=== PATIENT | female | born 1940 | race Caucasian/White ===

== ENCOUNTER 2017-01-03 13:06 | Emergency (ER) | payer OTHER ==
[~2017-01-03] VITALS: Ht 160 cm; Wt 63.0 kg
[~2017-01-03 13:06] MED LIST: ALBU1AER9 INH; CALC500T68 PO; CHOL2000 PO; FLNIN/ NAE; GARL400T4 PO; IPRA1AER2 INH; MULT-506 PO; TRAM-10 PO; TRIATAB3 PO
[2017-01-03 13:12] VITALS: TEMP 37; Ht 160 cm; Wt 63.0 kg
[2017-01-03] MEDS ORDERED: SODIUM CHLORIDE 0.9% 1000ML 1,000 ML IV STA (13:52)
[2017-01-03] MEDS ORDERED: ONDANSETRON INJ 2 MG/ML 2 ML VIAL IV STA (13:52)
[2017-01-03] MEDS ORDERED: GARL400T12 PO (13:53)
[2017-01-03] MEDS ORDERED: ALBU18002 INH (13:53)
[2017-01-03] MEDS ORDERED: HYDROmorphone INJ 0.5 MG/0.5 ML SYR IV STA (13:55)
--- NOTE | 2017-01-03 14:00 | EMERGENCY ROOM VISIT NOTE ---
History Report prepared by Jaleesa: Violetta Sosa Under the Supervision of: Dr. Wilner Crook D.O. First contact with patient: 13:37 Chief Complaint: ABDOMINAL PAIN Stated Complaint: PAIN IN STOMACH-BETWEEN BREAST BONE INTO BACK History of Present Illness The patient is a 77 year old female who presents to the Emergency Room with complaints of persistent, radiating lower abdominal pain that began last Sunday. She currently rates her discomfort as a 6/10 in severity. The patient stats that she has noticed the pain starting in her lower abdomen, radiating up through her abdomen to her right chest and to her right lung. She states that her discomfort is worsened with lying flat and with eating. The patient notes that the pain is radiating to her right upper back, but denies any lower back pain. She states that she consulted her PCP and states that she was instructed to take omeprazole and denies any relief of her symptoms. The patient denies any current pain to her lower extremities. She states that she has arthritis in her hips and experiences intermittent cramps to her legs. The patient notes a history of COPD and breast cancer in 2002 and 2007. She states that she has back problems dating back to 1991, noting that she has gone to therapy for her symptoms. Source of History: patient Onset: last Sunday Position: abdomen Symptom Intensity: 6/10 Quality: other (radiating) Timing: other (persistent) Associated Symptoms: + back pain, + chest pain Review of Systems See HPI for pertinent positives & negatives. A total of 10 systems reviewed and were otherwise negative. Past Medical & Surgical Medical Problems: (1) Arthritis (2) Back pain (3) Breast cancer (4) COPD (chronic obstructive pulmonary disease) (5) HTN (hypertension) (6) Hypertension Surgical Problems: (1) History of back surgery Family History Cancer Hypertension Social History Smoking Status: Former Smoker Alcohol Use: none Drug Use: none Marital Status: single Occupation Status: retired Current/Historical Medications Scheduled Fluticasone Propionate (Fluticasone Propionate), 1 SPRAY YESI DAILY Omeprazole (Prilosec), 20 MG PO DAILY Scheduled PRN Albuterol Sulfate (Proair Respiclick), 2 PUFFS INH Q4H PRN for SOB/Wheezing Oxycodone Immediate Rel Tab (Roxicodone Ir), 1-2 TAB PO Q4H PRN for Severe Pain Tramadol (Ultram), 50 MG PO BID PRN for Pain Allergies Coded Allergies: Prednisone (Unverified Allergy, Intermediate, face flushed and itching on face, 01/03/17) Dexamethasone (Verified Allergy, Mild, 01/03/17) Indomethacin (Verified Allergy, Mild, 01/03/17) Morphine (Verified Allergy, Unknown, vomiting, 01/03/17) Propoxyphene (Verified Allergy, Unknown, FROM DARVOCET, 01/03/17) Replaces DARVOCET-N 10 Gabapentin (Unverified Adverse Reaction, Unknown, NAUSEA, 01/03/17) Physical Exam Vital Signs Date Time Temp Pulse Resp B/P Pulse Ox O2 Delivery O2 Flow Rate FiO2 01/03/17 17:09 82 18 180/88 96 01/03/17 15:00 78 18 147/68 97 Room Air 01/03/17 13:12 37.0 89 19 139/74 96 Room Air Physical Exam GENERAL: Patient is awake, alert, and in no acute distress. Patient is resting comfortably and showing no signs of anxiety EYES: The conjunctivae are clear. The pupils are round and reactive. EARS, NOSE, MOUTH AND THROAT: The nose is without any evidence of any deformity. Mucous membranes are moist tongue is midline NECK: The neck is nontender and supple. RESPIRATORY: Scattered rhonchi noted throughout. No tachypnea or conversational dyspnea. CARDIOVASCULAR: Regular rate and rhythm noted there no murmurs rubs or gallops normal S1 normal S2 GASTROINTESTINAL: The abdomen is mildly distended, but soft. Diffuse tenderness to palpation. No guarding or rigidity noted. MUSCULOSKELETAL/EXTREMITIES: There is no evidence of gross deformity full range of motion is noted in the hips and shoulders SKIN: There is no obvious evidence of any rash. There are no petechiae, pallor or cyanosis noted. NEUROLOGIC: Patient is awake alert and oriented x3. Medical Decision & Procedures ER Provider Diagnostic Interpretation: Radiology results as stated below per my review and radiologist interpretation: KUB CLINICAL HISTORY: Generalized abdominal pain. FINDINGS: 2 AP, portable, supine abdominal radiographs are correlated with abdominal CT dated 07/17/2016. There is a nonobstructed abdominal bowel gas pattern. Mild colonic fecal retention is observed. No evidence of intraperitoneal free air is seen on this supine examination. Numerous calcified granulomas are seen in the spleen. There is no radiographic evidence of nephrolithiasis. A large phlebolith is again seen in the left hemipelvis. The skeletal structures are osteopenic. Mild lumbosacral spondylosis is observed. IMPRESSION: Nonobstructed abdominal bowel gas pattern. Electronically signed by: Kyle Land M.D. 01/03/2017 2:49 PM Dictated Date/Time: 01/03/2017 2:48 PM SINGLE VIEW CHEST CLINICAL HISTORY: Generalized abdominal pain. FINDINGS: An AP, portable, upright chest radiograph is compared to study dated 09/23/2016. The examination is mildly degraded by portable technique, apical lordotic positioning, and patient rotation. The cardiomediastinal silhouette is unremarkable. There is mild atherosclerotic calcification of the thoracic aorta. Chronic interstitial thickening is unchanged. Chronic blunting of the left posterior sulcus is again noted and likely related to pleural thickening. The lungs and pleural spaces are otherwise clear. No pneumothorax is seen. The skeletal structures are osteopenic. Calcific tendinopathy is present in both shoulders. The bony thorax is grossly intact. IMPRESSION: No acute cardiopulmonary abnormality. Electronically signed by: Kyle Land M.D. 01/03/2017 2:43 PM Dictated Date/Time: 01/03/2017 2:[address] combination TECHNIQUE: Transaxial acquisition pre and postcontrast administration. Multi axial reformatted images. FINDINGS: Mild atherosclerotic change thoracic aorta. Pulmonary vasculature enhances appropriately. There is no evidence for aneurysm or dissection. Lungs are grossly clear. IMPRESSION: 1. No evidence for aneurysm or dissection. 2. No evidence of pulmonary emboli. 3. Lungs are clear. Electronically signed by: Samy Bhat M.D. 01/03/2017 4:07 PM Dictated Date/Time: 01/03/2017 4:02 PM Laboratory Results 01/03/17 14:10 Red Blood Count 4.40, Mean Corpuscular Volume 81.8, Mean Corpuscular Hemoglobin 28.9, Mean Corpuscular Hemoglobin Concent 35.3, Mean Platelet Volume 9.4, Neutrophils (%) (Auto) 58.6, Lymphocytes (%) (Auto) 35.2, Monocytes (%) (Auto) 4.2, Eosinophils (%) (Auto) 1.4, Basophils (%) (Auto) 0.3, Neutrophils # (Auto) 6.24, Lymphocytes # (Auto) 3.74, Monocytes # (Auto) 0.45, Eosinophils # (Auto) 0.15, Basophils # (Auto) 0.03 01/03/17 14:10 Test 01/03/17 14:10 01/03/17 14:15 White Blood Count 10.64 K/uL (4.8-10.8) Red Blood Count 4.40 M/uL (4.2-5.4) Hemoglobin 12.7 g/dL (12.0-16.0) Hematocrit 36.0 % (37-47) Mean Corpuscular Volume 81.8 fL (80-100) Mean Corpuscular Hemoglobin 28.9 pg (25-34) Mean Corpuscular Hemoglobin Concent 35.3 g/dl (32-36) Platelet Count 323 K/uL (130-400) Mean Platelet Volume 9.4 fL (7.4-10.4) Neutrophils (%) (Auto) 58.6 % Lymphocytes (%) (Auto) 35.2 % Monocytes (%) (Auto) 4.2 % Eosinophils (%) (Auto) 1.4 % Basophils (%) (Auto) 0.3 % Neutrophils # (Auto) 6.24 K/uL (1.4-6.5) Lymphocytes # (Auto) 3.74 K/uL (1.2-3.4) Monocytes # (Auto) 0.45 K/uL (0.11-0.59) Eosinophils # (Auto) 0.15 K/uL (0-0.5) Basophils # (Auto) 0.03 K/uL (0-0.2) RDW Standard Deviation 38.2 fL (36.4-46.3) RDW Coefficient of Variation 12.7 % (11.5-14.5) Immature Granulocyte % (Auto) 0.3 % Immature Granulocyte # (Auto) 0.03 K/uL (0.00-0.02) Prothrombin Time 9.8 SECONDS (9.0-12.0) Prothromb Time International Ratio 0.9 (0.9-1.1) Activated Partial Thromboplast Time 23.2 SECONDS (21.0-31.0) Partial Thromboplastin Ratio 0.9 Anion Gap 8.0 mmol/L (3-11) Est Creatinine Clear Calc Drug Dose 49.1 ml/min Estimated GFR () 77.7 Estimated GFR (Non- 67.1 BUN/Creatinine Ratio 14.7 (10-20) Calcium Level 8.9 mg/dl (8.5-10.1) Total Bilirubin 0.3 mg/dl (0.2-1) Direct Bilirubin < 0.1 mg/dl (0-0.2) Aspartate Amino Transf (AST/SGOT) 14 U/L (15-37) Alanine Aminotransferase (ALT/SGPT) 16 U/L (12-78) Alkaline Phosphatase 90 U/L (45-117) Total Creatine Kinase 65 U/L (26-192) Creatine Kinase MB 0.8 ng/ml (0.5-3.6) Creatine Kinase MB Ratio 1.2 (0-3.0) Troponin I < 0.015 ng/ml (0-0.045) Total Protein 7.0 gm/dl (6.4-8.2) Albumin 3.4 gm/dl (3.4-5.0) Lipase 111 U/L (73-393) Urine Color YELLOW Urine Appearance CLEAR (CLEAR) Urine pH 5.0 (4.5-7.5) Urine Specific [place] 1.012 (1.000-1.030) Urine Protein NEG (NEG) Urine Glucose (UA) NEG (NEG) Urine Ketones NEG (NEG) Urine Occult Blood NEG (NEG) Urine Nitrite NEG (NEG) Urine Bilirubin NEG (NEG) Urine Urobilinogen NEG (NEG) Urine Leukocyte Esterase NEG (NEG) Laboratory results per my review. Medications Administered Medications (Trade) Dose Ordered Sig/Chetan Route Start Time Stop Time Status Last Admin Dose Admin Sodium Chloride (Nss 1000ml) 1,000 ml @ 999 mls/hr Q1H1M STAT IV 01/03/17 13:52 01/03/17 14:52 DC 01/03/17 14:44 999 MLS/HR Ondansetron HCl (Zofran Inj) 4 mg NOW STAT IV 01/03/17 13:52 01/03/17 13:53 DC 01/03/17 14:44 4 MG Hydromorphone HCl (Dilaudid Inj) 0.5 mg NOW STAT IV 01/03/17 13:55 01/03/17 13:56 DC 01/03/17 14:45 0.5 MG ECG Indication: abdominal pain, chest pain Rate (beats per minute): 75 Rhythm: normal sinus Findings: no ectopy, other (No acute ST segment abnormalities) ED Course 1350: The patient was evaluated in room B7. A complete history and physical examination were performed. 1352: Ordered Zofran Inj 4 mg IV, Sodium Chloride 1000 ml @ 999 mls/hr IV. 1355: Ordered Dilaudid Inj 0.5 mg IV. 1528: I reevaluated the patient and she is resting comfortably. She is going to have a CT scan. 1618: I reevaluated the patient and she is resting comfortably. I discussed all the exam findings with her and I discussed the treatment plan. She verbalized complete understanding and agreement. She is ready to go home. Medical Decision Differential diagnosis: Etiologies such as appendicitis, diverticulitis, PUD, biliary pathology, UTI, pancreatitis, obstruction, mesenteric ischemia, aortic pathology, infections, inflammatory bowel disease, renal colic, as well as others were entertained. Nursing notes reviewed. The patient is a 77-year-old female who presented to the emergency department for evaluation of upper abdominal pain which went to her chest or lower abdomen and her back. The patient's physical exam was not consistent with an acute surgical abdomen. Her EKG did not reveal any acute ischemic changes. I discussed the patient's laboratory and radiographic studies with her. She was treated with IV fluids IV pain medicine and on subsequent reevaluation was feeling much better. The patient did not have any signs of dissection on CT dissection study. The patient may be suffering from upper abdominal pain secondary to gastritis or early peptic ulcer disease. I discussed this with the patient. She was encouraged to rest and avoid any strenuous activity. She was encouraged to call her primary care physician to schedule follow-up appointment versus possible. She was also encouraged to return to emergency department immediately if symptoms change worsen or if the need arises. Impression Primary Impression: Epigastric abdominal pain Additional Impression: Right-sided chest pain Scribe Attestation The scribe's documentation has been prepared under my direction and personally reviewed by me in its entirety. I confirm that the note above accurately reflects all work, treatment, procedures, and medical decision making performed by me. Departure Information Dispostion Home / Self-Care Prescriptions Oxycodone Immediate Rel Tab (ROXICODONE IR) 5 Mg Tab 1-2 TAB PO Q4H Y for Severe Pain, #24 TAB Prov: Wilner Crook, DO 01/03/17 Omeprazole (PRILOSEC) 20 Mg Cap 20 MG PO DAILY, #30 CAP Prov: Wilner Crook, DO 01/03/17 Referrals All Lance M.D. (PCP) Forms HOME CARE DOCUMENTATION FORM, IMPORTANT VISIT INFORMATION Patient Instructions ED Abd Pain Unkn Cause Fem, My [facility] Additional Instructions Call your family in the morning to schedule a follow-up appointment. Rest and avoid any strenuous activity. Continue all medications as prescribed. Return to the emergency Department immediately if symptoms change worsen or if the need arises. Problem Qualifiers
[2017-01-03 14:23] LABS: BASO % 0.3 %; BASO ABS # 0.03 K/uL (0-0.2); COMPLETE YES; EOS % 1.4 %; IG% 0.3 %; LYMPH % 35.2 %; LYMPH ABS # 3.74 K/uL (1.2-3.4); MEAN CELL VOLUME 81.8 fL (80-100); MEAN CORPUSCULAR HEMOGLOBIN 28.9 pg (25-34); MEAN CORPUSCULAR HGB CONC 35.3 g/dl (32-36); MEAN PLATELET VOLUME 9.4 fL (7.4-10.4); MONO % 4.2 %; NEUT % 58.6 %; PLATELET COUNT 323 K/uL (130-400); WHITE BLOOD COUNT 10.64 K/uL (4.8-10.8)
[2017-01-03 14:32] LABS: INR 0.9 (0.9-1.1); PARTIAL THROMBOPLASTIN RATIO 0.9; PROTHROMBIN TIME (PATIENT) 9.8 SECONDS (9.0-12.0)
[2017-01-03 14:44] LABS: ALT/SGPT 16 U/L (12-78); BLOOD UREA NITROGEN 12 mg/dl (7-18); BUN/CREATININE RATIO 14.7 (10-20); CALCIUM 8.9 mg/dl (8.5-10.1); CARBON DIOXIDE 29 mmol/L (21-32); CHLORIDE 103 mmol/L (98-107); CREATININE 0.83 mg/dl (0.60-1.20); GLUCOSE 82 mg/dl (70-99); POTASSIUM 4.1 mmol/L (3.5-5.1); SODIUM 140 mmol/L (136-145)
--- NOTE | 2017-01-03 14:44 | DIAGNOSTIC IMAGING REPORT ---
SINGLE VIEW CHEST CLINICAL HISTORY: Generalized abdominal pain. FINDINGS: An AP, portable, upright chest radiograph is compared to study dated 09/23/2016. The examination is mildly degraded by portable technique, apical lordotic positioning, and patient rotation. The cardiomediastinal silhouette is unremarkable. There is mild atherosclerotic calcification of the thoracic aorta. Chronic interstitial thickening is unchanged. Chronic blunting of the left posterior sulcus is again noted and likely related to pleural thickening. The lungs and pleural spaces are otherwise clear. No pneumothorax is seen. The skeletal structures are osteopenic. Calcific tendinopathy is present in both shoulders. The bony thorax is grossly intact. IMPRESSION: No acute cardiopulmonary abnormality. Electronically signed by: Kyle Land M.D. 01/03/2017 2:43 PM Dictated Date/Time: 01/03/2017 2:42 PM
[2017-01-03 14:48] LABS: ALKALINE PHOSPHATASE 90 U/L (45-117); AST/SGOT 14 U/L (15-37); CKMB/CK RATIO 1.2 (0-3.0)
[2017-01-03 14:50] LABS: URINE APPEARANCE CLEAR (CLEAR); URINE BILIRUBIN NEG (NEG); URINE COLOR YELLOW; URINE NITRITE NEG (NEG); URINE SPECIFIC GRAVITY 1.012 (1.000-1.030); UROBILINOGEN NEG (NEG)
--- NOTE | 2017-01-03 14:50 | DIAGNOSTIC IMAGING REPORT ---
KUB CLINICAL HISTORY: Generalized abdominal pain. FINDINGS: 2 AP, portable, supine abdominal radiographs are correlated with abdominal CT dated 07/17/2016. There is a nonobstructed abdominal bowel gas pattern. Mild colonic fecal retention is observed. No evidence of intraperitoneal free air is seen on this supine examination. Numerous calcified granulomas are seen in the spleen. There is no radiographic evidence of nephrolithiasis. A large phlebolith is again seen in the left hemipelvis. The skeletal structures are osteopenic. Mild lumbosacral spondylosis is observed. IMPRESSION: Nonobstructed abdominal bowel gas pattern. Electronically signed by: Kyle Land M.D. 01/03/2017 2:49 PM Dictated Date/Time: 01/03/2017 2:48 PM
[2017-01-03 14:59] LABS: MANUAL MICROSCOPIC REQUIRED? NO; REVIEW REQ? NO
[2017-01-03] MEDS ORDERED: OPTIRAY 320 IV PRN (15:45)
--- NOTE | 2017-01-03 16:08 | DIAGNOSTIC IMAGING REPORT ---
Study chest CT combination TECHNIQUE: Transaxial acquisition pre and postcontrast administration. Multi axial reformatted images. FINDINGS: Mild atherosclerotic change thoracic aorta. Pulmonary vasculature enhances appropriately. There is no evidence for aneurysm or dissection. Lungs are grossly clear. IMPRESSION: 1. No evidence for aneurysm or dissection. 2. No evidence of pulmonary emboli. 3. Lungs are clear. Electronically signed by: Samy Bhat M.D. 01/03/2017 4:07 PM Dictated Date/Time: 01/03/2017 4:02 PM
[2017-01-03] MEDS ORDERED: OMEP20CA9 PO (16:12)
[2017-01-03] MEDS ORDERED: OXYC1TAB3 PO (16:12)
[2017-01-03 17:09] VITALS: BP 180/88; PULSE 82; O2SAT 96
[2017-01-16] MEDS ORDERED: PREG1CAP28 PO (10:33)
== END 2017-01-03 17:09 | disposition home or self-care (01) ==
LOC: C.EDB 13:08
DX: R10.13 Epigastric pain (principal); R07.9 Chest pain, unspecified; M54.9 Dorsalgia, unspecified; I10 Essential (primary) hypertension; M19.90 Unspecified osteoarthritis, unspecified site; J44.9 Chronic obstructive pulmonary disease, unspecified; Z79.899 Other long term (current) drug therapy; Z88.5 Allergy status to narcotic agent; Z88.8 Allergy status to other drugs, medicaments and biological substances; Z85.3 Personal history of malignant neoplasm of breast; Z87.891 Personal history of nicotine dependence; Z82.49 Family history of ischemic heart disease and other diseases of the circulatory system

== ENCOUNTER 2017-01-09 08:18 | Emergency (ER) | payer OTHER ==
[~2017-01-09] VITALS: Ht 160 cm; Wt 63.6 kg
[~2017-01-09 08:18] MED LIST changes: +ALBU18002 INH; -ALBU1AER9 INH; -CALC500T68 PO; -CHOL2000 PO; -GARL400T4 PO; -IPRA1AER2 INH; -MULT-506 PO; +OMEP20CA9 PO; +OXYC1TAB3 PO; -TRIATAB3 PO
[2017-01-09 08:21] VITALS: BP 181/96; PULSE 86; TEMP 37.1; O2SAT 99; Ht 160 cm; Wt 63.6 kg
[2017-01-09] MEDS ORDERED: VALA1TAB31 PO (08:41)
[2017-01-09] MEDS ORDERED: OXYC-57 PO (08:41)
[2017-01-09] MEDS ORDERED: KETOROLAC TROMETHAMINE 60 MG/2 ML VIAL IM STA (08:42)
[2017-01-09] MEDS ORDERED: OMEP20TA PO (08:50)
--- NOTE | 2017-01-09 09:42 | EMERGENCY ROOM VISIT NOTE ---
History Report prepared by Jaleesa: Torres Nielsen Under the Supervision of: Dr. Obed Moore D.O. First contact with patient: 08:36 Chief Complaint: RASH Stated Complaint: PAIN IN BREAST BACK TO LUNGS History of Present Illness The patient is a 77 year old female who presents to the Emergency Room with complaints of a worsening rash starting about 3-4 days ago. The rash is located over her right breast and radiating to the back. She also notes severe pain and itchiness. She was evaluated at the Emergency Room a few days ago for similar symptom. Since discharge, her symptoms have worsened. She has been taking Oxycodone without relief. She denies any fevers, chills, or any other complaints. The patient reports her current symptoms are similar to her past shingles symptoms. Source of History: patient Onset: about 3-4 days ago Position: other (right breast and radiating to the back) Quality: other (rash) Timing: worsening Modifying Factors (Relieving): other (Oxycodone without relief) Associated Symptoms: No chills, No fevers Review of Systems See HPI for pertinent positives & negatives. A total of 10 systems reviewed and were otherwise negative. Past Medical & Surgical Medical Problems: (1) Arthritis (2) Back pain (3) Breast cancer (4) COPD (chronic obstructive pulmonary disease) (5) HTN (hypertension) (6) Hypertension Surgical Problems: (1) History of back surgery Family History Cancer Hypertension Social History Smoking Status: Former Smoker Alcohol Use: none Drug Use: none Marital Status: single Occupation Status: retired Current/Historical Medications Scheduled Fluticasone Propionate (Fluticasone Propionate), 1 SPRAY YESI DAILY Omeprazole (Omeprazole), 20 MG PO DAILY Valacyclovir Hcl (Valtrex), 1 TAB PO TID Scheduled PRN Albuterol Sulfate (Proair Respiclick), 2 PUFFS INH Q4H PRN for SOB/Wheezing Oxycodone/Acetaminophen 5MG/325MG (Percocet 5MG/325MG), 1 TAB PO Q6H PRN for Pain Allergies Coded Allergies: Prednisone (Unverified Allergy, Intermediate, face flushed and itching on face, 01/09/17) Dexamethasone (Verified Allergy, Mild, 01/09/17) Indomethacin (Verified Allergy, Mild, 01/09/17) Morphine (Verified Allergy, Unknown, vomiting, 01/09/17) Propoxyphene (Verified Allergy, Unknown, FROM DARVOCET, 01/09/17) Replaces DARVOCET-N 10 Gabapentin (Unverified Adverse Reaction, Unknown, NAUSEA, 01/09/17) Physical Exam Vital Signs Date Time Temp Pulse Resp B/P Pulse Ox O2 Delivery O2 Flow Rate FiO2 01/09/17 08:21 37.1 86 18 181/96 99 Room Air Physical Exam CONSTITUTIONAL/VITAL SIGNS: Reviewed / noted above. GENERAL: Non-toxic in appearance. INTEGUMENTARY: Warm, dry, and [place]. Small vesicular rash in the right lateral breast positioned in or around the t4 dermatome with pain radiating along the back with the same dermatome. HEAD: Normocephalic. EYES: without scleral icterus or trauma. ENT/OROPHARYNX: clear and moist. LYMPHADENOPATHY/NECK: Is supple without lymphadenopathy or meningismus. RESPIRATORY: Lungs clear and equal. CARDIOVASCULAR: Regular rate and rhythm. GI/ABDOMEN: Soft and nontender. No organomegaly or pulsatile mass. No rebound or guarding. Normal bowel sounds. EXTREMITIES: Warm and well perfused. BACK: No CVA tenderness. NEUROLOGICAL: Intact without focal deficits. PSYCHIATRIC: normal affect. MUSCULOSKELETAL: Normally developed with good muscle tone. Medical Decision & Procedures Medications Administered Medications (Trade) Dose Ordered Sig/Chetan Route Start Time Stop Time Status Last Admin Dose Admin Ketorolac Tromethamine (Toradol Inj) 60 mg NOW STAT IM 01/09/17 08:42 01/09/17 08:44 DC 01/09/17 08:57 60 MG Valacyclovir HCl (Valtrex Tab) 1,000 mg NOW ONCE PO 01/09/17 08:45 01/09/17 08:46 DC 01/09/17 08:57 1,000 MG ED Course 0836: Previous medical records were reviewed. The patient was evaluated in room B07. A complete history and physical examination was performed. 0842: Toradol Inj 60 mg IM 0845: Valtrex Tab 1000 mg PO 0909: On reevaluation, the patient is resting comfortably. I discussed the results and findings with the patient. She verbalized agreement of the treatment plan. She was discharged home. Medical Decision Differential diagnosis: Etiologies such as contact dermatitis, viral exanthem, urticaria, allergic reaction, Fajardo-Kee syndrome, toxic epidermal necrolysis, erythema multiforme, cellulitis, scabies, HSV, varicella, zoster, eczema, staph scalded skin syndrome, fungal infection, as well as others were entertained. This is a 77-year-old female who presents to the ED with a chief complaint of a rash on her right and her chest wall. She came in on the for discomfort and had a complete workup at that time. Nothing was discovered she was sent home on oxycodone. Several days after this, she developed a rash on her right breast. This is several days ago that it developed. She reports pain that radiates into her back along the same dermatome. Her rash is consistent with a shingles rash. She was started on valacyclovir as well as Percocet. She was told to follow-up with her doctor this week for recheck. She was felt to be stable for discharge. Impression Primary Impression: Shingles Scribe Attestation The scribe's documentation has been prepared under my direction and personally reviewed by me in its entirety. I confirm that the note above accurately reflects all work, treatment, procedures, and medical decision making performed by me. Departure Information Dispostion Home / Self-Care Prescriptions Oxycodone/Acetaminophen 5MG/325MG (PERCOCET 5MG/325MG) Tab 1 TAB PO Q6H Y for Pain, #20 TAB Prov: Obed Moore D.O. 01/09/17 Valacyclovir Hcl (VALTREX) 1 Gm Tab 1 TAB PO TID for 7 Days, #21 TAB Prov: Obed Moore D.O. 01/09/17 Referrals All Lance M.D. (PCP) Forms HOME CARE DOCUMENTATION FORM, IMPORTANT VISIT INFORMATION, WORK / SCHOOL INSTRUCTIONS Patient Instructions My [facility]. Additional Instructions Oxycodone and valacyclovir as prescribed. Follow-up with your doctor for recheck later this week.
[2017-01-16] MEDS ORDERED: PREG1CAP28 PO (10:33)
== END 2017-01-10 09:04 | disposition home or self-care (01) ==
LOC: C.EDB 08:20
DX: B02.9 Zoster without complications (principal); I10 Essential (primary) hypertension; J44.9 Chronic obstructive pulmonary disease, unspecified; M19.90 Unspecified osteoarthritis, unspecified site; Z85.3 Personal history of malignant neoplasm of breast; Z79.899 Other long term (current) drug therapy; Z87.891 Personal history of nicotine dependence; Z88.5 Allergy status to narcotic agent; Z88.8 Allergy status to other drugs, medicaments and biological substances; Z80.9 Family history of malignant neoplasm, unspecified; Z82.49 Family history of ischemic heart disease and other diseases of the circulatory system

== ENCOUNTER 2017-02-21 23:52 | Emergency (ER) | payer OTHER ==
[~2017-02-21] VITALS: Ht 160 cm; Wt 64.2 kg
[~2017-02-21 23:52] MED LIST changes: -OMEP20CA9 PO; +OMEP20TA PO; +OXYC-57 PO; -OXYC1TAB3 PO; +PREG1CAP28 PO; -TRAM-10 PO
[2017-02-21 23:59] VITALS: TEMP 36.7; Ht 160 cm; Wt 64.2 kg
--- NOTE | 2017-02-22 00:27 | EMERGENCY ROOM VISIT NOTE ---
History Report prepared by Jaleesa: Angel Villavicencio Under the Supervision of: Dr. Winston Paige M.D. First contact with patient: 00:19 Chief Complaint: BACK PAIN Stated Complaint: PAIN IN LEGS AND BACK,BLOOD PRESSURE UP History of Present Illness The patient is a 77 year old female who presents to the Emergency Room with complaints of increased lower back pain today. The patient describes cramping pain that radiates down her left leg. The pain is worse when she is laying down. She takes Tramadol for chronic pain, but did not have any today as she ran out last night. Her pain is usually kept under control with Tramadol. The patient denies incontinence of bowel or bladder and denies lower extremity weakness. She also denies any recent episodes of syncope or abdominal pain. The patient has an appointment with Orthopedics on February 27. She has a history of right-side shingles. The rash has mostly resolved from her last flare up. Source of History: patient Onset: today Position: back (lower) Quality: cramping Timing: other (increased) Modifying Factors (Worsening): other (laying down) Modifying Factors (Relieving): other (Tramadol) Associated Symptoms: No LOC, No abdominal pain, No weakness Review of Systems See HPI for pertinent positives & negatives. A total of 6 systems reviewed and were otherwise negative. Past Medical & Surgical Medical Problems: (1) Arthritis (2) Back pain (3) Breast cancer (4) COPD (chronic obstructive pulmonary disease) (5) HTN (hypertension) (6) Hypertension Surgical Problems: (1) History of back surgery Family History Cancer Hypertension Social History Smoking Status: Never Smoker Alcohol Use: none Drug Use: none Marital Status: single Occupation Status: retired Current/Historical Medications Scheduled Fluticasone Propionate (Fluticasone Propionate), 1 SPRAY YESI DAILY Omeprazole (Omeprazole), 20 MG PO DAILY Pregabalin (Lyrica), 75 MG PO BID Scheduled PRN Albuterol Sulfate (Proair Respiclick), 2 PUFFS INH Q4H PRN for SOB/Wheezing Oxycodone/Acetaminophen 5MG/325MG (Percocet 5MG/325MG), 1 TAB PO Q6H PRN for Pain Tramadol (Ultram), 50-100 MG PO Q6H PRN for Pain Allergies Coded Allergies: Prednisone (Unverified Allergy, Intermediate, face flushed and itching on face, 02/22/17) Dexamethasone (Verified Allergy, Mild, 02/22/17) Indomethacin (Verified Allergy, Mild, 02/22/17) Morphine (Verified Allergy, Unknown, vomiting, 02/22/17) Propoxyphene (Verified Allergy, Unknown, FROM DARVOCET, 02/22/17) Replaces DARVOCET-N 10 Gabapentin (Unverified Adverse Reaction, Unknown, NAUSEA, 02/22/17) Physical Exam Vital Signs Date Time Temp Pulse Resp B/P Pulse Ox O2 Delivery O2 Flow Rate FiO2 02/22/17 00:47 95 20 181/90 98 02/21/17 23:59 36.7 93 20 175/113 98 Room Air Physical Exam GENERAL: Patient is uncomfortable appearing and in mild distress. HEENT: No acute trauma, normocephalic atraumatic, mucous membranes moist, no nasal congestion, no scleral icterus. NECK: No stridor, no adenopathy, no meningismus, trachea is midline. LUNGS: No dyspnea. Clear to auscultation and equal bilaterally. No wheeze, no rhonchi. HEART: Regular rate and rhythm. No murmurs, rubs, gallops appreciated. ABDOMEN: Soft, nontender, bowel sounds positive, no masses appreciated, no peritonitis. BACK: No midline tenderness, no CVA tenderness EXTREMITIES: Normal motion all extremities, no cyanosis, no edema. NEUROLOGIC: Alert and oriented, no acute motor or sensory deficits, no focal weakness, cranial nerves grossly intact. SKIN: No jaundice, no diaphoresis. Several healing lesions over the right lateral breast. Medical Decision & Procedures Medications Administered Medications (Trade) Dose Ordered Sig/Chetan Route Start Time Stop Time Status Last Admin Dose Admin Oxycodone/ Acetaminophen (Percocet 5/ 325MG Home Pack) 1 homepack UD ONCE PO 02/22/17 00:30 02/22/17 00:31 DC 02/22/17 00:34 1 HOMEPACK Tramadol HCl (Ultram Home Pack) 1 homepack UD ONCE PO 02/22/17 00:30 02/22/17 00:31 DC 02/22/17 00:34 1 HOMEPACK ED Course 0021: The patient was evaluated in room A2. A complete history and physical exam was performed. 0028: The [place] Prescription Drug Monitoring Program was reviewed regarding this patient. She received a Tramadol prescription on 02/02. 0030: Discussed the discharge instructions with the patient. She verbalized understanding and agreement. The patient is ready for discharge. 0030: Tramadol 1 homepack PO, Percocet 5/325 mg PO homepack. Medical Decision Differential: Musculoskeletal, Disc Herniation, Fracture, Cord Compression, Discitis, Infectious, Aortic Pathology, Renal Colic, UTI/Pyelonephritis, Acute Exacerbation of Chronic Pain, Sciatica, Cauda Equina, amongst other pathologies entertained. 74 yr old female with chronic low back issues and periodic sciatica. Notes acting up over last day since she ran out of her tramadol. Regular Rx of tramadol which she tolerates well. Will give limited number rx along with to go of Percocet for acute symptoms tonight as she will have to take once she drives home. No neuro deficits, no abdominal pain and n/v intact thus I do not feel imaging necessary and neither dose patient. HTN on arrival likely secondary to pain as has been documented many times previously in chart. Discussed this with patient and she will follow up with PCP. Discussed symptoms requiring RTED. Patient notes she usually does not do Steroids for this type of pain which seems reasonable as likely flare up is due to running out of meds. [place] Drug Monitoring Program Search Results: patient reviewed within database Drug Monitoring Findings: She received a Tramadol prescription on 02/02. Impression Primary Impression: Acute exacerbation of chronic low back pain Additional Impressions: Sciatica of left side HTN (hypertension) Scribe Attestation The scribe's documentation has been prepared under my direction and personally reviewed by me in its entirety. I confirm that the note above accurately reflects all work, treatment, procedures, and medical decision making performed by me. Departure Information Dispostion Home / Self-Care Prescriptions Tramadol (Ultram) 50 Mg Tab 50-100 MG PO Q6H Y for Pain, #15 TAB Prov: Winston Paige M.D. 02/22/17 Referrals All Lance M.D. (PCP) Forms HOME CARE DOCUMENTATION FORM, IMPORTANT VISIT INFORMATION Patient Instructions ED Sciatica, My [facility] Additional Instructions It is important to follow up with your primary care provider for further evaluation and treatment. Your blood pressure was elevated today and thus you should get it rechecked by your primary care provider and discuss further treatment options as needed. You have received a narcotic pain medication. These medications may cause drowsiness and should not be used with other sedative medications. Do not drive , drink alcohol, perform dangerous activities, nor make important decisions after taking these medications. retirement use or inappropriate use may lead to addiction. Problem Qualifiers Additional Impressions: HTN (hypertension) Hypertension type: unspecified secondary hypertension Qualified Codes: I15.9 - Secondary hypertension, unspecified
[2017-02-22] MEDS ORDERED: TRAMADOL HCL 50 MG HOME PACK PO ONE (00:30)
[2017-02-22] MEDS ORDERED: PERCOCET HOME PACK PO ONE (00:30)
[2017-02-22] MEDS ORDERED: TRAM-10 PO (00:31)
[2017-02-22 00:47] VITALS: BP 181/90; PULSE 95; O2SAT 98
== END 2017-02-22 00:49 | disposition home or self-care (01) ==
LOC: C.EDB 23:55 → C.EDA 02-22 00:49
DX: M54.5 Low back pain (principal); M53.3 Sacrococcygeal disorders, not elsewhere classified; G89.29 Other chronic pain; I10 Essential (primary) hypertension; J44.9 Chronic obstructive pulmonary disease, unspecified; Z98.890 Other specified postprocedural states; Z79.899 Other long term (current) drug therapy; Z88.5 Allergy status to narcotic agent; Z88.8 Allergy status to other drugs, medicaments and biological substances; Z80.9 Family history of malignant neoplasm, unspecified; Z82.49 Family history of ischemic heart disease and other diseases of the circulatory system

== ENCOUNTER → 2017-02-22 | Outpatient (CLI) | payer OTHER ==
[~2017-02-22] MED LIST changes: +CALC-51 PO; +CHOL2000 PO; +HYDR25TA4 PO; +IPRASOL4 INH; +LISI-461 PO; +MULT-916 PO; +TRAM-10 PO
--- NOTE | 2017-02-22 15:07 | MAMMOGRAPHY REPORT ---
BILATERAL DIGITAL SCREENING MAMMOGRAM TOMOSYNTHESIS WITH CAD: 02/22/2017 CLINICAL HISTORY: Asymptomatic. Personal history of breast cancer. TECHNIQUE: Breast tomosynthesis in addition to standard 2D mammography was performed. Current study was also evaluated with a Computer Aided Detection (CAD) system. COMPARISON: Comparison is made to exams dated: 02/18/2016 mammogram, 02/10/2015 mammogram, 02/09/2014 m ammogram, 02/06/2013 mammogram, 02/05/2012 mammogram, and 02/01/2011 mammogram - [facility]. BREAST COMPOSITION: There are scattered areas of fibroglandular density in both breasts. FINDINGS: No suspicious masses, calcifications, or areas of architectural distortion are noted in e ither breast. There has been no significant interval change compared to prior exams. There are stab le post surgical changes in the left 12:00 breast from prior lumpectomy. A biopsy marker clip is ag ain noted at the lumpectomy bed. IMPRESSION: ACR BI-RADS CATEGORY 2: BENIGN There is no mammographic evidence of malignancy. A 1 year screening mammogram is recommended. The p atient will receive written notification of the results. Approximately 10% of breast cancers are not detected with mammography. A negative mammographic repor t should not delay biopsy if a clinically suggestive mass is present. Amanda Amador M.D. /:02/22/2017 13:35:34 Railroad Track Mechanic: Winifred ESTES(Dustin)(M), [facility] letter sent: Normal 1/2 BI-RADS Code: ACR BI-RADS Category 2: Benign
== END | disposition home or self-care (01) ==
LOC: C.MAMM 09:32
PROVIDERS: ATTEND Family Medicine
DX: Z12.31 Encounter for screening mammogram for malignant neoplasm of breast (principal); Z85.3 Personal history of malignant neoplasm of breast; Z08 Encounter for follow-up examination after completed treatment for malignant neoplasm

== ENCOUNTER 2017-03-18 07:29 | Emergency (ER) | payer OTHER ==
[~2017-03-18] VITALS: Ht 157.5 cm; Wt 65.8 kg
[~2017-03-18 07:29] MED LIST changes: -CALC-51 PO; -CHOL2000 PO; -HYDR25TA4 PO; -IPRASOL4 INH; -LISI-461 PO; -MULT-916 PO
[2017-03-18 07:34] VITALS: TEMP 36.5; Ht 157.5 cm; Wt 65.8 kg
[2017-03-18] MEDS ORDERED: CHOL2000 PO (07:59)
[2017-03-18] MEDS ORDERED: CALC-51 PO (07:59)
[2017-03-18] MEDS ORDERED: IPRASOL4 INH (07:59)
[2017-03-18] MEDS ORDERED: TRAM-10 PO (07:59)
[2017-03-18] MEDS ORDERED: HYDR25TA4 PO (07:59)
[2017-03-18] MEDS ORDERED: TRAMADOL HCL 50 MG TAB PO STA (08:02)
[2017-03-18 08:11] VITALS: BP 201/88; PULSE 88; O2SAT 96
--- NOTE | 2017-03-18 08:11 | EMERGENCY ROOM VISIT NOTE ---
History Report prepared by Jaleesa: Judah Kidd Under the Supervision of: Dr. Fabiola Olson D.O. First contact with patient: 07:44 Chief Complaint: MEDICATION REFILL REQUEST Stated Complaint: CIERA. LEG PAIN/HIP History of Present Illness The patient is a 77 year old female who presents to the Emergency Room with complaints of a medication refill request today. Per the nurse, she was prescribed Tramadol 50 mg BID, but has been taking it TID. She notes that she ran out of her Tramadol prescription as she forgot to order more. she last took Tramadol 2 days ago. The patient states she receives her Tramadol [address] [facility] for her ongoing back pain. She reports she had back surgery, and has had pain in her back that radiates down the back of both her legs, left worse than right. The patient states she cannot take only 2 Tramadol per day as prescribed because "that amount does not help," and instead admits to taking 3 per day. She indicates that she is going to [facility] tomorrow to follow up with her Tramadol prescription. The pain admits to currently having the radiating back pain, and also some abdominal pain from a recent GI bug. Source of History: patient Onset: today Position: back Quality: other (medication request for back pain) Timing: other (episode) Associated Symptoms: + abdominal pain Note: Patient reports bilateral leg pain. Review of Systems See HPI for pertinent positives & negatives. A total of 10 systems reviewed and were otherwise negative. Past Medical & Surgical Medical Problems: (1) Arthritis (2) Back pain (3) Breast cancer (4) COPD (chronic obstructive pulmonary disease) (5) HTN (hypertension) (6) Hypertension Surgical Problems: (1) History of back surgery Family History Cancer Hypertension Social History Smoking Status: Current Every Day Smoker Alcohol Use: none Drug Use: none Marital Status: single Occupation Status: retired Current/Historical Medications Scheduled Calcium Carbonate-Vitamin D (Calcium), 1 TAB PO DAILY Cholecalciferol (Vitamin D3), 2,000 UNITS PO DAILY Fluticasone Propionate (Fluticasone Propionate), 1 SPRAY YESI DAILY Hydrochlorothiazide (Hctz), 25 MG PO DAILY Omeprazole (Omeprazole), 20 MG PO DAILY Scheduled PRN Albuterol Sulfate (Proair Respiclick), 2 PUFFS INH Q4H PRN for SOB/Wheezing Ipratropium-Albuterol (Duoneb), 1 TREATMENT INH Q4H PRN for SOB/Wheezing Tramadol (Ultram), 50 MG PO BID PRN for Pain Allergies Coded Allergies: Prednisone (Unverified Allergy, Intermediate, face flushed and itching on face, 03/18/17) Dexamethasone (Verified Allergy, Mild, 03/18/17) Indomethacin (Verified Allergy, Mild, 03/18/17) Morphine (Verified Allergy, Unknown, vomiting, 03/18/17) Propoxyphene (Verified Allergy, Unknown, FROM DARVOCET, 03/18/17) Replaces DARVOCET-N 10 Gabapentin (Unverified Adverse Reaction, Unknown, NAUSEA, 03/18/17) Physical Exam Vital Signs Date Time Temp Pulse Resp B/P Pulse Ox O2 Delivery O2 Flow Rate FiO2 03/18/17 08:11 88 18 201/88 96 03/18/17 07:34 36.5 83 18 198/99 97 Room Air Physical Exam HEENT: Head - normocephalic and atraumatic Pupils are equal, round, and reactive to light. Extraocular eye muscles are intact, and sclera are anicteric. Nose - moist nasal mucosa without discharge. Mouth - moist buccal mucosa. Oropharynx is nonerythematous and there is no tonsillar exudate or edema noted. Neck: Supple; no JVD, nuchal rigidity, cervical lymphadenopathy. Heart: Regular rate and rhythm. There is a normal S1 and S2 with no murmurs, clicks, or gallops appreciated. Lungs: Clear to auscultation bilaterally with no wheezes, rales, or rhonchi. Abdomen: Soft, completely nontender, nondistended, with good bowel sounds. There are no palpable pulsatile masses or hepatosplenomegaly. There is no guarding, rigidity, or rebound noted. Extremities: No evidence of cyanosis, clubbing, or edema. There are easily palpable peripheral pulses. Skin: warm and dry with good turgor and no rashes. Back: The patient has some discomfort with palpation over the gluteal cleft. Medical Decision & Procedures Medications Administered Medications (Trade) Dose Ordered Sig/Chetan Route Start Time Stop Time Status Last Admin Dose Admin Tramadol HCl (Ultram Tab) 50 mg NOW STAT PO 03/18/17 08:02 03/18/17 08:04 DC 03/18/17 08:13 50 MG Tramadol HCl (Ultram Home Pack) 1 homepack UD ONCE PO 03/18/17 08:15 03/18/17 08:16 DC 03/18/17 08:13 1 HOMEPACK Procedure Medications Ordered: 0802: Ordered Tramadol HCl 50 mg PO. 0815: Ordered Tramadol HCl 1 homepack PO. ED Course 0800: Past medical records reviewed. The patient was evaluated in room B5. A complete history and physical exam was performed. The patient was looked up in the [place] DMP. She was originally's described 50 mg of tramadol 3 times a day but has been changed to twice a day dosing by her PCP. She has run out of her tramadol before she is able to get that refilled. 0802: Ordered Tramadol HCl 50 mg PO. 0815: Ordered Tramadol HCl 1 homepack PO. Medical Decision The patient is a 77 year old female who presents to the Emergency Room with complaints of a medication refill request today. Differential Diagnoses: Exacerbation of chronic low back pain, Tramadol overuse , drug seeking behavior, and inability to tolerate lower dose of Tramadol. The patient has used an increased amount of tramadol and has run out. His complaining of her low back pain which is typical for her. She plans to follow up with her PCP tomorrow and asked if we could prescribe some tramadol until that time. She was given tramadol here in the home pack to use until she can follow-up tomorrow morning. [place] Drug Monitoring Program Search Results: patient reviewed within database, see additional documentation Drug Monitoring Findings: Patient received a 30 day supply of Tramadol 50 mg BID on 02/23/17, which she did not fill until 02/26/17. She was here the day before, 02/22/17, after running out of Tramadol, and received some Tramadol while in the ER. Impression Primary Impression: Encounter for medication refill Additional Impression: Low back pain Scribe Attestation The scribe's documentation has been prepared under my direction and personally reviewed by me in its entirety. I confirm that the note above accurately reflects all work, treatment, procedures, and medical decision making performed by me. Departure Information Dispostion Home / Self-Care Referrals All Lance M.D. (PCP) Patient Instructions My [facility] Additional Instructions You must discuss the Tramadol dosing with Fara tomorrow Problem Qualifiers
[2017-03-18] MEDS ORDERED: TRAMADOL HCL 50 MG HOME PACK PO ONE (08:15)
== END 2017-03-18 08:24 | disposition home or self-care (01) ==
LOC: C.EDB 07:58
DX: Z76.0 Encounter for issue of repeat prescription (principal); M54.5 Low back pain; I10 Essential (primary) hypertension; J44.9 Chronic obstructive pulmonary disease, unspecified; M19.90 Unspecified osteoarthritis, unspecified site; F17.200 Nicotine dependence, unspecified, uncomplicated; Z85.3 Personal history of malignant neoplasm of breast; Z98.890 Other specified postprocedural states; Z79.899 Other long term (current) drug therapy; Z88.5 Allergy status to narcotic agent; Z88.8 Allergy status to other drugs, medicaments and biological substances

== ENCOUNTER → 2017-03-28 | Outpatient (CLI) | payer OTHER ==
[2017-03-26 13:40] LABS: BLOOD UREA NITROGEN 17 mg/dl (7-18); CREATININE 0.81 mg/dl (0.60-1.20)
[~2017-03-28] MED LIST changes: +CALC-51 PO; +CHOL2000 PO; +GADAVIST IV PRN; +HYDR25TA4 PO; +IPRASOL4 INH; +LISI-461 PO; +MULT-916 PO; -OXYC-57 PO; -PREG1CAP28 PO
--- NOTE | 2017-03-28 12:37 | DIAGNOSTIC IMAGING REPORT ---
MRI OF THE LUMBAR SPINE WITH AND WITHOUT CONTRAST CLINICAL HISTORY: Lumbar back pain radiating into both lower extremities. COMPARISON STUDY: Lumbar spine MRI July 11, 2012. TECHNIQUE: Utilizing a 1.5 Selene magnet and dedicated coil, multiplanar, multiecho imaging of the lumbar spine was performed before and after uneventful IV administration of 6 mL of Gadavist. FINDINGS: For purposes of numbering on this exam, the L5-S1 disc space is assigned to axial image 23 of 25. There is minimal anterolisthesis of L5 on S1. Vertebral body heights are maintained. No intracanalicular mass or fluid collection is present. Conus terminates at the upper L2 level. Paravertebral soft tissues are unremarkable. L1-2: The central canal and neural foramen are patent. L2-3: The central canal and neural foramen are patent. L3-4: The central canal is patent. There is mild facet arthrosis. There is mild narrowing of the left neural foramen. Post surgical findings suggestive of a left hemilaminectomy at this level are noted. L4-5: Central canal is patent. There is mild facet arthrosis. There is mild narrowing of both neural foramen. L5-S1: There is a tiny central annular tear. There is moderate facet arthrosis. There is mild narrowing of the neural foramen. Central canal is patent. IMPRESSION: Mild multilevel degenerative changes of the lumbar spine. Patent central canal. Mild multilevel neural foraminal stenosis. Postsurgical changes at the left L3-L4 level. Electronically signed by: Durga Davis M.D. 03/28/2017 12:36 PM Dictated Date/Time: 03/28/2017 12:29 PM
== END | disposition home or self-care (01) ==
LOC: C.MRI 10:18
PROVIDERS: ATTEND Physician Assistant
DX: M54.5 Low back pain (principal)

== ENCOUNTER 2017-04-13 02:15 | Emergency (ER) | payer OTHER ==
[~2017-04-13] VITALS: Ht 160 cm; Wt 67.2 kg
[~2017-04-13 02:15] MED LIST changes: -GADAVIST IV PRN; -LISI-461 PO; -MULT-916 PO
[2017-04-13 02:25] VITALS: TEMP 36.7; Ht 160 cm; Wt 67.2 kg
[2017-04-13 02:58] LABS: BASO % 0.3 %; BASO ABS # 0.03 K/uL (0-0.2); COMPLETE YES; EOS % 1.4 %; HEMATOCRIT 40.9 % (37-47); IG% 0.4 %; LYMPH % 36.1 %; LYMPH ABS # 3.68 K/uL (1.2-3.4); MEAN CELL VOLUME 84.2 fL (80-100); MEAN CORPUSCULAR HEMOGLOBIN 27.8 pg (25-34); MEAN PLATELET VOLUME 9.2 fL (7.4-10.4); MONO % 5.9 %; NEUT % 55.9 %; PLATELET COUNT 349 K/uL (130-400); RED BLOOD COUNT 4.86 M/uL (4.2-5.4); WHITE BLOOD COUNT 10.18 K/uL (4.8-10.8)
--- NOTE | 2017-04-13 02:59 | EMERGENCY ROOM VISIT NOTE ---
History Report prepared by Jaleesa: Torres Nielsen Under the Supervision of: Dr. Fabiola Olsno D.O. First contact with patient: 02:27 Chief Complaint: HYPERTENSION Stated Complaint: HIGH BP History of Present Illness The patient is a 77 year old female who presents to the Emergency Room with complaints of high blood pressure occurring tonight. She was having diaphoresis since yesterday. She woke up tonight and found her blood pressure to be high. She does not take her blood pressure regularly. She has a history of hypertension. She has a history of COPD but reports that she was more short of breath today than normal. 2 days ago, she was diagnosed with sinusitis by her PCP. Since starting Amoxicillin as prescribed by her PCP she has been having a dry mouth. She also complains of chronic back and leg pain. The patient denies any chest pain, abdominal pain, or any other complaints. Source of History: patient Onset: tonight Position: other (global) Quality: other (high blood pressure) Associated Symptoms: + SOB, + diaphoresis, No abdominal pain, No chest pain Review of Systems See HPI for pertinent positives & negatives. A total of 10 systems reviewed and were otherwise negative. Past Medical & Surgical Medical Problems: (1) Arthritis (2) Back pain (3) Breast cancer (4) COPD (chronic obstructive pulmonary disease) (5) HTN (hypertension) (6) Hypertension Surgical Problems: (1) History of back surgery Family History Cancer Hypertension Social History Smoking Status: Current Every Day Smoker Alcohol Use: none Drug Use: none Marital Status: single Occupation Status: retired Current/Historical Medications Scheduled Calcium Carbonate-Vitamin D (Calcium), 1 TAB PO DAILY Cholecalciferol (Vitamin D3), 2,000 UNITS PO DAILY Fluticasone Propionate (Fluticasone Propionate), 1 SPRAY YESI DAILY Hydrochlorothiazide (Hctz), 12.5 MG PO DAILY Lisinopril (Lisinopril), 10 MG PO DAILY Multiple Vitamins W/ Minerals (Multivitamin Adults 50+), 1 TAB PO DAILY Omeprazole (Omeprazole), 20 MG PO DAILY Scheduled PRN Albuterol Sulfate (Proair Respiclick), 2 PUFFS INH Q4H PRN for SOB/Wheezing Ipratropium-Albuterol (Duoneb), 1 TREATMENT INH Q4H PRN for SOB/Wheezing Allergies Coded Allergies: Prednisone (Verified Allergy, Intermediate, face flushed and itching on face, 04/13/17) Dexamethasone (Verified Allergy, Mild, 04/13/17) Indomethacin (Verified Allergy, Mild, 04/13/17) Morphine (Verified Allergy, Unknown, vomiting, 04/13/17) Propoxyphene (Verified Allergy, Unknown, FROM DARVOCET, 04/13/17) Replaces DARVOCET-N 10 Gabapentin (Verified Adverse Reaction, Unknown, NAUSEA, 04/13/17) Physical Exam Vital Signs Date Time Temp Pulse Resp B/P Pulse Ox O2 Delivery O2 Flow Rate FiO2 04/13/17 04:50 72 20 222/83 96 Room Air 04/13/17 03:35 76 20 206/95 96 Room Air 04/13/17 02:46 77 04/13/17 02:25 36.7 84 20 209/98 96 Room Air Physical Exam HEENT: Head - normocephalic and atraumatic Pupils are equal, round, and reactive to light. Extraocular eye muscles are intact, and sclera are anicteric. Nose - moist nasal mucosa without discharge. Mouth - moist buccal mucosa. Oropharynx is nonerythematous and there is no tonsillar exudate or edema noted. Neck: Supple; no JVD, nuchal rigidity, cervical lymphadenopathy. Heart: Regular rate and rhythm. There is a normal S1 and S2 with no murmurs, clicks, or gallops appreciated. Lungs: Clear to auscultation bilaterally with no wheezes, rales, or rhonchi. Abdomen: Soft, completely nontender, nondistended, with good bowel sounds. There are no palpable pulsatile masses or hepatosplenomegaly. There is no guarding, rigidity, or rebound noted. Extremities: No evidence of cyanosis, clubbing, or edema. There are easily palpable peripheral pulses. Skin: warm and dry with good turgor and no rashes. Medical Decision & Procedures ER Provider Diagnostic Interpretation: X-ray results as stated below per interpretation by me: PORTABLE CHEST X-RAY No cardiomegaly, emphysematous changes to the lungs. Laboratory Results 04/13/17 02:45 Red Blood Count 4.86, Mean Corpuscular Volume 84.2, Mean Corpuscular Hemoglobin 27.8, Mean Corpuscular Hemoglobin Concent 33.0, Mean Platelet Volume 9.2, Neutrophils (%) (Auto) 55.9, Lymphocytes (%) (Auto) 36.1, Monocytes (%) (Auto) 5.9, Eosinophils (%) (Auto) 1.4, Basophils (%) (Auto) 0.3, Neutrophils # (Auto) 5.69, Lymphocytes # (Auto) 3.68, Monocytes # (Auto) 0.60, Eosinophils # (Auto) 0.14, Basophils # (Auto) 0.03 04/13/17 02:45 Test 04/13/17 02:45 White Blood Count 10.18 K/uL (4.8-10.8) Red Blood Count 4.86 M/uL (4.2-5.4) Hemoglobin 13.5 g/dL (12.0-16.0) Hematocrit 40.9 % (37-47) Mean Corpuscular Volume 84.2 fL (80-100) Mean Corpuscular Hemoglobin 27.8 pg (25-34) Mean Corpuscular Hemoglobin Concent 33.0 g/dl (32-36) Platelet Count 349 K/uL (130-400) Mean Platelet Volume 9.2 fL (7.4-10.4) Neutrophils (%) (Auto) 55.9 % Lymphocytes (%) (Auto) 36.1 % Monocytes (%) (Auto) 5.9 % Eosinophils (%) (Auto) 1.4 % Basophils (%) (Auto) 0.3 % Neutrophils # (Auto) 5.69 K/uL (1.4-6.5) Lymphocytes # (Auto) 3.68 K/uL (1.2-3.4) Monocytes # (Auto) 0.60 K/uL (0.11-0.59) Eosinophils # (Auto) 0.14 K/uL (0-0.5) Basophils # (Auto) 0.03 K/uL (0-0.2) RDW Standard Deviation 38.1 fL (36.4-46.3) RDW Coefficient of Variation 12.6 % (11.5-14.5) Immature Granulocyte % (Auto) 0.4 % Immature Granulocyte # (Auto) 0.04 K/uL (0.00-0.02) Anion Gap 5.0 mmol/L (3-11) Est Creatinine Clear Calc Drug Dose 48.8 ml/min Estimated GFR () 74.5 Estimated GFR (Non- 64.3 BUN/Creatinine Ratio 18.5 (10-20) Calcium Level 8.9 mg/dl (8.5-10.1) Total Bilirubin 0.2 mg/dl (0.2-1) Direct Bilirubin < 0.1 mg/dl (0-0.2) Aspartate Amino Transf (AST/SGOT) 12 U/L (15-37) Alanine Aminotransferase (ALT/SGPT) 18 U/L (12-78) Alkaline Phosphatase 90 U/L (45-117) Total Creatine Kinase 84 U/L (26-192) Creatine Kinase MB 1.9 ng/ml (0.5-3.6) Creatine Kinase MB Ratio 2.3 (0-3.0) Troponin I < 0.015 ng/ml (0-0.045) Pro-B-Type Natriuretic Peptide 152 pg/ml (0-1800) Total Protein 7.7 gm/dl (6.4-8.2) Albumin 3.9 gm/dl (3.4-5.0) Thyroid Stimulating Hormone (TSH) 1.980 uIu/ml (0.300-4.500) Laboratory results per my review. Medications Administered Medications (Trade) Dose Ordered Sig/Chetan Route Start Time Stop Time Status Last Admin Dose Admin Tramadol HCl (Ultram Tab) 50 mg NOW STAT PO 04/13/17 03:44 04/13/17 03:45 DC 04/13/17 03:48 50 MG Procedure Tramadol HCl 5 mg PO ECG Indication: SOB/dyspnea, other (High blood pressure) Rate (beats per minute): 81 Rhythm: normal sinus Findings: no acute ischemic change, no ectopy Comparison ECG Date: January 03, 2017 Change: no significant change ED Course 0227: Past medical records reviewed. The patient was evaluated in room B10. A complete history and physical exam was performed. An IV lock was initiated and labs were drawn as above. A twelve-lead EKG was obtained as described above. The patient had chest x-ray as described above. 0344: Tramadol HCl 5 mg PO for her back pain 0424: Upon reevaluation, the patient is resting comfortably. I discussed findings and results with her. She verbalized agreement of the treatment plan. I had a long discussion with the patient about her increased use of tramadol. She is running out of her prescription before it is due to be refilled. The patient was discharged home. The patient is resting comfortably at this time. Her blood pressure does remain somewhat elevated. I've encouraged her to take her blood pressure meds when she arrives home. She is to contact her PCP this morning with regards to the tramadol usage. Medical Decision This is a 77 year old patient who presents to the Emergency Room with the chief complaints of high blood pressure. Differential diagnosis includes but is not limited to hypertensive emergency, medication side effects, allergic reaction, thyroid dysfunction, hypoglycemia. Her labs showed normal white count, stable H& H, normal renal function, glucose of 112, normal LFTs, negative cardiac enzymes , TSH of 1.9. I attest that I have personally reviewed the patient's current medication list. Patient was found to have normal blood pressure on screening and does not require follow-up. The patient has a history of chronic low back pain for which she is scheduled to have surgery in April. In the past couple months, her PCP has decreased her dose of tramadol to 2 tablets per day and set of 3 tablets per day. The patient continues to run out of her medications early and cannot get them refilled. I explained to her that we would not be refilling her meds here in the emergency department. [place] Drug Monitoring Program Search Results: patient reviewed within database Drug Monitoring Findings: Patient was prescribed 60 tramadol on March 19. Impression Primary Impression: HTN (hypertension) Additional Impressions: Mild tramadol abuse Low back pain Scribe Attestation The scribe's documentation has been prepared under my direction and personally reviewed by me in its entirety. I confirm that the note above accurately reflects all work, treatment, procedures, and medical decision making performed by me. Departure Information Dispostion Home / Self-Care Referrals All Lance M.D. (PCP) Forms HOME CARE DOCUMENTATION FORM, IMPORTANT VISIT INFORMATION, WORK / SCHOOL INSTRUCTIONS Patient Instructions My [facility] Q Interactive Additional Instructions You MUST only take your Tramadol as instructed. Call PCP this AM with regards to back pain and Tramadol Please have your BP rechecked today at PCP office Problem Qualifiers
[2017-04-13] MEDS ORDERED: MULT-916 PO (03:06)
[2017-04-13] MEDS ORDERED: LISI-461 PO (03:06)
[2017-04-13 03:21] LABS: ALT/SGPT 18 U/L (12-78); AST/SGOT 12 U/L (15-37); BLOOD UREA NITROGEN 16 mg/dl (7-18); BUN/CREATININE RATIO 18.5 (10-20); CALCIUM 8.9 mg/dl (8.5-10.1); CARBON DIOXIDE 31 mmol/L (21-32); CHLORIDE 107 mmol/L (98-107); CREATININE 0.86 mg/dl (0.60-1.20); GLUCOSE 112 mg/dl (70-99); POTASSIUM 3.7 mmol/L (3.5-5.1); SODIUM 143 mmol/L (136-145)
[2017-04-13 03:32] LABS: ALKALINE PHOSPHATASE 90 U/L (45-117); CKMB/CK RATIO 2.3 (0-3.0)
[2017-04-13] MEDS ORDERED: HydrALAZINE HCL 20 MG/ML VIAL IV. STA (03:36)
[2017-04-13] MEDS ORDERED: TRAMADOL HCL 50 MG TAB PO STA (03:44)
[2017-04-13 04:50] VITALS: BP 222/83; PULSE 72; O2SAT 96
--- NOTE | 2017-04-13 08:45 | DIAGNOSTIC IMAGING REPORT ---
CHEST ONE VIEW PORTABLE CLINICAL HISTORY: HTN dyspnea COMPARISON STUDY: 01/03/2017 FINDINGS: Lungs are clear. A slight chronic blunting left lateral calcific angle. No focal infiltrate. IMPRESSION: Chronic change. No acute process. Electronically signed by: Samy Bhat M.D. 04/13/2017 8:44 AM Dictated Date/Time: 04/13/2017 8:44 AM
== END 2017-04-13 05:00 | disposition home or self-care (01) ==
LOC: C.EDB 02:15
DX: I10 Essential (primary) hypertension (principal); T40.4X1A Poisoning by other synthetic narcotics, accidental (unintentional), initial encounter; M54.5 Low back pain; M19.90 Unspecified osteoarthritis, unspecified site; J44.9 Chronic obstructive pulmonary disease, unspecified; Z85.3 Personal history of malignant neoplasm of breast; F17.200 Nicotine dependence, unspecified, uncomplicated

== ENCOUNTER → 2017-11-02 | Outpatient (CLI) | payer OTHER ==
[~2017-11-02] MED LIST changes: +LISI-461 PO; +MULT-916 PO; -TRAM-10 PO
--- NOTE | 2017-11-02 12:57 | MAMMOGRAPHY REPORT ---
UNILATERAL LEFT DIGITAL DIAGNOSTIC MAMMOGRAM TOMOSYNTHESIS WITH CAD AND TARGETED LEFT ULTRASOUND: CLINICAL HISTORY: History of left breast cancer status post lumpectomy. The patient reports palpable nodularity and associated intermittent pain in the left breast for a few months. TECHNIQUE: Breast tomosynthesis in addition to standard 2D mammography was performed. Current study was also evaluated with a Computer Aided Detection (CAD) system. Left CC and MLO 2-D and tomosynthes is images were obtained. COMPARISON: Comparison is made to exams dated: 02/22/2017 mammogram, 02/18/2016 mammogram, 03/03/2015 albert mogram, 03/03/2015 stereotactic biopsy, 02/22/2015 ultrasound, and 02/22/2015 mammogram - [facility]. BREAST COMPOSITION: There are scattered areas of fibroglandular density in the left breast. FINDINGS: A square marker london the site of pain in the left upper outer quadrant, while an adjacent triangle marker london the site of the palpable lumps in the left upper outer quadrant. There are st able postsurgical changes in the left 12:00 breast, including stable density and architectural distor tion at the lumpectomy bed. A biopsy marker clip is again noted at the lumpectomy bed from prior debby reotactic biopsy. There are no suspicious masses, calcifications, or areas of architectural distorti on noted in the left breast. 2 adjacent benign lymph nodes are again seen overlying the left pectora lis muscle on the MLO view. Targeted ultrasound was performed of the area of the palpable nodularity and associated pain pointed out by the patient, in the left breast at approximately 12:00, 7 cm from the nipple. No suspicious m asses or other suspicious sonographic abnormalities are noted in this region. There is ill-defined h ypoechoic tissue and distortion in the left 12:00 breast, centered around 3 cm from the nipple, consi stent with postsurgical changes. IMPRESSION: ACR BI-RADS CATEGORY 2: BENIGN, TARGETED ULTRASOUND ACR BI-RADS CATEGORY 2: BENIGN No suspicious mammographic or sonographic abnormality at the site of palpable nodularity and intermit tent pain in the left breast pointed out by the patient. There is no mammographic or targeted sonogr aphic evidence of malignancy. Recommend clinical follow-up; any decision to biopsy should be based o n clinical grounds. Also recommend routine bilateral screening mammograms which are due February 2018. The patient has been verbally notified of the results. Approximately 10% of breast cancers are not detected with mammography. A negative mammographic report should not delay biopsy if a clinically suggestive mass is present. Amanda Amador M.D. ah/:11/02/2017 09:57:40 Client Evaluator: Trish GORDON)(Dimitry), [facility] letter sent: Normal 1/2 BI-RADS Code: ACR BI-RADS Category 2: Benign Ultrasound BI-RADS: ACR BI-RADS Category 2: Benign
== END | disposition home or self-care (01) ==
LOC: C.MAMM 09:26
PROVIDERS: ATTEND Family Medicine
DX: N64.4 Mastodynia (principal); M79.622 Pain in left upper arm

== ENCOUNTER → 2017-12-11 | Outpatient (CLI) | payer OTHER ==
--- NOTE | 2017-12-11 10:59 | DIAGNOSTIC IMAGING REPORT ---
CHEST 2 VIEWS ROUTINE HISTORY: 77 years-old Female ACUTE BRONCHITIS acute bronchitis. COMPARISON: Chest radiograph 04/13/2017, CTA chest 01/03/2017 TECHNIQUE: PA and lateral views of the chest. FINDINGS: Cardiac silhouette is upper limits of normal in size. Atherosclerosis of the aorta. No pneumothorax. Chronic blunting of the left costophrenic angle suggests scarring/atelectasis without definite pleural effusion identified. No lobar airspace consolidation to suggest pneumonia. Bones of the chest appear grossly intact. IMPRESSION: Chronic blunting of left costophrenic angle without acute process. The above report was generated using voice recognition software. It may contain grammatical, syntax or spelling errors. Electronically signed by: Rogelio Morejon M.D. 12/11/2017 10:58 AM Dictated Date/Time: 12/11/2017 10:56 AM
== END | disposition home or self-care (01) ==
LOC: C.RADPV 10:37
PROVIDERS: ATTEND Family Medicine
DX: J20.9 Acute bronchitis, unspecified (principal); R91.8 Other nonspecific abnormal finding of lung field

== ENCOUNTER → 2018-02-19 | Outpatient (CLI) | payer OTHER ==
[2018-02-19 13:20] LABS: BASO % 0.3 %; BASO ABS # 0.02 K/uL (0-0.2); EOS % 1.7 %; EOS ABS # 0.13 K/uL (0-0.5); HEMATOCRIT 39.5 % (37-47); HEMOGLOBIN 13.3 g/dL (12.0-16.0); IG# 0.03 K/uL (0.00-0.02); LYMPH % 31.7 %; LYMPH ABS # 2.38 K/uL (1.2-3.4); MEAN CELL VOLUME 83.7 fL (80-100); MEAN CORPUSCULAR HEMOGLOBIN 28.2 pg (25-34); MEAN CORPUSCULAR HGB CONC 33.7 g/dl (32-36); MEAN PLATELET VOLUME 9.7 fL (7.4-10.4); MONO % 5.9 %; MONO ABS # 0.44 K/uL (0.11-0.59); NEUT ABS # 4.51 K/uL (1.4-6.5); PLATELET COUNT 296 K/uL (130-400); RED CELL DISTRIBUTION WIDTH CV 13.7 % (11.5-14.5); RED CELL DISTRIBUTION WIDTH SD 41.7 fL (36.4-46.3); WHITE BLOOD COUNT 7.51 K/uL (4.8-10.8)
[2018-02-19 13:53] LABS: ALBUMIN 3.7 gm/dl (3.4-5.0); ALT/SGPT 19 U/L (12-78); BLOOD UREA NITROGEN 17 mg/dl (7-18); CALCIUM 8.7 mg/dl (8.5-10.1); CARBON DIOXIDE 28 mmol/L (21-32); CREATININE 0.84 mg/dl (0.60-1.20); GLUCOSE 91 mg/dl (70-99); POTASSIUM 4.3 mmol/L (3.5-5.1); SODIUM 140 mmol/L (136-145)
[2018-02-19 13:56] LABS: ALKALINE PHOSPHATASE 90 U/L (45-117); AST/SGOT 18 U/L (15-37)
== END | disposition home or self-care (01) ==
LOC: C.LABPVFM 11:34
PROVIDERS: ATTEND Nurse Practitioner
DX: I10 Essential (primary) hypertension (principal); R53.83 Other fatigue

== ENCOUNTER → 2018-02-25 | Outpatient (CLI) | payer OTHER ==
--- NOTE | 2018-02-26 07:40 | MAMMOGRAPHY REPORT ---
BILATERAL DIGITAL SCREENING MAMMOGRAM TOMOSYNTHESIS WITH CAD: 02/25/2018 CLINICAL HISTORY: Asymptomatic. Personal history of breast cancer. . TECHNIQUE: Breast tomosynthesis in addition to standard 2D mammography was performed. Current study was also evaluated with a Computer Aided Detection (CAD) system. COMPARISON: Comparison is made to exams dated: 11/02/2017 ultrasound, 11/02/2017 mammogram, 02/22/2017 mammogram, 02/18/2016 mammogram, 03/03/2015 mammogram, and 03/03/2015 stereotactic biopsy - [facility]. BREAST COMPOSITION: There are scattered areas of fibroglandular density in both breasts. FINDINGS: There is possible interval increase in size of a lymph node in the inferior right axilla v ersus axillary tail currently measuring 7.5 mm, previously measuring 4.5 mm, for which additional tar geted ultrasound and possible additional mammographic views are recommended. There is stable expected architectural distortion and skin irregularity in the 12:00 left breast, at the site of prior lumpectomy. A stable dumbbell-shaped biopsy marker clip is also seen in place. No other suspicious mass, architectural distortion or cluster of microcalcifications is seen. IMPRESSION: ACR BI-RADS CATEGORY 0: INCOMPLETE EVALUATION: NEED ADDITIONAL IMAGING EVALUATION The lymph node in the right axillary tail/inferior axillary region needs additional evaluation. The patient will be called to schedule an appointment. Approximately 10% of breast cancers are not detected with mammography. A negative mammographic report should not delay biopsy if a clinically suggestive mass is present. Leny Bridges M.D. ay/:02/25/2018 15:28:01 Final Cigar And Box Examiner: Kortney ESTES(Dustin)(Dimitry), [facility] letter sent: Addl Imaging 0 BI-RADS Code: ACR BI-RADS Category 0: Incomplete Evaluation: Need Additional Imaging Evaluation
== END | disposition home or self-care (01) ==
LOC: C.MAMM 09:24
PROVIDERS: ATTEND Family Medicine
DX: Z12.31 Encounter for screening mammogram for malignant neoplasm of breast (principal); R92.8 Other abnormal and inconclusive findings on diagnostic imaging of breast; Z85.3 Personal history of malignant neoplasm of breast; S32.10XA Unspecified fracture of sacrum, initial encounter for closed fracture; X58.XXXA Exposure to other specified factors, initial encounter; M89.9 Disorder of bone, unspecified; M85.851 Other specified disorders of bone density and structure, right thigh; M85.852 Other specified disorders of bone density and structure, left thigh

== ENCOUNTER → 2018-03-05 | Outpatient (CLI) | payer OTHER | END | disposition home or self-care (01) | LOC: C.LABPVFM 11:55 | PROVIDERS: ATTEND Nurse Practitioner | DX: R53.83 Other fatigue (principal) ==

== ENCOUNTER → 2018-03-06 | Outpatient (CLI) | payer OTHER ==
--- NOTE | 2018-03-06 15:14 | MAMMOGRAPHY REPORT ---
ULTRASOUND OF RIGHT BREAST: 03/06/2018 CLINICAL HISTORY: Callback from screening mammogram for increasing right lymph node. History of left breast cancer. COMPARISON: Comparison is made to exams dated: 02/25/2018 mammogram, 11/02/2017 ultrasound, 11/02/2017 mammogram, 02/22/2017 mammogram, 02/18/2016 mammogram, and 03/03/2015 mammogram - [facility] enter. TECHNIQUE: Real-time targeted ultrasound of the right breast was performed. FINDINGS: Real-time, high-resolution targeted ultrasound was performed of the area of the increasingl y prominent lymph node in the right upper outer quadrant posteriorly. In the right breast at 10:00, 7 cm from the nipple, there is a circumscribed hypoechoic 7 x 3 x 7 mm mass, with a faint echogenic f atty hilum and central internal vascularity. This corresponds with the increasingly prominent lymph nodes seen on the screening mammogram. Given the increased size mammographically, the lymph node is indeterminate and ultrasound-guided core needle biopsy is recommended for further evaluation, althoug h the increased prominence could be due to a reactive process. Another round circumscribed hypoechoic 4 x 4 mm mass with echogenic fatty hilum is seen within the ri ght axillary tail/lower axillary region, also consistent with a lymph node. Ultrasound was also perf ormed of the right axillary region, which shows a mildly prominent 1.7 cm right axillary lymph node w hich contains a normal fatty hilum although the cortex is mildly thickened at 4 mm. A few other smal ler right axillary lymph nodes are seen which are mildly prominent. IMPRESSION: ACR BI-RADS CATEGORY 4: SUSPICIOUS - FOLLOW-UP RECOMMENDED A circumscribed 7 mm mass is seen within the right 10:00 breast on ultrasound, which corresponds with the increasingly prominent lymph node seen mammographically. Although the increased size could be d ue to a reactive process, the lymph node is indeterminate and ultrasound-guided core needle biopsy is recommended for further evaluation, especially given the personal history of left breast cancer. A few other mildly prominent right axillary lymph nodes are also seen. A phone call was made to the physician's office to confirm faxed results were received. The patient was verbally notified of the results. She tentatively scheduled the biopsy before leaving the depart ment. Amanda Amador M.D. /:03/06/2018 14:26:06 Travel Clerk: Amanda Amador MD, [facility] letter sent: Abnormal 4/5 BI-RADS Code: ACR BI-RADS Category 4: Suspicious
== END | disposition home or self-care (01) ==
LOC: C.MAMM 12:49
PROVIDERS: ATTEND Family Medicine
DX: N63.11 Unspecified lump in the right breast, upper outer quadrant (principal)

== ENCOUNTER → 2018-03-13 | Outpatient (CLI) | payer OTHER ==
--- NOTE | 2018-03-13 10:43 | Discharge Instructions ---
Discharge Instructions Procedure Procedure Date: Mar 13, 2018. Reason for visit: Right Lymph Node. Discharge Discharge Date: Mar 13, 2018. Discharge Diagnosis: status post breast biopsy Instructions Activity Recommendations: Additional Limitations (see below) Return to School/Work: no limitations Recommended Home Diet: No Limitations Provider Instructions: ACTIVITY RECOMMENDATIONS: * No lifting, pushing, pulling or exercising the affected side for three days. RETURN TO SCHOOL/WORK: * You may return to work/school after the procedure, but do not perform any strenuous activities for 24 to 48 hours. MEDICATIONS: * Tylenol (two 325 mg) every four to six hours if needed for mild pain (if not allergic to Tylenol). DIET: * Resume previous diet. SPECIAL CARE INSTRUCTIONS: * Keep biopsy site dry for 24 hours. May shower after 24 hours, but do not soak (bathe) incision. * May remove Tegaderm (plastic patch) tomorrow AFTER showering. * Leave the steri-strips on for one week. Allow the steri-strips to fall off by themselves. If not off after one week, you may remove them. You may place a Bandaid crosswise over the strips, if desired. * Apply ice 10 minutes on and 10 minutes off as needed. * Wear a bra at bedtime to sleep more comfortably for 2-3 days. * Your referring physician should have the results after approximately 5 to 7 business days. * Call for unusual bleeding, fever, drainage, etc or if you have any questions call during normal business hours or after hours call Dr Amador, [phone]. FOLLOW UP VISIT: Follow-up with Referring Physician as scheduled. Allergies Coded Allergies: Prednisone (Verified Allergy, Intermediate, face flushed and itching on face, 04/13/17) Dexamethasone (Verified Allergy, Mild, 04/13/17) Indomethacin (Verified Allergy, Mild, 04/13/17) Morphine (Verified Allergy, Unknown, vomiting, 04/13/17) Propoxyphene (Verified Allergy, Unknown, FROM DARVOCET, 04/13/17) Replaces DARVOCET-N 10 Gabapentin (Verified Adverse Reaction, Unknown, NAUSEA, 04/13/17) Milvia Singh Recommendations: Call your doctor if: * Temperature above 101 degrees * Pain not relieved by pain medicine ordered * There is increased drainage or redness from any incision * You have any unanswered questions or concerns. Your Doctors Instructions noted above were prepared by provider Amanda Amador. Patient Signature Section: Patient Instructions Signature Page Daniela Minor Patient (or Guardian) Signature/Date: I have read and understand the instructions given to me by my caregivers. Caregiver/RN/Doctor Signature/Date: The above-named patient and/or guardian has received patient instructions on this date. + Original Patient Signature Page (only) stays with chart. Please make copy for patient.
--- NOTE | 2018-03-13 15:28 | MAMMOGRAPHY REPORT ---
ULTRASOUND GUIDED BIOPSY RIGHT BREAST: 03/13/2018 CLINICAL HISTORY: Prominent intramammary lymph node in the right 10:00 breast. PATIENT CONSENT: The procedure, risks and benefits were discussed with the patient and informed writt en consent was obtained. A timeout was performed immediately prior to the procedure. PROCEDURE DESCRIPTION: With ultrasound guidance, aseptic technique, and lidocaine as the local anesth etic (1% lidocaine to anesthetize the skin and 1% lidocaine with epinephrine to anesthetize the deepe r tissues), the lymph node of concern in the right 10:00 breast was sampled 6 times with a 14-gauge A chieve biopsy needle. Immediately thereafter, with ultrasound guidance, aseptic technique, and lidoc jorge as the local anesthetic, a metallic localizer clip was placed at the biopsy site. Direct pressur e was applied to the site immediately post procedure and hemostasis was achieved. Postprocedure unil ateral mammograms were performed to confirm placement of the clip in the expected location of the yaneth ast mass. The patient tolerated the procedure without complication. She was given wound care instru ctions. The specimens were sent to pathology fresh on a saline-soaked Telfa pad. COMPARISON: Comparison is made to exams dated: 03/06/2018 ultrasound, 02/25/2018 mammogram, 02/22/2017 ma mmogram, 02/18/2016 mammogram, 02/22/2015 mammogram, and 02/10/2015 mammogram - [facility]. IMPRESSION: ULTRASOUND GUIDED BIOPSY Ultrasound-guided core needle biopsy of the prominent intramammary lymph node in the right 10:[address], with clip placement. The patient will receive pathology results from her referring provider. Amanda Amador M.D. ah/:03/13/2018 11:47:28 Attending Technologist: Dana Doherty RT(R)(M), [facility] Resident In Diagnostic Radiology: Trish Jain RT(R)(M), [facility]
--- NOTE | 2018-03-13 15:32 | MAMMOGRAPHY REPORT ---
UNILATERAL RIGHT DIGITAL DIAGNOSTIC MAMMOGRAM TOMOSYNTHESIS: 03/13/2018 CLINICAL HISTORY: Status post right 10:00 breast biopsy. TECHNIQUE: Breast tomosynthesis in addition to standard 2D mammography was performed. Postprocedura l right CC and ML tomosynthesis images were obtained. COMPARISON: Comparison is made to exams dated: 03/06/2018 ultrasound, 02/25/2018 mammogram, 11/02/2017 ultrasound, 02/22/2017 mammogram, 02/18/2016 mammogram, and 02/10/2015 mammogram - [facility]. BREAST COMPOSITION: There are scattered areas of fibroglandular density in the right breast. FINDINGS: A new biopsy marker clip is seen at the site of the biopsied lymph node in the right 10:00 posterior breast. No significant postbiopsy hematoma is seen. IMPRESSION: POST PROCEDURE IMAGING FOR MARKER PLACEMENT New biopsy marker clip status post right breast biopsy. Pathology results are pending. Approximately 10% of breast cancers are not detected with mammography. A negative mammographic report should not delay biopsy if a clinically suggestive mass is present. Amanda Amador M.D. ah/:03/13/2018 11:49:04 Attending Technologist: Dana Doherty RT(R)(M), [facility] [employer] Material Mover: Trish Jain RT(R)(M), [facility] BI-RADS Code: Post Procedure Imaging For Marker Placement
== END | disposition home or self-care (01) ==
LOC: C.MAMM 09:42
PROVIDERS: ATTEND Family Medicine
DX: N63.10 Unspecified lump in the right breast, unspecified quadrant (principal); N62 Hypertrophy of breast

== ENCOUNTER → 2018-06-18 | Outpatient (CLI) | payer OTHER ==
[~2018-06-18] MED LIST changes: +IPRA-64 INH; -IPRASOL4 INH
--- NOTE | 2018-06-18 12:03 | DIAGNOSTIC IMAGING REPORT ---
ABDOMEN 2VIEW W/PA CHEST RTN CLINICAL HISTORY: Constipation. Possible bowel obstruction. COMPARISON STUDY: 12/11/2017 FINDINGS: The cardiac and mediastinal contours remain stable. There is no free intraperitoneal air. There is no focal pulmonary consolidation. There is stable blunting of the left lateral costophrenic angle. Right and supine views the abdomen reveal no abnormally dilated loops of large or small bowel. There are no transition zones indicate bowel obstruction. There is scattered stool within the colon. IMPRESSION: No evidence of bowel obstruction. No evidence of free air. Electronically signed by: Ole Orellana M.D. 06/18/2018 12:01 PM Dictated Date/Time: 06/18/2018 12:01 PM
== END | disposition home or self-care (01) ==
LOC: C.RADPV 11:45
PROVIDERS: ATTEND Family Medicine
DX: K59.00 Constipation, unspecified (principal)

== ENCOUNTER 2020-05-29 10:45 | Observation (INO) ==
--- OUTSIDE RECORDS SUMMARY | 2020-05-29 10:48 | External Medical Summary | Continuity of Care Document ---
:1940 Author Name Chuck Abrams, Provider Address Unavailable Unavailable , Care Team Providers Name Role Phone Unavailable Unavailable Unavailable Natalio Abrams, All Unavailable [email or web address] Sancho GARNETT, Fara Unavailable [email or web address] Michael Abrams, Lisandra Unavailable [email or web address] Tess Abrams, Jovana Unavailable [email or web address] PCP, UNKNOWN Unavailable Unavailable SAMUEL Abrams, JOE Cardona Unavailable Unavailable Josef GARNETT Unavailable [email or web address] Amanda JAIMES Unavailable Unavailable Rosa Elena SINGH Unavailable [email or web address] TESS Unavailable Unavailable Unavailable Unavailable Unavailable Problems Acute sinusitis (461.9) (J01.90) Muscular aches (729.1) (M79.10) Calcific tendonitis of left shoulder (726.11) (M75.32) Trochanteric bursitis of left hip (726.5) (M70.62) Calcific tendonitis of right shoulder (726.11) (M75.31) Calcium deposits in tendon and bursa (727.82) (M65.20) UTI (urinary tract infection) (599.0) (N39.0) Neck pain (723.1) (M54.2) Shoulder pain, right (719.41) (M25.511) Depression with anxiety (300.4) (F41.8) Osteopenia (733.90) (M85.80) Colon polyp (211.3) (K63.5) Chest wall pain (786.52) (R07.89) Shingles (053.9) (B02.9) Chronic reflux esophagitis (530.11) (K21.0) Urge and stress incontinence (788.33) (N39.46) Posterior pain of left hip (719.45) (M25.552) Urinary incontinence (788.30) (R32) COPD with exacerbation (491.21) (J44.1) Abdominal pain (789.00) (R10.9) Acute constipation (564.00) (K59.00) Sacral fracture, closed (805.6) (S32.10XA) Lytic lesion of bone on x-ray (733.90) (M89.9) Hip pain, right (719.45) (M25.551) Abnormal mammogram (793.80) (R92.8) Somatic dysfunction of rib (739.8) (M99.08) Cervical somatic dysfunction (739.1) (M99.01) Cranial somatic dysfunction (739.0) (M99.00) Rib pain on right side (786.50) (R07.81) Constipation (564.00) (K59.00) BI-RADS category 4A mammogram result Breast cancer (174.9) (C50.919) Breast calcification, left (793.89) (R92.1) Breast pain (611.71) (N64.4) Current smoker (305.1) (F17.200) 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 tract infection (519.8) (J22) Generalized osteoarthritis (715.00) (M15.9) Chronic obstructive pulmonary disease (496) (J44.9) Mass of right breast (611.72) (N63.10) Sleep disturbances (780.50) (G47.9) Diarrhea (787.91) (R19.7) Acid reflux (530.81) (K21.9) Chronic pain (338.29) (G89.29) Back pain, chronic (724.5) (M54.9) Acute bronchitis, unspecified organism (466.0) (J20.9) Hypertension (401.9) (I10) Allergies and Adverse Reactions Amoxicillin TABS (Allergy) Reaction: Dry mouth dexamethasone (Allergy) doxycycline (Allergy) Reaction: Vomiting Effexor (Adverse Event) Reaction: Dizzin ess Fentanyl-Droperidol SOLN (Allergy) Gabapentin TABS (Allergy) indomethacin (Allergy) Keppra TABS (Allergy) Reaction: Dizzines s morphine (Allergy) predniSONE TABS (Allergy) propoxyphene (Allergy) Medications Omeprazole 20 MG Oral Capsule Delayed Release; TAKE 1 CAPSULE BY MOUTH DAILY. Aliza Pulido Start: 06-Mar-2017 Quantity: 30 Refills: 5 Advair Diskus 100-50 MCG/DOSE Inhalation Aerosol Powder Breath Activated; INHALE 1 PUFF BY MOUTH TWICE DAILY. Aliza Rodriguez Start: 20-Nov-2018 Quantity: 1 60 Inhaler Pack Refills: 0 Meclizine HCl - 25 MG Oral Tablet; TAKE 1 TABLET 4 TIMES DAILY NEEDED FOR DIZZINESS. Aliza Rodriguez Start: 20-Nov-2018 Quantity: 30 Refills: 0 hydroCHLOROthiazide 25 MG Oral Tablet; TAKE 1 TABLET B Y MOUTH ONCE DAILY. Aliza Pulido Start: 30-Sep-2018 Quantity: 30 Refills: 5 Breo Ellipta 100-25 MCG/INH Inhalation A erosol Powder Breath Activated; 1 puff daily, rinse mouth afterward TAMIR Kingsley Start: 05-Mar-2018 Quantity: 1 28 Inhaler Pack Refills: 3 Vitamin D CAPS; TAKE 2000 UNITS DAILY , M.[address] art: 08-Feb-2015 Refills: 0 Ventolin HFA 108 (90 Base) MCG/ACT Inhal ation Aerosol Solution; INHALE 1 OR 2 PUFFS BY MOUTH EVERY 4 TO 6 HOURS NEEDED AND DIRECTED . Aliza Lance Start: 30-Jun-2016 Quantity: 3 18 GM Inhaler Refills: 1 Ipratropium-Albuterol 0.5-2.5 (3) MG/3ML Inhalation Solution; USE 1 UNIT DOSE IN NEBULIZER EVERY 4-6 HOURS NEEDED. Aliza Pulido Start: 5 Quantity: 1 60 x 3 ML Plas Cont Refills: 5 traMADol HCl - 50 MG Oral Tablet; TAKE O NE TABLET BY MOUTH DAILY NEEDED FOR PAIN Aliza Pulido Start: 08-Aug-2014 Quantity: 30 Refills: 0 Fluticasone Propionate 50 MCG/ACT Nasal Suspension; USE 2 SPRAYS IN EACH NOSTRIL ONCE DAILY. Aliza Pulido Start: 03-Dec-2012 Quantity: 3 16 GM Bottle Refills: 1 Azithromycin 250 MG Oral Tablet; TAKE 2 TABLETS ON DAY 1 THEN TAKE 1 TABLET A DAY FOR 4 DAYS. Aliza Pulido Start: 27-Jan-2019 Quantity: 6 Refills: 0 Magnesium Citrate 1.745 GM/30ML Oral Solution; USE DIRECTED. Aliza Pulido Start: 18-Jun-2018 Quantity: 30 Refills: 1 Calcium TABS; Take 1 tablet daily , Dimitry.DRuddy Refills: 0 Lisinopril 20 MG Oral Tablet; TAKE 1 TABLET BY MOUTH D AILY IN THE MORNING. Aliza Pulido Start: 19-Mar-2017 Quantity: 90 Refills: 1 Procedures History of Breast Surgery Lumpectomy Sta tus: Completed History of Radiation Therapy Status: Com pleted History of Bronchoscopy (Diagnostic) Sta tus: Completed History of Kidney Surgery Status: Comple norma Immunizations Pneumo On: 03-Oct-2001 Pneumo On: 18-Aug-2009 Influenza On: 29-Aug-2012 15:12 Lot #: [id number], [employer] Influenza On: 26-Aug-2013 14:36 Lot #: [id number], [employer] Influenza On: 14-Aug-2014 14:01 Lot #: [id number], [employer] Pneumo (Prevnar) On: 01-Dec-2014 15:40 Lot #: [id number], [employer] Fluzone High-Dose Intramuscular Suspension On: 16-Aug-2015 1 4:41 Lot #: [id number], [employer] Fluzone High-Dose Intramuscular Suspension On: 02-Oct-2016 1 2:10 Lot #: [id number], [employer] Fluzone High-Dose Intramuscular Suspension On: 17-Oct-2017 1 2:43 Lot #: [id number], [employer] Family History Mother Family history of malignant neoplasm of cervix (V16.49) (Z80 .49) Status: Active Social History - Smoking Status Smoker Plan of Treatment Planned Observations Planned Goals not documented Results No Known Results Results not documented Encounters Appointment; Jovana Pulido M.D. 04-Feb-2019 11:45 Encounter Diagnosis: Problem not documented Appointment; Jovana Pulido M.D. 27-Jan-2019 13:30 Encounter Diagnosis: Problem not documented Appointment; Meir Provider 25-Jan-2019 11:30 Encounter Diagnosis: Problem not documented Appointment; Lisandra Rodriguez M.D. 20-Nov-2018 10:45 Encounter Diagnosis: Problem not documented Appointment; Jovana Pulido M.D. 14-Oct-2018 10:00 Encounter Diagnosis: Problem not documented Appointment; Lisandra Rodriguez M.D. 24-Sep-2018 15:15 Encounter Diagnosis: Problem not documented Appointment; Jovana Pulido M.D. 18-Jun-2018 11:00 Encounter Diagnosis: Problem not documented
--- OUTSIDE RECORDS SUMMARY | 2020-05-29 10:49 | External Medical Summary | Continuity of Care Document ---
:1940 Author Name Chuck Abrams, Provider Address Unavailable Unavailable , Care Team Providers Name Role Phone Unavailable Unavailable Unavailable Natalio Abrams, All Unavailable [email or web address] Fara Thornton Unavailable [email or web address] Michael Abrams, Lisandra Unavailable [email or web address] Tess Abrams, Jovana Unavailable [email or web address] PCP, UNKNOWN Unavailable Unavailable SAMUEL Abrams, JOE Cardona Unavailable Unavailable Josef GARNETT Unavailable [email or web address] Amanda JAIMES Unavailable Unavailable Rosa Elena SINGH Unavailable [email or web address] TESS Unavailable Unavailable Unavailable Unavailable Unavailable Problems Depression with anxiety (300.4) (F41.8) Calcific tendonitis of left shoulder (726.11) (M75.32) Muscular aches (729.1) (M79.10) Neck pain (723.1) (M54.2) Acute constipation (564.00) (K59.00) UTI (urinary tract infection) (599.0) (N39.0) Calcium deposits in tendon and bursa (727.82) (M65.20) Calcific tendonitis of right shoulder (726.11) (M75.31) Urinary incontinence (788.30) (R32) Trochanteric bursitis of left hip (726.5) (M70.62) Posterior pain of left hip (719.45) (M25.552) Urge and stress incontinence (788.33) (N39.46) Abdominal pain (789.00) (R10.9) Chronic reflux esophagitis (530.11) (K21.0) Shingles (053.9) (B02.9) Chest wall pain (786.52) (R07.89) Shoulder pain, right (719.41) (M25.511) 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) ( B02.29) Colon polyp (211.3) (K63.5) Osteopenia (733.90) (M85.80) Rib pain on right side (786.50) (R07.81) Cranial somatic dysfunction (739.0) (M99.00) Cervical somatic dysfunction (739.1) (M99.01) Somatic dysfunction of rib (739.8) (M99.08) COPD with exacerbation (491.21) (J44.1) Current smoker (305.1) (F17.200) Breast pain (611.71) (N64.4) Breast calcification, left (793.89) (R92.1) Breast cancer (174.9) (C50.919) Abnormal mammogram (793.80) (R92.8) Flu-like symptoms (780.99) (R68.89) Acid reflux (530.81) (K21.9) Diarrhea (787.91) (R19.7) Sleep disturbances (780.50) (G47.9) Hip pain, right (719.45) (M25.551) Lytic lesion of bone on x-ray (733.90) (M89.9) Sacral fracture, closed (805.6) (S32.10XA) Acute bronchitis, unspecified organism (466.0) (J20.9) COPD with acute bronchitis (491.22) (J44.0) Fatigue (780.79) (R53.83) Mass of right breast (611.72) (N63.10) BI-RADS category 4A mammogram result Chronic obstructive pulmonary disease (496) (J44.9) Generalized osteoarthritis (715.00) (M15.9) Constipation (564.00) (K59.00) Lower resp. tract infection (519.8) (J22) Back pain, chronic (724.5) (M54.9) Chronic obstructive pulmonary disease (496) (J44.9) Vitamin D deficiency (268.9) (E55.9) Sciatica (724.3) (M54.30) Chest pain (786.50) (R07.9) Shortness of breath (786.05) (R06.02) Nausea and vomiting (787.01) (R11.2) Dizziness, nonspecific (780.4) (R42) Pneumonia (486) (J18.9) Polyarthralgia (719.49) (M25.50) Neuropathic pain, leg (355.8) (M79.2) Acute sinusitis (461.9) (J01.90) Hypertension (401.9) (I10) Chronic pain (338.29) (G89.29) Allergies and Adverse Reactions Amoxicillin TABS (Allergy) Reaction: Dry mouth dexamethasone (Allergy) doxycycline (Allergy) Reaction: Vomiting Effexor (Adverse Event) Reaction: Dizzin ess Fentanyl-Droperidol SOLN (Allergy) Gabapentin TABS (Allergy) indomethacin (Allergy) Keppra TABS (Allergy) Reaction: Dizzines s morphine (Allergy) predniSONE TABS (Allergy) propoxyphene (Allergy) Medications Fluticasone Propionate 50 MCG/ACT Nasal Suspension; USE 2 SPRAYS IN EACH NOSTRIL ONCE DAILY. Aliza Pulido Start: 03-Dec-2012 Quantity: 3 16 GM Bottle Refills: 1 traMADol HCl - 50 MG Oral Tablet; TAKE O NE TABLET BY MOUTH DAILY NEEDED FOR PAIN Aliza Pulido Start: 08-Aug-2014 Quantity: 30 Refills: 0 Vitamin D CAPS; TAKE 2000 UNITS DAILY , Dimitry.DRuddy St art: 08-Feb-2015 Refills: 0 Ipratropium-Albuterol 0.5-2.5 (3) MG/3ML Inhalation Solution; USE 1 UNIT DOSE IN NEBULIZER EVERY 4-6 HOURS NEEDED. Aliza Pulido Start: 5 Quantity: 1 60 x 3 ML Plas Cont Refills: 5 Ventolin HFA 108 (90 Base) MCG/ACT Inhal ation Aerosol Solution; INHALE 1 OR 2 PUFFS BY MOUTH EVERY 4 TO 6 HOURS NEEDED AND DIRECTED . Aliza Lance Start: 30-Jun-2016 Quantity: 3 18 GM Inhaler Refills: 1 Calcium TABS; Take 1 tablet daily , M.D. Refills: 0 Omeprazole 20 MG Oral Capsule Delayed Release; TAKE 1 CAPSULE BY MOUTH DAILY. Aliza Pulido Start: 06-Mar-2017 Quantity: 30 Refills: 5 Breo Ellipta 100-25 MCG/INH Inhalation A erosol Powder Breath Activated; 1 puff daily, rinse mouth afterward TAMIR Kingsley Start: 05-Mar-2018 Quantity: 1 28 Inhaler Pack Refills: 3 Magnesium Citrate 1.745 GM/30ML Oral Solution; USE DIRECTED. Aliza Pulido Start: 18-Jun-2018 Quantity: 30 Refills: 1 hydroCHLOROthiazide 25 MG Oral Tablet; TAKE 1 TABLET B Y MOUTH ONCE DAILY. Aliza Pulido Start: 30-Sep-2018 Quantity: 30 Refills: 5 Advair Diskus 100-50 MCG/DOSE Inhalation Aerosol Powder Breath Activated; INHALE 1 PUFF BY MOUTH TWICE DAILY. Aliza Rodriguez Start: 20-Nov-2018 Quantity: 1 60 Inhaler Pack Refills: 0 Meclizine HCl - 25 MG Oral Tablet; TAKE 1 TABLET 4 TIMES DAILY NEEDED FOR DIZZINESS. Aliza Rodrigeuz Start: 20-Nov-2018 Quantity: 30 Refills: 0 Azithromycin 250 MG Oral Tablet; TAKE 2 TABLETS ON DAY 1 THEN TAKE 1 TABLET A DAY FOR 4 DAYS. Aliza Pulido Start: 27-Jan-2019 Quantity: 6 Refills: 0 Lisinopril 20 MG Oral Tablet; [...] 18-Aug-2009 Influenza On: 29-Aug-2012 15:12 Lot #: [id number], [employer] Influenza On: 26-Aug-2013 14:36 Lot #: [id number], [employer] Influenza On: 14-Aug-2014 14:01 Lot #: [id number], [employer] Pneumo (Prevnar) On: 01-Dec-2014 15:40 Lot #: [id number] Fluzone High-Dose Intramuscular Suspension On: 16-Aug-2015 1 4:41 Lot #: [id number], [employer] Fluzone High-Dose Intramuscular Suspension On: 02-Oct-2016 1 2:10 Lot #: [id number], [employer] Fluzone High-Dose Intramuscular Suspension On: 17-Oct-2017 1 2:43 Lot #: [id number], [employer] Family History Mother Family history [...]
[2020-05-29] MEDS ORDERED: SODIUM CHLORIDE 0.9% 1000ML 1,000 ML IV SCH (12:00)
--- NOTE | 2020-05-29 12:42 | XRay Report ---
SINGLE VIEW CHEST CLINICAL HISTORY: Syncope. FINDINGS: An AP, portable, upright chest radiograph is compared to study dated 11/20/2018. The examinat ion is degraded by portable technique and patient rotation. The cardiomediastinal silhouette is unr emarkable noting atherosclerotic calcification of the thoracic aorta. Chronic interstitial thickening is similar to previous. Mild atelectasis is noted at the left lung base. The lungs and pleural space s are otherwise clear. No pneumothorax is seen. The skeletal structures are osteopenic. The bony thor ax is grossly intact. Calcific tendinopathy is noted in the left shoulder. IMPRESSION: No active disease in the chest. ACT 112: Negative or not required by law. Electronically signed by: Kyle Land M.D. 05/29/2020 12:41 PM
[2020-05-29 13:05] LABS: Basophils # (auto) 0.02 K/uL (0-0.2); Basophils % (auto) 0.2 %; Eosinophils # (auto) 0.05 K/uL (0-0.5); Eosinophils % (auto) 0.4 %; Hematocrit (blood only) 39.4 % (37-47); Hemoglobin 13.8 g/dL (12.0-16.0); Immature Granulocytes # (auto) 0.04 K/uL (0.00-0.02); Immature Granulocytes % (auto) 0.4 %; Lymphocytes # (auto) 2.51 K/uL (1.2-3.4); Lymphocytes % (auto) 22.3 %; Mean Corpuscular Hemoglobin 29.2 pg (25-34); Mean Corpuscular Volume 83.3 fL (80-100); Mean Platelet Volume 9.9 fL (7.4-10.4); Monocytes # (auto) 0.46 K/uL (0.11-0.59); Monocytes % (auto) 4.1 %; Neutrophils # (auto) 8.16 K/uL (1.4-6.5); Neutrophils % (auto) 72.6 %; Platelet Count 286 K/uL (130-400); RDW Coefficient of Variation 12.9 % (11.5-14.5); RDW Standard Deviation 38.9 fL (36.4-46.3); Red Blood Count 4.73 M/uL (4.2-5.4); White Blood Count 11.24 K/uL (4.8-10.8)
[2020-05-29 13:22] LABS: Alanine Aminotransferase 17 U/L (12-78); Albumin Level 3.9 gm/dl (3.4-5.0); Aspartate Aminotransferase 17 U/L (15-37); BUN Creatinine Ratio 19.1 (10-20); Blood Urea Nitrogen 17 mg/dl (7-18); Carbon Dioxide 26 mmol/L (21-32); Chloride 108 mmol/L (98-107); Creatinine Clr Calc Pharmacy 43.4 ml/min; Est GFR (African American) 70.9; Est GFR (Non-African American) 61.2; Glucose 102 mg/dl (70-99); Sodium 141 mmol/L (136-145)
--- NOTE | 2020-05-29 13:26 | Emergency Department Note ---
History of Present Illness General Chief complaint: Shortness of Breath/Dyspnea Stated complaint: BREATHING ISSUES - PASSED OUT Time Seen by Provider: 05/29/20 11:33 Source: patient Mode of arrival: ambulatory Limitations: no limitations History of Present Illness This patient comes in after having a syncopal episode. She is being treated for sinusitis. She saw in [place] yesterday restarted on antibiotic, apparently doxycycline. She has had a stuffy nose and postnasal drip and mild sore throat. She has had associated mild headache with it which feels like a band she does tend to get sinusitis. No fever chills. no known exposure to COVID. This morning she went to the bathroom she felt like she was dizzy she sat down on the commode and passed out. There was no injury. She did not fall off the toilet. No chest pain or palpitations. She is had some pain in her right posterior chest is been going on for months nothing different today. No rash. No nausea vomiting or diarrhea. No known COVID exposure. No cough or flulike symptoms. No sick contacts. Home Medications Home Medications Medication Instructions Recorded Confirmed Type albuterol sulfate 2 puff INHALATION Q6H PRN 08/16/18 05/29/20 History calcium carbonate-vitamin D3 1 tab PO QAM 08/16/18 05/29/20 History fluticasone propionate [Flonase 2 spray INTRANASAL BID 08/16/18 05/29/20 History Allergy Relief] multivitamin 1 tab PO QAM 08/16/18 05/29/20 History omeprazole 20 mg PO DAILY PRN 08/16/18 05/29/20 History cholecalciferol (vitamin D3) 1,000 mg PO DAILY 02/04/19 05/29/20 History [Vitamin D3] fluticasone propion-salmeterol 1 puff INHALATION BID 02/04/19 05/29/20 History [Advair Diskus] amlodipine 5 mg PO DAILY 05/29/20 05/29/20 History doxycycline hyclate 100 mg PO BID 05/29/20 05/29/20 History mirabegron [Myrbetriq] 30 mg PO DAILY 05/29/20 05/29/20 History tramadol 50 mg PO BID 05/29/20 05/29/20 History Allergies Allergy/AdvReac Type Severity Reaction Status Date / Time prednisone Allergy Intermediate face Verified 05/29/20 11:22 flushed and itching on face dexamethasone Allergy Mild FACE Verified 05/29/20 11:22 FLUSHING indomethacin Allergy Mild FACE Verified 05/29/20 11:22 FLUSHING propoxyphene Allergy Unknown FROM Verified 05/29/20 11:22 DARVOCET-ITCHING gabapentin AdvReac Unknown NAUSEA Verified 05/29/20 11:22 morphine AdvReac Unknown vomiting,AG Verified 05/29/20 11:22 GRESSIVE Past Med/Surg History Medical History Abdominal pain (Acute) Abdominal pain, left lower quadrant (Acute) Arthritis (Chronic) Back pain (Chronic) Back pain (Acute) Back pain (Acute) Breast cancer (Resolved) Cancer L SIDE X 2 Chronic back pain Chronic low back pain (Acute) Chronic obstructive pulmonary disease Coccyx contusion (Acute) COPD (chronic obstructive pulmonary disease) (Chronic) HTN (hypertension) (Chronic) Hypertension (Chronic) Hypertension (Acute) Hypertension Medical non-compliance (Acute) Osteoarthritis Sacral fracture (Acute) UTI (urinary tract infection) (Acute) Surgical History H/O chest tube placement DRAINAGE LUNG-MANY YRS AGO H/O oophorectomy History of back surgery (Resolved) History of cataract surgery R/L History of discectomy LUMBAR/CYST REMOVAL History of hysterectomy 1 OVARY History of lumpectomy of left breast 2002 AND 2007- L ARM RESTRICTION Hx of ureter repair RIGHT -1969' Family History Other Family history non-contributory Social History Preferred Language: Iraqi Communication Ability: Effective Scissors Sharpener Required: No Beliefs That Will Affect Care: None Current Living Situation: Significant Other Feels Safe at Home: Yes Smoking Status: Current every day smoker Tobacco Type: cigarettes ; Second Hand Exposure: No ; Hx Alcohol Use: No Hx Substance Use: No Review of Systems A total of 10 systems reviewed and were otherwise negative Physical Exam Vital Signs Vital Signs - 24 hr 05/29/20 10:50 05/29/20 12:29 05/29/20 12:32 Temperature 37.0 C Temperature Source Oral Pulse Rate 76 75 81 Respiratory Rate 20 21 20 Respiratory Effort / Characteristics Non-Labored Respiratory Depth Normal Respiratory Pattern Regular Blood Pressure 177/75 H 155/94 H Blood Pressure Mean 109 104 Blood Pressure Position Sitting Pulse Oximetry 97 Oxygen Delivery Method Room Air Sepsis Recent Fever Within 48 Hours No Sepsis Action Taken by Nursing No Action Required 05/29/20 12:47 05/29/20 13:00 05/29/20 13:30 Temperature Temperature Source Pulse Rate 80 84 Respiratory Rate 21 17 Respiratory Effort / Characteristics Respiratory Depth Respiratory Pattern Blood Pressure 153/81 H 178/100 H Blood Pressure Mean 96 126 Blood Pressure Position Pulse Oximetry Oxygen Delivery Method Room Air Sepsis Recent Fever Within 48 Hours Sepsis Action Taken by Nursing 05/29/20 13:31 Temperature Temperature Source Pulse Rate 85 Respiratory Rate 22 Respiratory Effort / Characteristics Respiratory Depth Respiratory Pattern Blood Pressure Blood Pressure Mean Blood Pressure Position Pulse Oximetry Oxygen Delivery Method Sepsis Recent Fever Within 48 Hours Sepsis Action Taken by Nursing General: Well developed well nourished older female. In no acute distress, breathing comfortably on room air. Normal speech HEENT: Normal cephalic atraumatic. Pupils are equal round and reactive to light. Extraocular movements are intact. Oropharynx is pink with moist mucous membranes. No swelling of the mouth lips or tongue. Sinuses are mildly tender to palpation. Neck: Supple with a midline trachea. No meningeal signs or stiffness, no JVD or bruits. No Stridor. Chest: Clear to auscultation bilaterally. No wheezes or rhonchi. No increased work of breathing. Heart: Regular rate and rhythm without murmurs or gallops. Abdomen: Soft nontender, nondistended without rebound guarding or rigidity. Extremities: No cyanosis clubbing or edema. No calf tenderness or assymetry Spine/Back. Non tender to palpation. No CVA tenderness Skin: Good turgor without rashes. Neurologic exam: Cranial nerves two through 12 are intact. Motor and sensation are intact and symmetrical throughout. Course Administered Medications Discontinued Medications Sodium Chloride (Nss 1000ml) 1,000 mls @ 999 mls/hr IV .Q1H1M MONSTER Stop: 05/29/20 13:00 Last Infusion: 05/29/20 14:23 Dose: 0 mls/hr Documented by: [id number] Admin: 05/29/20 12:49 Dose: 999 mls/hr Documented by: [id number] Tramadol HCl (Ultram) 50 mg PO NOW STA Stop: 05/29/20 13:34 Last Admin: 05/29/20 14:23 Dose: 50 mg Documented by: [id number] Medical Decision Making Differential Diagnosis Sinusitis, cardiac disease, syncope, electrolyte or metabolic abnormality, sepsis, intracranial process Medical Records Attestation: I reviewed the patient's medical records. Home Medications Current Medication List: was personally reviewed by me Laboratory Data Attestation: I reviewed the patient's lab results. Result diagrams: 05/29/20 12:31 05/29/20 12:31 Lab Results 05/29/20 05/29/20 05/29/20 Range/Units 12:31 12:31 13:06 WBC 11.24 H (4.8-10.8) K/uL RBC 4.73 (4.2-5.4) M/uL Hgb 13.8 (12.0-16.0) g/dL Hct 39.4 (37-47) % MCV 83.3 (80-100) fL MCH 29.2 (25-34) pg MCHC 35.0 (32-36) g/dL RDW Std Deviation 38.9 (36.4-46.3) fL RDW Coeff of Arthur 12.9 (11.5-14.5) % Plt Count 286 (130-400) K/uL MPV 9.9 (7.4-10.4) fL Immature Gran % (Auto) 0.4 % Neut % (Auto) 72.6 % Lymph % (Auto) 22.3 % Wayne % (Auto) 4.1 % Eos % (Auto) 0.4 % Baso % (Auto) 0.2 % Neut # (Auto) 8.16 H (1.4-6.5) K/uL Lymph # (Auto) 2.51 (1.2-3.4) K/uL Wayne # (Auto) 0.46 (0.11-0.59) K/uL Eos # (Auto) 0.05 (0-0.5) K/uL Baso # (Auto) 0.02 (0-0.2) K/uL Immature Gran # (Auto) 0.04 H (0.00-0.02) K/uL Sodium 141 (136-145) mmol/L Potassium 4.0 (3.5-5.1) mmol/L Chloride 108 H (98-107) mmol/L Carbon Dioxide 26 (21-32) mmol/L Anion Gap 7.0 (3-11) BUN 17 (7-18) mg/dl Creatinine 0.88 (0.6-1.2) mg/dl Est Cr Clr Drug Dosing 43.4 ml/min Est GFR ( Amer) 70.9 Est GFR (Non-Af Amer) 61.2 BUN/Creatinine Ratio 19.1 (10-20) Glucose 102 H (70-99) mg/dl Calcium 9.0 (8.5-10.1) mg/dl Magnesium 2.0 (1.8-2.4) mg/dl Total Bilirubin 0.5 (0.2-1) mg/dl AST 17 (15-37) U/L ALT 17 (12-78) U/L Alkaline Phosphatase 109 (45-117) U/L Troponin I < 0.015 (0-0.045) ng/ml Total Protein 8.0 (6.4-8.2) gm/dl Albumin 3.9 (3.4-5.0) gm/dl Globulin 4.1 H (2.5-4.0) gm/dl Albumin/Globulin Ratio 1.0 (0.9-2) TSH 1.160 (0.300-4.500) uIu/ml Urine Color Yellow Urine Appearance Clear (Clear) Urine pH 6.5 (4.5-7.5) Ur Specific Noble 1.005 (1.000-1.030) Urine Protein Negative (Negative) Urine Glucose (UA) Negative (Negative) Urine Ketones Negative (Negative) Urine Blood Negative (Negative) Urine Nitrite Negative (Negative) Urine Bilirubin Negative (Negative) Urine Urobilinogen Negative (Negative) Ur Leukocyte Esterase Negative (Negative) Imaging Data Attestation: I personally reviewed and interpreted this imaging study as fol lows: Radiologist's Impression: CT SCAN OF THE BRAIN WITHOUT IV CONTRAST CLINICAL HISTORY: Headache. Syncope. COMPARISON STUDY: No priors. TECHNIQUE: Unenhanced axial CT scan of the brain is performed from the vertex to the skull base. A dose lowering technique was utilized adhering to the principles of ALARA. CT DOSE: 638.56 mGycm FINDINGS: Brain parenchyma: There are age-related involutional changes noting minimal subcortical and periventricular microangiopathic change. There is no hemorrhage, mass effect, or evidence of acute territorial ischemia by CT criteria. Zamudio- white matter differentiation is preserved. No extra-axial fluid collection is s een. Ventricles, sulci, cisterns: Prominent secondary to involutional change. Intracranial vasculature: There is atherosclerotic calcification of the cavernous carotid arteries. Calvarium: Unremarkable. Sinuses and mastoids: The visualized paranasal sinuses are clear. The mastoid air cells are well pneumatized. Orbits: The bony orbits are grossly intact. There are bilateral ocular lens implants. IMPRESSION: There is no hemorrhage, mass effect, or evidence of acute territorial ischemia by CT criteria. SINGLE VIEW CHEST CLINICAL HISTORY: Syncope. FINDINGS: An AP, portable, upright chest radiograph is compared to study dated 11/20/2018. The examination is degraded by portable technique and patient rotation. The cardiomediastinal silhouette is unremarkable noting atherosclerotic calcification of the thoracic aorta. Chronic interstitial thickening is similar to previous. Mild atelectasis is noted at the left lung base. The lungs and pleural spaces are otherwise clear. No pneumothorax is seen. The skeletal structures are osteopenic. The bony thorax is grossly intact. Calcific tendinopathy is noted in the left shoulder. IMPRESSION: No active disease in the chest. ECG Data Attestation: I personally reviewed and interpreted this ECG as follows: Indication: + syncope Rate (beats per minute): 71 Rhythm: + normal sinus ECG Intervals/blocks: + Normal QRS, + Normal QT and + Normal FL ECG [place]: + Normal ECG Findings: no PACs and no PVCs Comparison ECG Date: from (04/13/17) Change: no significant change Blood Pressure Blood Pressure Findings: Elevated blood pressure Blood Pressure Disposition: elevated BP felt to be situational MDM Narrative This patient comes in after having a syncopal episode she was treated for s inusitis yesterday. she looks well on my exam has a normal neurologic exam. She has had no chest pain or shortness of breath. IV access established and she was hydrated with IV normal saline she had extensive work-up done which included blood test EKG chest x-ray and head CT. She was reassessed frequently. She has no fever to suggest infection her white count is mildly elevated. She has no acute electrolyte or metabolic abnormalities. EKG does not suggest acute coronary syndrome or any significant arrhythmia. Troponin is not elevated. CAT scan of her head is unremarkable. She has no white count or fever to suggest infection. X-ray is unremarkable and does not suggest congestive heart failure pneumonia or pneumothorax. She received IV fluids and she also received tramadol which she normally she has for back and leg pain. She was COVID tested and it is pending. Given the fact that she had a syncopal episode I do think she would benefit from observation I have consulted Dr. Pino to see her Continuous cardiac monitoring: Order was placed for continuous cardiac monito ring. The patient was noted to be in normal sinus rhythm with a rate of 80. Impression & Plan Syncope, URI (upper respiratory infection), Nasal congestion, Encounter for laboratory testing for COVID-19 virus Discharge Plan Visit Data Chief Complaint: Shortness of Breath/Dyspnea Stated Complaint: BREATHING ISSUES - PASSED OUT ED Provider: Judah Reynolds Discharge Problem: Syncope, URI (upper respiratory infection), Nasal congestion, Encounter for laboratory testing for COVID-19 virus Forms Stand Alone Forms: My [facility] Prescriptions Prescriptions: No Action albuterol sulfate 90 mcg/actuation Hfa Aerosol Inhaler 2 puff INHALATION Q6H PRN (Reason: Wheezing) RF: 0 fluticasone propionate [Flonase Allergy Relief] 50 mcg/actuation [place],Suspension 2 spray INTRANASAL BID RF: 0 calcium carbonate-vitamin D3 500 mg(1,250mg) -200 unit Tablet 1 tab PO QAM RF: 0 multivitamin Tablet 1 tab PO QAM RF: 0 omeprazole 20 mg Tablet,Delayed Release (Dr/Ec) 20 mg PO DAILY PRN (Reason: Acid Reflux) RF: 0 fluticasone propion-salmeterol [Advair Diskus] 100-50 mcg/dose blister with device 1 puff Inhalation BID RF: 0 cholecalciferol (vitamin D3) [Vitamin D3] 1,000 unit Tablet,Chewable 1,000 mg PO DAILY RF: 0 doxycycline hyclate 100 mg capsule 100 mg PO BID RF: 0 amlodipine 5 mg tablet 5 mg PO DAILY RF: 0 Myrbetriq 25 mg tablet extended release 24 hr 30 mg PO DAILY RF: 0 tramadol 50 mg tablet 50 mg PO BID RF: 0 Discharge Problem: Syncope Qualifiers: Syncope type: unspecified Qualified Code(s): R55 - Syncope and collapse URI (upper respiratory infection) Qualifiers: URI type: unspecified URI Qualified Code(s): J06.9 - Acute upper respiratory infection, unspecified
--- NOTE | 2020-05-29 13:27 | CT Scan Report ---
CT SCAN OF THE BRAIN WITHOUT IV CONTRAST CLINICAL HISTORY: Headache. Syncope. COMPARISON STUDY: No priors. TECHNIQUE: Unenhanced axial CT scan of the brain is performed from the vertex to the skull base. A do se lowering technique was utilized adhering to the principles of ALARA. CT DOSE: 638.56 mGycm FINDINGS: Brain parenchyma: There are age-related involutional changes noting minimal subcortical and perivent ricular microangiopathic change. There is no hemorrhage, mass effect, or evidence of acute territoria l ischemia by CT criteria. Zamudio-white matter differentiation is preserved. No extra-axial fluid colle ction is seen. Ventricles, sulci, cisterns: Prominent secondary to involutional change. Intracranial vasculature: There is atherosclerotic calcification of the cavernous carotid arteries. Calvarium: Unremarkable. Sinuses and mastoids: The visualized paranasal sinuses are clear. The mastoid air cells are well pneu matized. Orbits: The bony orbits are grossly intact. There are bilateral ocular lens implants. IMPRESSION: There is no hemorrhage, mass effect, or evidence of acute territorial ischemia by CT kyra brenner. ACT 112: Negative or not required by law. Electronically signed by: Kyle Land M.D. 05/29/2020 1:26 PM
[2020-05-29 13:33] LABS: Alkaline Phosphatase 109 U/L (45-117); Bilirubin,Total 0.5 mg/dl (0.2-1); Globulin 4.1 gm/dl (2.5-4.0); Troponin I < 0.015 ng/ml (0-0.045)
[2020-05-29] MEDS ORDERED: TRAMADOL HCL 50 MG TABLET PO STA (13:33)
[2020-05-29 14:50] LABS: Appearance Urine Clear (Clear); Bilirubin Urine Negative (Negative); Blood Urine Negative (Negative); Color Urine Yellow; Glucose Urine UA Negative (Negative); Ketones Urine Negative (Negative); Leukocyte Esterase Urine Negative (Negative); Nitrite Urine Negative (Negative); Protein Urine Negative (Negative); Specific Gravity Urine 1.005 (1.000-1.030); Urobilinogen Urine Negative (Negative); pH Urine 6.5 (4.5-7.5)
--- NOTE | 2020-05-29 15:41 | Emergency Department Note ---
ED Visit Note Patient was seen by Dr. Reynolds, please refer to his note. The charge nurse contacted me as the patient had not changed her mind and wanted to go home after being seen by the hospitalist. I did call and discuss with the patient Dr. Reynolds's additional concerns for her. Patient states she is concerned about her syncopal event earlier as well as this is never happened and would like to be admitted. She states that she had become frustrated with waiting to be notified of this and placed in a room because her and their dog were waiting in the parking lot. I did discuss with the patient that she could call and continue to update the . That he was not allowed to come in due to a visitor restrictions especially in light of her pending COVID test. She verbalized understanding of this. The hospitalist was again notified of her willingness for additional inpatient evaluation. . : Syncope Qualifiers: Syncope type: unspecified Qualified Code(s): R55 - Syncope and collapse URI (upper respiratory infection) Qualifiers: URI type: unspecified URI Qualified Code(s): J06.9 - Acute upper respiratory infection, unspecified
--- NOTE | 2020-05-29 18:42 | History & Physical Report ---
Date of Service May 29, 2020 Assessment & Plan (1) Syncope: Patient presents to the emergency department after a syncopal episode on the commode. Upon questioning, she does not remember if she moved her bowels or passed urine. She did not fall forward or hit the floor. She reports that she was just leaning forward. Because she has had no previous occurrence of this, she decided come to emergency department for assessment. CT head was negative. Metabolic work-up was negative for any acute illness. Suspect her issue is related to transient episode of hypoglycemia, as she had not eaten breakfast, and took a doxycycline pill for the first time for a question of sinusitis. She was admitted to telemetry unit for cardiac rule out. Present on Admission?: Yes (2) COPD (chronic obstructive pulmonary disease): Continue usual inhalers, Advair Diskus, albuterol sulfate as needed. Present on Admission?: Yes (3) Hypertension: Continue amlodipine 5 mg daily with hold parameters. Present on Admission?: Yes (4) Chronic low back pain: She reports that her tramadol had recently been discontinued by her PCP. She did receive tramadol in emergency department, reports her low back pain is improved. Present on Admission?: Yes History of Present Illness Chief Complaint: The patient presents to the emergency department after a brief syncopal episode while she was on the toilet. Primary Care Provider: NO PCP Patient is a 80-year-old female with a past medical history including breast cancer, COPD, hypertension, sacral fracture, chronic low back pain and UTI. She reports that she had not eaten breakfast this morning, and started to take a doxycycline pill for the first time on empty stomach. She then went to the restroom, sat on the commode, and passed out for a brief interval time. She did not injure herself in any way as far as head trauma, but but because this was a first event she decided come to the ED for assessment. While in the ED, the ED physician sent off a COVID specimen, and she would therefore be admitted to a negative pressure room. Allergies Allergy/AdvReac Type Severity Reaction Status Date / Time prednisone Allergy Intermediate face Verified 05/29/20 11:22 flushed and itching on face dexamethasone Allergy Mild FACE Verified 05/29/20 11:22 FLUSHING indomethacin Allergy Mild FACE Verified 05/29/20 11:22 FLUSHING propoxyphene Allergy Unknown FROM Verified 05/29/20 11:22 DARVOCET-ITCHING gabapentin AdvReac Unknown NAUSEA Verified 05/29/20 11:22 morphine AdvReac Unknown vomiting,AG Verified 05/29/20 11:22 GRESSIVE Home Medications Home Medications Medication Instructions Recorded Confirmed Type albuterol sulfate 2 puff INHALATION Q6H PRN 08/16/18 05/29/20 History calcium carbonate-vitamin D3 1 tab PO QAM 08/16/18 05/29/20 History fluticasone propionate [Flonase 2 spray INTRANASAL BID 08/16/18 05/29/20 History Allergy Relief] multivitamin 1 tab PO QAM 08/16/18 05/29/20 History omeprazole 20 mg PO DAILY PRN 08/16/18 05/29/20 History cholecalciferol (vitamin D3) 1,000 mg PO DAILY 02/04/19 05/29/20 History [Vitamin D3] fluticasone propion-salmeterol 1 puff INHALATION BID 02/04/19 05/29/20 History [Advair Diskus] amlodipine 5 mg PO DAILY 05/29/20 05/29/20 History doxycycline hyclate 100 mg PO BID 05/29/20 05/29/20 History mirabegron [Myrbetriq] 30 mg PO DAILY 05/29/20 05/29/20 History tramadol 50 mg PO BID 05/29/20 05/29/20 History Past Med/Surg History Medical History Abdominal pain (Acute) Abdominal pain, left lower quadrant (Acute) Arthritis (Chronic) Back pain (Chronic) Back pain (Acute) Back pain (Acute) Breast cancer (Resolved) Cancer L SIDE X 2 Chronic back pain Chronic low back pain (Acute) Chronic obstructive pulmonary disease Coccyx contusion (Acute) COPD (chronic obstructive pulmonary disease) (Chronic) HTN (hypertension) (Chronic) Hypertension (Chronic) Hypertension (Acute) Hypertension Medical non-compliance (Acute) Osteoarthritis Sacral fracture (Acute) UTI (urinary tract infection) (Acute) Surgical History H/O chest tube placement DRAINAGE LUNG-MANY YRS AGO H/O oophorectomy History of back surgery (Resolved) History of cataract surgery R/L History of discectomy LUMBAR/CYST REMOVAL History of hysterectomy 1 OVARY History of lumpectomy of left breast 2002 AND 2007- L ARM RESTRICTION Hx of ureter repair RIGHT -1969'S Family History Other Family history non-contributory Social History Preferred Language: Amharic Communication Ability: Effective 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: No Beliefs That Will Affect Care: None Current Living Situation: Significant Other Feels Safe at Home: Yes Smoking Status: Current every day smoker Tobacco Type: cigarettes ; Second Hand Exposure: No ; Hx Alcohol Use: No Hx Substance Use: No Review of Systems Review of Systems: The patient denies chest pain, palpitations, shortness of breath, dyspnea on exertion, cough, lower extremity swelling, sore throat, fevers, chills, sweats, weight change, fatigue, nausea, vomiting, diarrhea , constipation, abdominal pain, pelvic pain, blood in urine or stool, dysuria, urinary frequency or urgency, lightheadedness, dizziness, headache, rash, abnormal bruising or bleeding, imbalance, focal or generalized weakness, numbness or tingling in arms or legs, generalized arthralgias or myalgias, back or neck pain, or night sweats. The review of systems is otherwise negative other than for that already noted above, and at least 10 systems have been reviewed. Physical Exam Physical Exam: The patient is awake, alert and oriented 3, well developed and well nourished, normocephalic and atraumatic, lying in bed and in no acute distress. HEENT--PERRL, EOMI, mucous membranes and oropharynx normal. Neck--supple. No JVD. No bruits. Thyroid normal, trachea midline, no adenopathy. Heart--normal S1 and S2. No murmurs, rubs or gallops. Lungs--clear bilaterally, no respiratory distress, no accessory muscle use. Abdomen--normal bowel sounds and soft. Nontender. Nondistended. Extremities--no cyanosis or clubbing. No edema. Dermatologic--normal skin turgor, normal color, no abnormal lymph nodes, no rash. Neurologic--cranial nerves II through XII grossly intact. Rheumatologic--normal range of motion. Psychiatric--normal affect. Results & Data Results & Data ([facility]) Vital Signs (Past 12 Hours) Vital Signs Temp Pulse Resp BP Pulse Ox 05/29/20 13:31 85 22 05/29/20 13:30 84 17 178/100 H 05/29/20 13:00 80 21 153/81 H 05/29/20 12:32 81 20 05/29/20 12:29 75 21 155/94 H 05/29/20 10:50 98.6 F 76 20 177/75 H 97 Laboratory Results Laboratory Results WBC 11.24 K/uL (4.8-10.8) H 05/29/20 12:31 RBC 4.73 M/uL (4.2-5.4) 05/29/20 12:31 Hgb 13.8 g/dL (12.0-16.0) 05/29/20 12:31 Hct 39.4 % (37-47) 05/29/20 12:31 MCV 83.3 fL (80-100) 05/29/20 12:31 MCH 29.2 pg (25-34) 05/29/20 12:31 MCHC 35.0 g/dL (32-36) 05/29/20 12:31 RDW Std Deviation 38.9 fL (36.4-46.3) 05/29/20 12:31 RDW Coeff of Arthur 12.9 % (11.5-14.5) 05/29/20 12:31 Plt Count 286 K/uL (130-400) 05/29/20 12:31 MPV 9.9 fL (7.4-10.4) 05/29/20 12:31 Immature Gran % (Auto) 0.4 % 05/29/20 12:31 Neut % (Auto) 72.6 % 05/29/20 12:31 Lymph % (Auto) 22.3 % 05/29/20 12:31 [place] % (Auto) 4.1 % 05/29/20 12:31 Eos % (Auto) 0.4 % 05/29/20 12:31 Baso % (Auto) 0.2 % 05/29/20 12:31 Neut # (Auto) 8.16 K/uL (1.4-6.5) H 07/11/20 12:31 Lymph # (Auto) 2.51 K/uL (1.2-3.4) 05/29/20 12:31 [place] # (Auto) 0.46 K/uL (0.11-0.59) 05/29/20 12:31 Eos # (Auto) 0.05 K/uL (0-0.5) 05/29/20 12:31 Baso # (Auto) 0.02 K/uL (0-0.2) 05/29/20 12:31 Immature Gran # (Auto) 0.04 K/uL (0.00-0.02) H 05/29/20 12:31 Sodium 141 mmol/L (136-145) 05/29/20 12:31 Potassium 4.0 mmol/L (3.5-5.1) 05/29/20 12:31 Chloride 108 mmol/L (98-107) H 05/29/20 12:31 Carbon Dioxide 26 mmol/L (21-32) 05/29/20 12:31 Anion Gap 7.0 (3-11) 05/29/20 12:31 BUN 17 mg/dl (7-18) 05/29/20 12:31 Creatinine 0.88 mg/dl (0.6-1.2) 05/29/20 12:31 Est Cr Clr Drug Dosing 43.4 ml/min 05/29/20 12:31 Est GFR ( Amer) 70.9 05/29/20 12:31 Est GFR (Non-Af Amer) 61.2 05/29/20 12:31 BUN/Creatinine Ratio 19.1 (10-20) 05/29/20 12:31 Glucose 102 mg/dl (70-99) H 05/29/20 12:31 Calcium 9.0 mg/dl (8.5-10.1) 05/29/20 12:31 Magnesium 2.0 mg/dl (1.8-2.4) 05/29/20 12:31 Total Bilirubin 0.5 mg/dl (0.2-1) 05/29/20 12:31 AST 17 U/L (15-37) 05/29/20 12:31 ALT 17 U/L (12-78) 05/29/20 12:31 Alkaline Phosphatase 109 U/L (45-117) 05/29/20 12:31 Troponin I < 0.015 ng/ml (0-0.045) 05/29/20 12:31 Total Protein 8.0 gm/dl (6.4-8.2) 05/29/20 12:31 Albumin 3.9 gm/dl (3.4-5.0) 05/29/20 12:31 Globulin 4.1 gm/dl (2.5-4.0) H 05/29/20 12:31 Albumin/Globulin Ratio 1.0 (0.9-2) 05/29/20 12:31 TSH 1.160 uIu/ml (0.300-4.500) 05/29/20 12:31 Urine Color Yellow 05/29/20 13:06 Urine Appearance Clear (Clear) 05/29/20 13:06 Urine pH 6.5 (4.5-7.5) 05/29/20 13:06 Ur Specific [place] 1.005 (1.000-1.030) 05/29/20 13:06 Urine Protein Negative (Negative) 05/29/20 13:06 Urine Glucose (UA) Negative (Negative) 05/29/20 13:06 Urine Ketones Negative (Negative) 05/29/20 13:06 Urine Blood Negative (Negative) 05/29/20 13:06 Urine Nitrite Negative (Negative) 05/29/20 13:06 Urine Bilirubin Negative (Negative) 05/29/20 13:06 Urine Urobilinogen Negative (Negative) 05/29/20 13:06 Ur Leukocyte Esterase Negative (Negative) 05/29/20 13:06 Diagnostic Findings [place], [place] [phone] XRay Report Patient: AYE WILSON EAdmit Date: 05/29/20 MR#: [id number]: [address] Acct ID:[id number]: Date: 1940[facility] Zip: [place] [address] Age: 80Location: ED Sex: F Room/Bed: Att Phy:Diagnosis: BREATHING ISSUES - PASSED OUT Leona Phy: PCP,NOService Date: 05/29/20 Fam Phy:Interpreting Phy: Kyle Land MD Admit Phy: Ordering Phy: Judah Reynolds M.D. cc: ~ SINGLE VIEW CHEST CLINICAL HISTORY: Syncope. FINDINGS: An AP, portable, upright chest radiograph is compared to study dated 11/20/2018. The examination is degraded by portable technique and patient rotation. The cardiomediastinal silhouette is unremarkable noting atherosclerotic calcification of the thoracic aorta. Chronic interstitial thickening is similar to previous. Mild atelectasis is noted at the left lung base. The lungs and pleural spaces are otherwise clear. No pneumothorax is seen. The skeletal structures are osteopenic. The bony thorax is grossly intact. Calcific tendinopathy is noted in the left shoulder. IMPRESSION: No active disease in the chest. ACT 112: Negative or not required by law. Electronically signed by: Kyle Land M.D. 05/29/2020 12:41 PM Dictated: 05/29/20 1240 Transcribed: 05/29/20 1240 [place], [place] [phone] CT Scan Report Patient: AYE WILSON EAdmit Date: 05/29/20 MR#: [id number]: [address] Acct ID:[id number]: Date: 1940[facility] Zip: [place] [address] Age: 80Location: ED Sex: F Room/Bed: Att Phy:Diagnosis: BREATHING ISSUES - PASSED OUT Leona Phy: PCP,NOService Date: 05/29/20 Fam Phy:Interpreting Phy: Kyle Land MD Admit Phy: Ordering Phy: Judah Reynolds M.D. cc: ~ CT SCAN OF THE BRAIN WITHOUT IV CONTRAST CLINICAL HISTORY: Headache. Syncope. COMPARISON STUDY: No priors. TECHNIQUE: Unenhanced axial CT scan of the brain is performed from the vertex to the skull base. A dose lowering technique was utilized adhering to the principles of ALARA. CT DOSE: 638.56 mGycm FINDINGS: Brain parenchyma: There are age-related involutional changes noting minimal subcortical and periventricular microangiopathic change. There is no hemorrhage, mass effect, or evidence of acute territorial ischemia by CT criteria. Zamudio- white matter differentiation is preserved. No extra-axial fluid collection is seen. Ventricles, sulci, cisterns: Prominent secondary to involutional change. Intracranial vasculature: There is atherosclerotic calcification of the cavernous carotid arteries. Calvarium: Unremarkable. Sinuses and mastoids: The visualized paranasal sinuses are clear. The mastoid air cells are well pneumatized. Orbits: The bony orbits are grossly intact. There are bilateral ocular lens implants. IMPRESSION: There is no hemorrhage, mass effect, or evidence of acute territorial ischemia by CT criteria. ACT 112: Negative or not required by law. Electronically signed by: Kyle Land M.D. 05/29/2020 1:26 PM Dictated: 05/29/20 1323 Transcribed: 05/29/20 1323 Code Status & VTE Plan Code Status Full code VTE Prophylaxis Plan VTE Prophylaxis will be ordered: Yes PG Care Time/CCT Total # of Minutes Spent Total Time Spent with Patient: Total time spent is greater than 50% in coordination of care (as documented) at patient's floor/unit and/or counseling patient: Coding Level of Care Code 47254 OBS Care - Level 3 Diagnoses Syncope R55 Syncope type: unspecified COPD (chronic obstructive pulmonary disease) J44.9 Hypertension I10 Chronic low back pain M54.5; G89.29 (1) Syncope Syncope type: unspecified Qualified Code(s): R55 - Syncope and collapse
[2020-05-29] MEDS ORDERED: ONDANSETRON INJ 2 MG/ML 2 ML VIAL IV PRN (20:21)
[2020-05-29] MEDS ORDERED: MAGNESIUM HYDROXIDE SUSP 30 ML UDC PO PRN (20:21)
[2020-05-29] MEDS ORDERED: ALUMINUM/MAGNESIUM SUSP 30 ML UDC PO PRN (20:21)
[2020-05-29] MEDS ORDERED: ACETAMINOPHEN 325 MG TAB PO PRN (20:21)
[2020-05-29] MEDS ORDERED: ALBUTEROL HFA 8 GM INHALER INH PRN (20:21)
[2020-05-29] MEDS ORDERED: PANTOprazole 40 MG TAB PO PRN (20:34)
[2020-05-29] MEDS: TRAMADOL HCL 50 MG TABLET PO SCH (21:51)
[2020-05-29] MEDS: NSS + 20MEQ KCL 20 MEQ/1,000 ML BAG IV SCH (21:52)
[2020-05-30 04:57] LABS: Basophils # (auto) 0.01 K/uL (0-0.2); Basophils % (auto) 0.1 %; Eosinophils # (auto) 0.13 K/uL (0-0.5); Eosinophils % (auto) 1.4 %; Hemoglobin 12.2 g/dL (12.0-16.0); Immature Granulocytes # (auto) 0.03 K/uL (0.00-0.02); Immature Granulocytes % (auto) 0.3 %; Lymphocytes # (auto) 3.36 K/uL (1.2-3.4); Lymphocytes % (auto) 35.7 %; Mean Corpuscular Volume 85.1 fL (80-100); Mean Platelet Volume 9.7 fL (7.4-10.4); Monocytes % (auto) 6.4 %; Neutrophils # (auto) 5.29 K/uL (1.4-6.5); Neutrophils % (auto) 56.1 %; Platelet Count 258 K/uL (130-400); RDW Coefficient of Variation 12.9 % (11.5-14.5); RDW Standard Deviation 40.1 fL (36.4-46.3); Red Blood Count 4.35 M/uL (4.2-5.4); White Blood Count 9.42 K/uL (4.8-10.8)
[2020-05-30 05:12] LABS: BUN Creatinine Ratio 24.7 (10-20); Blood Urea Nitrogen 21 mg/dl (7-18); Calcium 8.2 mg/dl (8.5-10.1); Carbon Dioxide 28 mmol/L (21-32); Chloride 111 mmol/L (98-107); Est GFR (African American) 76.1; Est GFR (Non-African American) 65.7; Glucose 112 mg/dl (70-99); Magnesium 1.9 mg/dl (1.8-2.4); Potassium 4.3 mmol/L (3.5-5.1); Sodium 144 mmol/L (136-145)
[2020-05-30 05:16] LABS: Phosphorus 3.8 mg/dl (2.5-4.9); Troponin I < 0.015 ng/ml (0-0.045)
[2020-05-30] MEDS: TRAMADOL HCL 50 MG TABLET PO SCH (07:56)
[2020-05-30] MEDS ORDERED: AMLODIPINE BESYLATE 5 MG TAB PO SCH (08:00)
[2020-05-30] MEDS ORDERED: FLUTICASONE/VILANTEROL 100/25MCG 14 PUFFS/INHALER INH SCH (08:00)
[2020-05-30] MEDS ORDERED: MULTIVITAMIN TAB PO SCH (08:00)
[2020-05-30] MEDS ORDERED: MIRABEGRON ER 25 MG TAB PO SCH (08:00)
[2020-05-30] MEDS ORDERED: CALCIUM 600MG + VIT D 400 IU TAB PO SCH (08:00)
[2020-05-30] MEDS ORDERED: CHOLECALCIFEROL 1,000 UNITS 25 MCG TAB PO SCH (08:00)
[2020-05-30] MEDS ORDERED: PNEUMOCOCCAL ADMINISTRATION CHARGE ONE (09:00)
[2020-05-30] MEDS ORDERED: PNEUMOCOCCAL POLYSACCHARIDES 25 MCG/0.5 ML VIAL/SYR IM ONE (09:00)
[2020-05-30] MEDS: NSS + 20MEQ KCL 20 MEQ/1,000 ML BAG IV SCH (09:09)
--- NOTE | 2020-05-30 12:28 | Electrocardiogram Report ---
Test Reason : Blood Pressure : / mmHG Vent. Rate : 071 BPM Atrial Rate : 071 BPM P-R Int : 150 ms QRS Dur : 066 ms QT Int : 404 ms P-R-T Axes : 070 054 078 degrees QTc Int : 439 ms Poor data quality, interpretation may be adversely affected Normal sinus rhythm Nonspecific T wave abnormality Abnormal ECG When compared with ECG of 13-APR-2017 02:36, No significant change was found Confirmed by Jake Bernardo ([id number]) on 05/30/2020 12:28:13 PM Referred By: REFERRED SELF Confirmed By:Jake Bernardo
--- NOTE | 2020-05-30 13:40 | Discharge Summary ---
Date of Service May 30, 2020 Admission HPI Per Admitting Provider Patient is a 80-year-old female with a past medical history including breast cancer, COPD, hypertension, sacral fracture, chronic low back pain and UTI. She reports that she had not eaten breakfast this morning, and started to take a doxycycline pill for the first time on empty stomach. She then went to the restroom, sat on the commode, and passed out for a brief interval time. She did not injure herself in any way as far as head trauma, but but because this was a first event she decided come to the ED for assessment. While in the ED, the ED physician sent off a COVID specimen, and she would therefore be admitted to a negative pressure room. Principal Diagnosis Pt has had no further syncope or near syncope, lightheadedness, dizziness. She states that she has had some stomach upset after taking the doxy dosing each time. She was able to eat without issue. Pt denies fever, SOB, chest pain, abd pain, v/c/d, LE pain or swelling. Pt states she was seen by PCP on Sunday for scratchy throat and congestion. She states "he put a light up my nose and into my throat and told me I had a sinus infection". She states that she is susceptible to these. Discharge Exam Constitutional WD/WN, vitals as above Eyes normal visual nassar by confrontation and + anicteric sclerae Neck normal visual inspection and trachea midline Respiratory normal respiratory effort, lungs clear to auscultation Cardiovascular Rate/Rhythm: regular rate and regular rhythm Gastrointestinal (Abdomen) Inspection/Auscultation: abdomen not distended Percussion/Palpation: abdomen soft; abdomen nontender Musculoskeletal Head/Neck/Chest: normocephalic and head atraumatic Skin no rashes, warm and dry Neurologic awake; not confused Speech / Cognition: normal speech Psychiatric A+Ox3, euthymic affect Discharge Data Allergies Allergy/AdvReac Type Severity Reaction Status Date / Time prednisone Allergy Intermediate face Verified 05/29/20 11:22 flushed and itching on face dexamethasone Allergy Mild FACE Verified 05/29/20 11:22 FLUSHING indomethacin Allergy Mild FACE Verified 05/29/20 11:22 FLUSHING propoxyphene Allergy Unknown FROM Verified 05/29/20 11:22 DARVOCET-ITCHING gabapentin AdvReac Unknown NAUSEA Verified 05/29/20 11:22 morphine AdvReac Unknown vomiting,AG Verified 05/29/20 11:22 GRESSIVE Consultations 05/29/20 14:26 ED Decision to Admit Stat 05/29/20 20:21 Consult Case Management - Discharge Planning Routine Ordered Studies 05/29/20 11:47 CT head/brain wo con Stat Hospital Course (1) Syncope: Patient presents to the emergency department after a syncopal episode on the commode. Upon questioning, she does not remember if she moved her bowels or passed urine. She did not fall forward or hit the floor. She reports that she was just leaning forward. Because she has had no previous occurrence of this, she decided come to emergency department for assessment. CT head was negative, including neg for sinusitis Metabolic work-up was negative for any acute illness. Suspect her issue is related to transient episode of hypoglycemia, as she had not eaten breakfast, and took a doxycycline pill for the first time for a question of sinusitis. Tele monitors neg Trop neg x3 CXR neg for acute UA neg CBC, PRP WNL TSH WNL Unable to perform ECHO due to equipment not having appropriate filter for COVID and pt with outstanding testing Discussed with pt, option of ongoing admission until returned testing vs home with outpt ECHO given low likelihood of cardiac issues Pt preference for d/c home with f/u Called to discuss as well, call not returned CM aware of scheduling needs (2) COPD (chronic obstructive pulmonary disease): Continue usual inhalers, Advair Diskus, albuterol sulfate as needed. (3) Hypertension: Continue amlodipine 5 mg daily with hold parameters. (4) Chronic low back pain: She reports that her tramadol had recently been discontinued by her PCP. She did receive tramadol in emergency department, reports her low back pain is improved. (5) Sinusitis: dx as outpt Pt just started abx with first dose yesterday, just prior to feeling unwell and syncope CT head neg for sinusitis Advised d/c abx Total Time Total Time Spent Total Time Spent (In Minutes): >30 Total Time Includes: Examination of the Patient, Discharge Planning, Medication Reconciliation and Other Discharge Plan Discharge Items Patient Disposition: Home - Self-Care Reason For Visit: SYNCOPE Discharge Diagnosis: Syncope Condition on Discharge: Fair Activity: Resume your previous activity Non-emergency contact: Primary Care Provider Call non-emergency contact if: you have any medication questions and your symptoms worsen Follow-up/Referrals: PCP,NO [Primary Care Provider] - Diet: Regular Addtl Attending Provider Instructions: You were tested for COVID-19 in the ED. These results are not back yet and can take 48 hours or more to result. You should self-isolate at home until your results are known. Due to the pending COVID-19 testing, we were unable to perform an ECHO (ultrasound of your heart) because our ECHO equipment does not have the required air filtration system. As we discussed, you should still have an ECHO done due to your syncopal episode. Our case management team will help you to arrange this as outpatient. If you do not hear from someone from this team in the next few days, please call the hospital to arrange. The CT of your head done on admission was negative for a sinus infection. You can stop taking the doxycycline (antibiotic). If you have new symptoms, you should return to your PCP for follow up. Regardless, you should be seen by your PCP in the next 3-5 days. Pending Studies at Discharge: Yes Studies:: COVID-19 testing Stand-Alone Forms: My [facility] TBS, Smoking Cessation Medications and DC Order Prescriptions: Continued albuterol sulfate 90 mcg/actuation Hfa Aerosol Inhaler 2 puff INHALATION Q6H PRN (Reason: Wheezing) RF: 0 fluticasone propionate [Flonase Allergy Relief] 50 mcg/actuation [place],Geri pension 2 spray INTRANASAL BID RF: 0 calcium carbonate-vitamin D3 500 mg(1,250mg) -200 unit Tablet 1 tab PO QAM RF: 0 multivitamin Tablet 1 tab PO QAM RF: 0 omeprazole 20 mg Tablet,Delayed Release (Dr/Ec) 20 mg PO DAILY PRN (Reason: Acid Reflux) RF: 0 fluticasone propion-salmeterol [Advair Diskus] 100-50 mcg/dose blister with device 1 puff Inhalation BID RF: 0 cholecalciferol (vitamin D3) [Vitamin D3] 1,000 unit Tablet,Chewable 1,000 mg PO DAILY RF: 0 amlodipine 5 mg tablet 5 mg PO DAILY RF: 0 Myrbetriq 25 mg tablet extended release 24 hr 30 mg PO DAILY RF: 0 tramadol 50 mg tablet 50 mg PO BID RF: 0 Discontinued doxycycline hyclate 100 mg capsule 100 mg PO BID RF: 0 Discharge Orders: Discharge Order (Routine); Ordered 05/30/20 Ordered By: Tracie Fajardo Admission Data Admit Date/Time: 05/29/20 16:21 Attending Provider: Tracie Fajardo Admit Provider: Chris Pascal Primary Care Provider: PCP,NO Other Providers: Chris Pascal Other Interventions: Discharge Summary Assessment (RN) Last Done: 05/30/20 14:31 DC Date/Time DO NOT enter until pt leaves facility: 05/30/20 15:41 Coding Level of Care Code D/C Day Management >30 mins Diagnoses Syncope R55 Syncope type: unspecified COPD (chronic obstructive pulmonary disease) J44.9 Hypertension I10 Chronic low back pain M54.5; G89.29 Sinusitis J32.9
[2020-05-30] MEDS ORDERED: FLUTICASONE PROPIONATE NA SPR 16 GM BTL SCH (21:00)
== END 2020-05-30 15:41 | disposition home or self-care (01) ==
LOC: 2W 10:45 → ED 10:45 → SUATTDRO 16:21 → 2W 18:50

== ENCOUNTER 2023-12-12 11:58 | Observation (INO) ==
[2023-12-12 13:49] LABS: Basophils # (auto) 0.04 K/uL (0.00-0.20); Basophils % (auto) 0.5 %; Eosinophils # (auto) 0.12 K/uL (0.00-0.50); Eosinophils % (auto) 1.4 %; Hematocrit (blood only) 39.1 % (37.0-47.0); Hemoglobin 13.1 g/dl (12.0-16.0); Immature Granulocytes # (auto) 0.02 K/uL (0.01-0.20); Immature Granulocytes % (auto) 0.2 %; Lymphocytes # (auto) 2.71 K/uL (1.20-3.40); Lymphocytes % (auto) 31.6 %; Mean Corpuscular Hemoglobin 27.5 pg (25.0-34.0); Mean Corpuscular Hgb Conc 33.5 g/dL (32.0-36.0); Mean Platelet Volume 10.6 fL (9.4-12.4); Monocytes # (auto) 0.55 K/uL (0.11-0.59); Monocytes % (auto) 6.4 %; Neutrophils # (auto) 5.13 K/uL (1.40-6.50); Neutrophils % (auto) 59.9 %; Platelet Count 299 K/uL (130-400); RDW Coefficient of Variation 13.5 % (11.5-14.5); RDW Standard Deviation 39.8 fL (36.4-46.3); Red Blood Count 4.77 M/uL (4.20-5.40); White Blood Count 8.57 K/ul (4.8-10.8)
[2023-12-12 14:06] LABS: Alanine Aminotransferase 14 U/L (7-52); Albumin Globulin Ratio 1.4 (0.9-2); Albumin Level 4.4 gm/dl (3.4-5.0); Alkaline Phosphatase 99 U/L (34-104); Anion Gap 7 (3-11); Aspartate Aminotransferase 21 U/L (13-39); Bilirubin,Total 0.7 mg/dl (0.2-1.0); Blood Urea Nitrogen 16 mg/dl (6-23); Calcium 9.4 mg/dl (8.6-10.3); Carbon Dioxide 27 mmol/L (21-32); Chloride 105 mmol/L (98-107); Est GFR (African American) 64.8 ml/min; Est GFR (Non-African American) 55.9 ml/min; Globulin 3.1 gm/dl (2.5-4.0); Glucose 125 mg/dl (70-99(Fasting)); Potassium 3.9 mmol/L (3.5-5.1); Sodium 139 mmol/L (136-145); Total Protein 7.5 gm/dl (6.0-8.3)
[2023-12-12 15:41] LABS: Appearance Urine Clear (Clear); Bilirubin Urine Negative (Negative); Blood Urine Negative (Negative); Color Urine Yellow; Glucose Urine UA Negative (Negative); Ketones Urine Negative (Negative); Leukocyte Esterase Urine Negative (Negative); Nitrite Urine Negative (Negative); Protein Urine Negative (Negative); Specific Gravity Urine 1.005 (1.000-1.030); Urobilinogen Urine Negative (Negative); pH Urine 6.5 (4.5-7.5)
--- NOTE | 2023-12-12 15:42 | History & Physical Report ---
Date of Service December 12, 2023 Assessment & Plan (1) Dementia: Plan: Suspected chronic rather than acute confusions since she had her license taken away two years ago. Reported difficulties of her partner managing her confusion even prior to his heart attack. CXR and CT head pending to workup reversible causes of acute confusion TSH and B12 level with AM labs to assess for dementia Patient clearly lacks current capacity (she is unable to address safety concerns raised by neighbors, indirect family at bedside, PCP, trying to leave saying her partner's sister will take her home despite them leaving saying she is staying the night) to leave the hospital therefore will be admitted against her wishes - no power of trademark attorney known, since she is unmarried possibly her sister will be her medical decision maker. She cannot leave the hospital at this time unless further examined by a physician and deemed to have capacity. Olanzapine as needed for delirium if at risk to self or others 2.5mg q4h PRN preferably p.o., IM if unable/unwilling to take p.o. meds Continue donepezil (2) Failure to thrive in adult: Plan: Concerns from her sister, partner's family, neighbor, PCP regarding safety at home without her partner. PT/OT/case management consult for placement Likely to need to get office of aging involved as unclear who should be making her medical decisions at this time (3) COPD (chronic obstructive pulmonary disease): Plan: No acute exacerbation suspected Continued routine inhalers or hospital formulary equivalent (4) Hypertension: Plan: Suspect poor compliance with medications (history noted of this on the EHR). Previously prescribed amlodipine 5 mg p.o. daily but last picked this up in May Awaiting PCP notes to determine if we need to restart this (5) Chronic low back pain: Plan: Continue naproxen, reduced to 250 mg p.o. BID Plan VTE prophylaxis - low risk Diet - regular Disposition - admit to [facility] Admission and Anticipated Discharge Date Admission Date: December 12, 2023 History of Present Illness Chief Complaint: Concerns regarding safety of living at home Primary Care Provider: NO PCP Daniela Minor is an 83-year-old female who presents to the ER with her partner's sister and partner's sister's due to need for placement. The patient is unsure why she is here. She reports having left-sided back pain but cannot expand on this in any way. She usually lives with her partner (Ethan) who is listed as her primary contact but currently not available via phone and reportedly was recently life flighted to [facility] due to a heart attack recently. She is not but has a sister in [place] ([place]elsea [phone]) and estranged children whom reportedly she has not seen in 50 to 60 years. After her partner was life flighted there was concern from her sister who couldn't get a hold of her and contacted her neighbors that she was confused and wandering in her back garden. She has been living with her partner's sister and partner's sister's (Adelfo listed as secondary contact) for the last few nights but they are unable to care for her and they are looking at long-term placement options as unclear even when her partner gets out of hospital whether he will be able to continue to care for her. At the very least they are looking for respite care. There is less of a concern for acute confusion and they feel her confusion is longer standing. They report her driving license was taken away 2 years ago due to dementia. Discussed care with her primary care office Alexandra Hercules PA-C who is aware of the patient and is not surprised that she would end up in hospital due to her dementia if upon it was thought that to care for her. She has a diagnosis of mild cognitive impairment on her chart so she thinks this is an understatement. Requested fax for previous neurology notes, PCP note and prior imaging. Discussed with her sister in [place] Nancy ([phone]) who is presumably along with her sisters and brothers the next of kin since the patient is not and children are estranged and raised by other families. She has 3 brothers and 2 other sisters. Wendie Aguilera [phone], Kelli Coates [phone], Gary Coates, Dano Coates. Her sister reports around Sheila she was taking care of her house and keeping it clean with taking care of the dogs although she does note the patient has chronic short-term memory loss it appears to be much worse than around this time. Allergies Allergy/AdvReac Type Severity Reaction Status Date / Time prednisone Allergy Intermediate face Verified 12/12/23 15:07 flushed and itching on face dexamethasone Allergy Mild FACE Verified 12/12/23 15:07 FLUSHING indomethacin Allergy Mild FACE Verified 12/12/23 15:07 FLUSHING propoxyphene Allergy Unknown FROM Verified 12/12/23 15:07 DARVOCET-ITCHING gabapentin AdvReac Unknown NAUSEA Verified 12/12/23 15:07 morphine AdvReac Unknown vomiting,AG Verified 12/12/23 15:07 GRESSIVE Home Medications Medication Instructions Recorded Confirmed Type albuterol sulfate 90 mcg/actuation 2 puff inhalation Q6H PRN Wheezing 08/16/18 05/29/20 History aerosol inhaler calcium carbonate 500 mg-vitamin 1 tab PO QAM 08/16/18 05/29/20 History D3 5 mcg (200 unit) tablet fluticasone propionate 50 2 spray intranasal BID 08/16/18 05/29/20 History mcg/actuation nasal spray,suspension (Flonase Allergy Relief) multivitamin 1 tab PO QAM 08/16/18 05/29/20 History cholecalciferol (vitamin D3) 25 1,000 mg PO DAILY 02/04/19 05/29/20 History mcg (1,000 unit) chewable tablet (Vitamin D3) fluticasone 100 mcg-salmeterol 50 1 puff inhalation BID 02/04/19 05/29/20 History mcg/dose blistr powdr for inhalation (Advair Diskus) amlodipine 5 mg tablet 5 mg PO DAILY 05/29/20 05/29/20 History mirabegron 25 mg tablet,extended 30 mg PO DAILY 05/29/20 05/29/20 History release 24 hr (Myrbetriq) tramadol 50 mg tablet 50 mg PO BID 05/29/20 05/29/20 History donepezil 10 mg tablet 10 mg PO DAILY 12/12/23 12/12/23 History naproxen 500 mg tablet 500 mg PO BIDM 12/12/23 12/12/23 History omeprazole 20 mg capsule,delayed 20 mg PO DAILY .for 6 weeks 12/12/23 12/12/23 History release umeclidinium 62.5 mcg-vilanterol 1 inh inhalation DAILY 12/12/23 12/12/23 History 25 mcg/actuation powdr for inhalation (Anoro Ellipta) Past Med/Surg History Medical History (Updated 12/12/23 @ 17:11 by Bladimir Russell MD) Chronic back pain Cancer L SIDE X 2 Osteoarthritis Hypertension Chronic obstructive pulmonary disease UTI (urinary tract infection) Chronic low back pain Abdominal pain, left lower quadrant Back pain HTN (hypertension) Back pain Sacral fracture Hypertension Coccyx contusion Medical non-compliance Abdominal pain Back pain Hypertension Arthritis COPD (chronic obstructive pulmonary disease) Breast cancer Surgical History (System 12/12/23 @ 15:07 by Elly Woods) History of cataract surgery R/L History of discectomy LUMBAR/CYST REMOVAL H/O chest tube placement DRAINAGE LUNG-MANY YRS AGO History of hysterectomy 1 OVARY H/O oophorectomy Hx of ureter repair RIGHT -1970'S History of lumpectomy of left breast 2002 AND 2007- L ARM RESTRICTION History of back surgery Family History (System 12/12/23 @ 15:07 by Elly Woods) Other Family history non-contributory Social History (System 12/12/23 @ 15:07 by Elly Woods) Smoking Status: Never smoker Second Hand Exposure: No; Do You Dip or Chew Tobacco: No; Hx Alcohol Use: No Hx Substance Use: No Preferred Language: Guamanian Communication Ability: Effective Repatcher Required: No Beliefs That Will Affect Care: None marital status: Life Partner Current Living Situation: Significant Other Feels Safe at Home: Yes Assistive Devices: Denture - Upper and Denture - Lower Review of Systems Review of Systems: All systems reviewed & are unremarkable except as noted in HPI & below Physical Exam Constitutional: WD/WN, vitals as above Eyes: PERRL, conjunctivae normal, anicteric sclerae ENMT: external ear and nose normal, oropharynx normal Respiratory: normal respiratory effort, lungs clear to auscultation Cardiovascular: Rate/Rhythm: regular rate and regular rhythm Heart Sounds: no murmur Extremities: normal capillary refill; no calf tenderness and no pedal edema Gastrointestinal (Abdomen): normal bowel sounds, soft, nontender, no hepatosplenomegaly Musculoskeletal: no cyanosis or clubbing, extremities motor strength 5/5 Skin: no rashes, warm and dry Neurologic: moves all extremities and awake; not confused Psychiatric: Orientation: alert and oriented to person (Self); + not oriented to place and + not oriented to time Apperance: appropriately dressed Eye Contact: + fair eye contact Motor Behavior: + psychomotor agitation Thought Process: + confabulations and + word salad Genitourinary: no CVA tenderness Results & Data Results & Data Vital Signs (Past 12 Hours) Vital Signs Temp Pulse Pulse Resp BP BP Pulse Ox 12/12/23 14:15 58 L 15 175/70 H 96 12/12/23 12:44 36.6 C 60 20 210/86 H 95 O2 Del Method 12/12/23 14:15 Room Air 12/12/23 12:44 Room Air Laboratory Results Abnormal lab results 12/12/23 Range/Units 13:26 Glucose 125 H (70-99(Fasting)) mg/dl Diagnostic Findings None Medications Administered ER medications given: None ECG Rate (beats per minute): 68 Rhythm: normal sinus Findings: no acute ischemic change Comparison ECG Date: no prior available Code Status & VTE Plan Code Status Full - presumed, patient currently does not have capacity to make her medical decisions VTE Prophylaxis Plan VTE Prophylaxis will be ordered: No PG Care Time/CCT Total # of Minutes Spent Total Time Spent: 80 Total Time Spent with Patient: Total time spent is greater than 50% in coordination of care (as documented) at patient's floor/unit and/or counseling patient: Coding Level of Care Code 11554 INT INP/OBS CARE 375MIN Diagnoses Dementia F03.90 Failure to thrive in adult R62.7 COPD (chronic obstructive pulmonary disease) J44.9 Hypertension I10 Chronic low back pain M54.5; G89.29
--- NOTE | 2023-12-12 16:48 | CT Scan Report ---
CT head/brain wo con CLINICAL HISTORY: 83 years-old Female with Acute confusion. Acutely altered mental status TECHNIQUE: Multiple axial CT images of the head were obtained without contrast. A dose lowering tech nique was utilized adhering to the principles of ALARA. CT DOSE: 547.75 mGy.cm COMPARISON: 05/29/2020 FINDINGS: No acute intracranial hemorrhage, midline shift, intracranial mass, acute territorial infarct or abno rmal extra-axial collection. Involutional changes with chronic microvascular ischemic disease. Mild v entriculomegaly again noted. Cerebral vascular calcifications. The calvarium is intact. The paranasal sinuses, mastoid air cells, and middle ear cavities are clear . IMPRESSION: No acute intracranial abnormality. ACT 112: Negative or not required by law. The above report was generated using voice recognition software. It may contain grammatical, syntax o r spelling errors. Electronically signed by: Ben Morejon M.D. 12/12/2023 4:47 PM
--- NOTE | 2023-12-12 17:19 | XRay Report ---
XR chest 1V portable CLINICAL HISTORY: Acute confusion TECHNIQUE: Single frontal radiograph of the chest was obtained. Comparison: Comparison is made to chest radiograph 05/29/2020 FINDINGS: No lines and tubes are seen. Calcified aortic knob is seen. The lungs are clear. No evidence of pleur al effusion or pneumothorax. IMPRESSION: No acute chest disease. ACT 112: Negative or not required by law. Electronically signed by: Tevin Adams M.D. 12/12/2023 5:17 PM
[2023-12-12] MEDS: OLANZapine ZYDIS 5 MG ORALLY DIS. TAB PO ONE (17:28)
[2023-12-12] MEDS ORDERED: OLANZapine 10 MG/2.1 ML SDV IM PRN (18:56)
[2023-12-12] MEDS: NAPROXEN 250 MG TAB PO SCH (20:29)
--- NOTE | 2023-12-12 21:55 | Emergency Department Note ---
History of Present Illness General Chief complaint: Back Injury/Pain Stated complaint: alf placement Time Seen by Provider: 12/12/23 14:59 Source: family History of Present Illness Provider complaint: alf placement 83-year-old female with history of dementia presents emergency department with her boyfriend's sister and . The woman at bedside states she is the boyfriend of the patient's sister who the patient usually lives with. She states that her brother, the patient's boyfriend recently had to be med[facility]ac to [facility] is currently in the ICU there. She states that they were called to help take care of the patient but they are unable to and would like the patient to be placed in a fci. They state they do not know her and are not related to her and are not able to take care of her. They state they present to the emergency department week with a mental health social worker and be admitted for placement. Home Medications Medication Instructions Recorded Confirmed Type albuterol sulfate 90 mcg/actuation 2 puff inhalation Q6H PRN Wheezing 08/16/18 05/29/20 History aerosol inhaler calcium carbonate 500 mg-vitamin 1 tab PO QAM 08/16/18 05/29/20 History D3 5 mcg (200 unit) tablet fluticasone propionate 50 2 spray intranasal BID 08/16/18 05/29/20 History mcg/actuation nasal spray,suspension (Flonase Allergy Relief) multivitamin 1 tab PO QAM 08/16/18 05/29/20 History cholecalciferol (vitamin D3) 25 1,000 mg PO DAILY 02/04/19 05/29/20 History mcg (1,000 unit) chewable tablet (Vitamin D3) fluticasone 100 mcg-salmeterol 50 1 puff inhalation BID 02/04/19 05/29/20 History mcg/dose blistr powdr for inhalation (Advair Diskus) amlodipine 5 mg tablet 5 mg PO DAILY 05/29/20 05/29/20 History mirabegron 25 mg tablet,extended 30 mg PO DAILY 05/29/20 05/29/20 History release 24 hr (Myrbetriq) tramadol 50 mg tablet 50 mg PO BID 05/29/20 05/29/20 History donepezil 10 mg tablet 10 mg PO DAILY 12/12/23 12/12/23 History naproxen 500 mg tablet 500 mg PO BIDM 12/12/23 12/12/23 History omeprazole 20 mg capsule,delayed 20 mg PO DAILY .for 6 weeks 12/12/23 12/12/23 History release umeclidinium 62.5 mcg-vilanterol 1 inh inhalation DAILY 12/12/23 12/12/23 History 25 mcg/actuation powdr for inhalation (Anoro Ellipta) Allergies Allergy/AdvReac Type Severity Reaction Status Date / Time prednisone Allergy Intermediate face Verified 12/12/23 15:07 flushed and itching on face dexamethasone Allergy Mild FACE Verified 12/12/23 15:07 FLUSHING indomethacin Allergy Mild FACE Verified 12/12/23 15:07 FLUSHING propoxyphene Allergy Unknown FROM Verified 12/12/23 15:07 DARVOCET-ITCHING gabapentin AdvReac Unknown NAUSEA Verified 12/12/23 15:07 morphine AdvReac Unknown vomiting,AG Verified 12/12/23 15:07 GRESSIVE Past Med/Surg History Medical History (Updated 12/12/23 @ 21:55 by Jose Angel Shelton MD) Chronic back pain Cancer L SIDE X 2 Osteoarthritis Hypertension Chronic obstructive pulmonary disease UTI (urinary tract infection) Chronic low back pain Abdominal pain, left lower quadrant Back pain HTN (hypertension) Back pain Sacral fracture Hypertension Coccyx contusion Medical non-compliance Abdominal pain Back pain Hypertension Arthritis COPD (chronic obstructive pulmonary disease) Breast cancer Surgical History History of cataract surgery R/L History of discectomy LUMBAR/CYST REMOVAL H/O chest tube placement DRAINAGE LUNG-MANY YRS AGO History of hysterectomy 1 OVARY H/O oophorectomy Hx of ureter repair RIGHT -1969'S History of lumpectomy of left breast 2002 AND 2007- L ARM RESTRICTION History of back surgery Family History Other Family history non-contributory Social History Smoking Status: Never smoker Second Hand Exposure: No; Preferred Language: Irish Communication Ability: Effective Mental Telepathist Required: No Beliefs That Will Affect Care: None marital status: Life Partner Current Living Situation: Significant Other Feels Safe at Home: Yes Assistive Devices: Denture - Upper and Denture - Lower Physical Exam Vital Signs Vital Signs - 24 hr 12/12/23 12:44 12/12/23 14:15 Temperature 36.6 C Temperature Source Temporal Artery Scan Pulse Rate 60 Pulse Rate [Finger] 58 L Respiratory Rate 20 15 Respiratory Effort / Characteristics Non-Labored Spontaneous Respiratory Depth Normal Respiratory Pattern Regular Blood Pressure 210/86 H Blood Pressure [Right Arm] 175/70 H Blood Pressure Mean 127 Blood Pressure Mean [Right Arm] 105 Blood Pressure Position Sitting Pulse Oximetry 95 96 Oxygen Delivery Method Room Air Room Air Sepsis Recent Fever Within 48 Hours No Sepsis New/Unexplained Change in Mental Status No Sepsis Action Taken by Nursing No Action Required Physical Exam HENT: Exam performed. - Head: Normocephalic and atraumatic. EYES: Conjunctivae and EOM are normal. Right eye exhibits no discharge. Left eye exhibits no discharge. No scleral icterus. NECK: Normal range of motion. Neck supple. No JVD present. CV: Normal rate, regular rhythm, normal heart sounds and intact distal pulses. There is no peripheral edema. Palpable radial pulses bue. PULM/CHEST: Effort normal and breath sounds normal. No respiratory distress. No stridor. no wheezes. no rales. ABD: The abdomen is soft. There is no tenderness. NEURO: Motor and sensation grossly intact. SKIN: Skin is warm and dry. He is not diaphoretic. Course Course 1459: The patient was evaluated in room B3. A complete history and physical exam was performed Administered Medications Naproxen (Naproxen 250 Mg Tab) 250 mg PO BIDM [facility] Stop: 01/11/24 18:55 Last Admin: 12/12/23 20:29 Dose: 250 mg Documented By: VIRGIL Discontinued Medications Olanzapine (Olanzapine Zydis 5 Mg Orally Dis. Tab) 2.5 mg PO ONE ONE Stop: 12/12/23 16:07 Last Admin: 12/12/23 17:28 Dose: 2.5 mg Documented By: ELBA Medical Decision Making Laboratory Data Attestation: I reviewed the patient's lab results. 12/12/23 13:26 12/12/23 13:26 Lab Results 12/12/23 12/12/23 Range/Units 13:26 15:30 WBC 8.57 (4.8-10.8) K/ul RBC 4.77 (4.20-5.40) M/uL Hgb 13.1 (12.0-16.0) g/dl Hct 39.1 (37.0-47.0) % MCV 82.0 (80.0-100.0) fL MCH 27.5 (25.0-34.0) pg MCHC 33.5 (32.0-36.0) g/dL RDW Std Deviation 39.8 (36.4-46.3) fL RDW Coeff of Arthur 13.5 (11.5-14.5) % Plt Count 299 (130-400) K/uL MPV 10.6 (9.4-12.4) fL Immature Gran % (Auto) 0.2 % Neut % (Auto) 59.9 % Lymph % (Auto) 31.6 % Schleicher % (Auto) 6.4 % Eos % (Auto) 1.4 % Baso % (Auto) 0.5 % Neut # (Auto) 5.13 (1.40-6.50) K/uL Lymph # (Auto) 2.71 (1.20-3.40) K/uL Schleicher # (Auto) 0.55 (0.11-0.59) K/uL Eos # (Auto) 0.12 (0.00-0.50) K/uL Baso # (Auto) 0.04 (0.00-0.20) K/uL Immature Gran # (Auto) 0.02 (0.01-0.20) K/uL Sodium 139 (136-145) mmol/L Potassium 3.9 (3.5-5.1) mmol/L Chloride 105 (98-107) mmol/L Carbon Dioxide 27 (21-32) mmol/L Anion Gap 7 (3-11) BUN 16 (6-23) mg/dl Creatinine 0.89 (0.6-1.2) mg/dl Est Cr Clr Drug Dosing Not Reportable Est GFR ( Amer) 64.8 ml/min Est GFR (Non-Af Amer) 55.9 ml/min BUN/Creatinine Ratio 18.0 (10-20) Glucose 125 H (70-99(Fasting)) mg/dl Calcium 9.4 (8.6-10.3) mg/dl Magnesium 2.0 (1.7-2.4) mg/dl Total Bilirubin 0.7 (0.2-1.0) mg/dl AST 21 (13-39) U/L ALT 14 (7-52) U/L Alkaline Phosphatase 99 (34-104) U/L Total Protein 7.5 (6.0-8.3) gm/dl Albumin 4.4 (3.4-5.0) gm/dl Globulin 3.1 (2.5-4.0) gm/dl Albumin/Globulin Ratio 1.4 (0.9-2) Urine Color Yellow Urine Appearance Clear (Clear) Urine pH 6.5 (4.5-7.5) Ur Specific [place] 1.005 (1.000-1.030) Urine Protein Negative (Negative) Urine Glucose (UA) Negative (Negative) Urine Ketones Negative (Negative) Urine Blood Negative (Negative) Urine Nitrite Negative (Negative) Urine Bilirubin Negative (Negative) Urine Urobilinogen Negative (Negative) Ur Leukocyte Esterase Negative (Negative) ECG Data Attestation: I personally reviewed and interpreted this ECG as follows: Rate (beats per minute): 68 Rhythm: + normal sinus ECG Intervals/blocks: + Normal NM and + Normal QT-c ECG ST segments: + Normal ST segments Additional Comments: QRS 76 MDM Narrative Cardiac monitoring: An order was placed for continuous cardiac monitoring. The monitor shows a rate of 70 with sinus rhythm interpreted by me Labs within normal limits. Discussed with behavioral health case manager Demi who states that the patient will be need to be admitted to be placed in fci[facility] Impression & Plan Dementia Discharge Plan Visit Data Chief Complaint: Back Injury/Pain Stated Complaint: alf placement ED Provider: Jose Angel Shelton Discharge Problem: Dementia Patient Disposition: Admitted As Inpatient Discharge Instructions Interventions: ED Discharge Assessment Last Done: 12/12/23 18:10
[2023-12-12] MEDS: MELATONIN 3 MG TAB PO PRN (21:57)
--- OUTSIDE RECORDS SUMMARY | 2023-12-13 03:23 | External Medical Summary | Summary of Care ---
Author Name Unknown Organization [facility] Address [address] [facility] [place] [address] Care Team Providers Care Tamale Machine Feeder Name Role Phone Rosamaria Day PA-C Primary Care Provid er Reason for Visit * Reason Onset Date Comments Order Request 12/10/2023 Encounter Details Date Type Department Care Team (Late st Contact Info) Description 12/10/2023 Telephone NeurologyJohn [address] [place] [address] Dr Bashir [address] [place] [phone] Tracie Lorenzo MD [address] [place] [address] Dr Bashir [address] [place] [phone] Order Request Allergies Active Allergy Reactions Criticality Noted Date Comments Dexamethasone 02/15/2004 Venlafaxine Itching,Nausea/vomit ing 01/25/2017 Fentanyl And Related Nausea/vomiting 01/25/2017 Indomethacin 02/15/2004 Levetiracetam Nausea/vomiting 01/25/2017 Pregabalin Other (Please comment) 03/11/2019 Stroke like symptoms Morphine Nausea/vomiting 01/25/2017 Gabapentin 03/14/2006 depression Prednisone Nausea/vomiting 01/25/2017 Propoxyphene Napsylate 02/17/2003 depression documented as of this encounter (statuses as of 12/10/2023) Medications Medication Sig Dispensed Refills Start Date End Date Status traMADol (ULTRAM) 50 MG Tablet Take 1 Tablet by mouth 2 times a day as needed for Pain. 0 Active albuterol-ipratropiu m (DUONEB) 2.5-0.5 MG/3ML nebulizer solution Inhale 3 mL via nebulizer every 4 hours as needed for Shortness of Breath or Wheezing. 0 Active ProAir HFA 108 (90 Base) MCG/ACT Inhalation Aerosol Solution Inhale by mouth . 0 Active rOPINIRole HCl 0.5 MG Oral Tablet (Requip) Take 2 Tablets by mouth daily. 0 Active Naproxen 500 MG Oral Tablet (Naprosyn) Take 1 Tablet by mouth 2 times a day. 0 Active amLODIPine Besylate 5 MG Oral Tablet (Norvasc) Take 1 Tablet by mouth daily. 0 Active Umeclidinium-Vilante rol 62.5-25 MCG/ACT Inhalation Aerosol Powder Breath Activated (ANORO ellipta) Inhale 1 Puff by mouth daily. 0 Active Calcium 600+D3 Plus Minerals 600-800 MG-UNIT Oral Tablet Take 1 Tablet by mouth 2 times a day. 0 Active Vitamin B-12 1000 MCG Oral Tablet (Cyanocobalamin) Take 1 Tablet by mouth daily. 0 Active Donepezil HCl 10 MG Oral Tablet (Aricept) Take 1 Tablet by mouth in the morning. Take with largest meal of the day.. 90 Tablet 3 11/23/2023 Active documented as of this encounter (statuses as of 12/10/2023) Active Problems Problem Noted Date Diagnosed Date History of breast cancer 04/24/2023 ADVANCE DIRECTIVE INFORMATION 03/31/2008 Overview: No, Advance Directive brochure offered , patient declined. 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 04/30/2008 04/24/2023 Pain in limb 03/14/2006 04/24/2023 CA IN SITU BREAST 06/09/2003 04/24/2023 documented as of this encounter (statuses as of 12/10/2023) Immunizations Name Administration Dates Next Due COVID-19 mRNA, LNP-s, No Pre serve, 2-Dose Series (Nanoference) 01/31/2021,01/02/2021 Pneumococcal Polysaccharide PPV23 (Pneumovax) Seasonal Influenza, Split, IIV3, With Preserve, Inj 08/19/2006 documented as of this encounter Social History Tobacco Use Types Packs/Day Years Used Date Smoking Tobacco: Former Cigarettes 0.5 25 Smokeless Tobacco: Never Alcohol Use Standard Drinks/Week Comments Never 0 (1 standard drink = 0.6 oz pur e alcohol) Sex and Gender Information Value Date Recorded Sex Assigned at Not on file Gender Identity Not on file Sexual Orientation Not on file Job Start Date Occupation Industry Not on file Not on file Not on file documented as of this encounter Miscellaneous Notes * Telephone Encounter - Shirley Roberts MED ASSIST - 12/10/2023 8:45 AM EST Bhargavi from [facility] called regarding the CT that was ordered for the pt, they have reached out to the pt 3 times and have not gotten any return calls to schedule. They were calling to make the office aware they will not be reaching out to the pt anymore. documented in this encounter Plan of Treatment Upcoming Encounters Date Type Department Care Team (Late st Contact Info) Description 04/24/2024 9:30 AM EDT Imaging Breast Imaging [facility] [address] [place] [address] 05/05/2024 8:00 AM EDT Office Visit [place] [facility] [phone] Zan Walker MD [address] [place] [phone] 05/30/2024 10:00 AM EDT Office Visit Neurology, [address] Bashir [address] [place] [phone] Tracie Lorenzo MD [address] [place] [address] Dr Bashir [address] [place] [phone] Health Maintenance Due Date Last Done Comments DXA Scan 1938 Depression Screening 1950 DTaP,Tdap,and Td Vaccines (1 - Tdap) 1959 COVID-19 Vaccine ( season) 2023 11/21/2021, 01/31/2021, 01/02/2021 Influenza Vaccine (FLU shot) (#1) 2023 08/16/2021, 07/28/2020, 08/14/2019, Additional history exists Pneumococcal Vaccine: 65+ Years Completed 12/01/2014, 08/18/2009, 09/19/2003 Zoster Vaccines Completed 11/01/2020, 07/28/2020 GARDASIL-HPV IMMUNIZATION SERIES Aged Out No longer eligible based on patient's age to complete this topic Hepatitis B Aged Out No longer eligi ble based on patient's age to complete this topic MENINGOCOCCAL (MENACTRA/MENVEO) Aged Out No longer eligible based on patient's age to complete this topic documented as of this encounter Medical Devices Not on filedocumented as of this encounter Care Teams Tamale Machine Feeder Relationship Specialty Start Date End Date Rosamaria Day PA-C [address] [place] [address] [place] [id number] PCP - General Physician Rat Trapper 04/24/23 documented as of this encounter
--- OUTSIDE RECORDS SUMMARY | 2023-12-13 03:24 | External Medical Summary | Summary of Care ---
Author Name Unknown Organization [facility] Address [address] [facility] [place] [address] Care Team Providers Care Asbestos Cloth Inspector Name Role Phone Rosamaria Day PA-C Primary Care Provid er Reason for Referral * Precert (Within 10 days (routine)) - Pending Review Specialty Diagnoses / Procedures Referred By Kilo chavez Referred To Contact Radiology Diagnoses Aphasia Procedures CT HEAD/BRAIN WO CONTRAST Tracie Lorenzo MD [address] [place] [address] Dr Bashir [address] [place] [phone] Referral ID Status Reason Start Date Expiration Date V isits Requested Visits Authorized [id number] Pending Review 11/30/2023 999 999 Reason for Visit * Reason Comments Return Neuro Encounter Details Date Type Department Care Team (Late st Contact Info) Description 11/23/2023 10:00 AM EST Office Visit Neurology, [address] Bashir [address] [place] [phone] Tracie Lorenzo MD [address] [place] [address] Dr Bashir [address] [place] [phone] Aphasia*; Dementia of the Alzheimer's type, with late onset, uncomplicated (HCC) Allergies Active Allergy Reactions Criticality Noted Date Comments Dexamethasone 02/15/2004 Venlafaxine Itching,Nausea/vomit ing 01/25/2017 Fentanyl And Related Nausea/vomiting 01/25/2017 Indomethacin 02/15/2004 Levetiracetam Nausea/vomiting 01/25/2017 Pregabalin Other (Please comment) 03/11/2019 Stroke like symptoms Morphine Nausea/vomiting 01/25/2017 Gabapentin 03/14/2006 depression Prednisone Nausea/vomiting 01/25/2017 Propoxyphene Napsylate 02/17/2003 depression documented as of this encounter (statuses as of 12/04/2023) Medications Medication Sig Dispensed Refills Start Date End Date Status traMADol (ULTRAM) 50 MG Tablet Take 1 Tablet by mouth 2 times a day as needed for Pain. 0 Active albuterol-ipratro pium (DUONEB) 2.5-0.5 MG/3ML nebulizer solution Inhale 3 [...] 1 Tablet by mouth daily. 0 Active Umeclidinium-Merna nterol 62.5-25 MCG/ACT Inhalation Aerosol Powder Breath Activated [...] the day.. 90 Tablet 3 11/23/2023 Active Donepezil HCl 10 MG Oral Tablet (Aricept) Take 1 Tablet by mouth in the morning. Take with largest meal of the day.. 90 Tablet 3 05/25/2023 11/23/2023 Discontinued (Refill) documented as of this encounter (statuses as of 12/04/2023) Active Problems Problem Noted Date Diagnosed Date History of breast cancer 04/24/2023 ADVANCE DIRECTIVE INFORMATION 03/31/2008 Overview: No, Advance Directive brochure offered , patient declined. 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 04/30/2008 04/24/2023 Pain in limb 03/14/2006 04/24/2023 CA IN SITU BREAST 06/09/2003 04/24/2023 documented as of this encounter (statuses as of 12/04/2023) Immunizations Name Administration Dates Next Due COVID-19 mRNA, LNP-s, No Pre serve, 2-Dose Series ([employer]) 01/31/2021,01/02/2021 Pneumococcal Polysaccharide PPV23 (Pneumovax) Seasonal Influenza, [...] on file documented as of this encounter Progress Notes * Tracie Lorenzo MD - 12/04/2023 6:17 PM EST PROGRESS NOTE - [facility] Name: Daniela Minor Date: 11/23/2022 SUBJECTIVE: Daniela Minor is a 83 year old female with advanced dementia. At her previous appointment with myself she scored 9/30 on cognitive assessment which is consistent with advanced dementia. Vitamin B12 and TSH were unremarkable. CT head was ordered over a year ago but has never been obtained. I reordered CT head today. There is nobody present in the appointment with her today for collateral information and she is a poor historian. She has continued on donepezil 10 mg daily which I recommend she continue. She does report to me today that she picks out her own clothes and helps withcooking and cleaning around the house. ROS: Review of systems are as per HPI otherwise all 10 systems were reviewed and are reported as negative. 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 Pertinent past social history: Social History Socioeconomic History Marital status: Single Spouse name: Not on file Number of children: 4, 3alive Years of education: Not on file Highest education level: Not on file Occupational History Occupation: [employer] Tobacco Use Smoking status: Former Packs/day: 0.50 Years: 25.00 Additional pack years: 0.00 Total pack years: 12.50 Types: Cigarettes Smokeless tobacco: Never Vaping Use Vaping Use: Never used Substance and Sexual Activity Alcohol use: Never Drug use: No Sexual activity: Not on file Other Topics Concern Not on file Social History Narrative Not on file Social Determinants of Health Financial Resource Strain: Not on file Food Insecurity: Not on file Transportation Needs: Not on file Physical Activity: Not on file Stress: Not on file Social Connections: Not on file Intimate Partner Violence: Not on file Housing Stability: Not on file OBJECTIVE: Physical Examination: Exam: Constitutional: Appearance normally developed, well nourished, non-obese, no deformities and well groomed Head and face: normocephalic and atraumatic Neck: supple, symmetrical and thyroid normal Respiratory: normal effort and clear to auscultation Cardiovascular: normal heart sounds, regular rhythm, normal pulses and carotid artery: no bruits. normal pulse amplitude Abdomen: no masses noted, soft and no pain upon palpation Skin: no rashes, lesions, or ulcers noted Psychiatric: normal judgement and insight, normal mood and normal affect NEUROLOGIC EXAMINATION: Appearance: No Acute Distress Orientation: Awake, Alert, and Oriented x 0 Mental status: alert Memory: Registation 0/3 Recall 303 Attention: Normal Knowledge: Extremely limited Language: Moderate aphasia Speech: No dysarthria Cranial Nerves: 2 No Visual Defect on Confrontation; Pupils round, equal, reactive to light 3,4,6 Extraocular Movements Intact; no nystagmus 5 Facial Sensation Intact 7 No facial asymmetry 8 Intact hearing 9,10 Palate symmetric, normal gag 11 Good shoulder shrug 12 Tongue Midline Gait: Stable, No ataxia, can perform tandem walking Coordination: No ataxia with finger to nose testing and heel to marquez testing Sensory: Intact, Symmetric to Pinprick, Light Touch, Vibration, and Joint Position Muscle Tone: Normal Muscle exam Arm Right Left Leg Right Left Deltoid 5/5 5/5 Iliopsoas 5/5 5/5 Biceps 5/5 5/5 Quads 5/5 5/5 Triceps 5/5 5/5 Hamstrings 5/5 5/5 Wrist Extension 5/5 5/5 Ankle Dorsi Flexion 5/5 5/5 Wrist Flexion 5/5 5/5 Ankle Plantar Flexion 5/5 5/5 Interossei 5/5 5/5 Ankle Eversion 5/5 5/5 APB 5/5 5/5 Ankle Inversion 5/5 5/5 Reflexes RJ BJ TJ KJ AJ Plantars Lynn's Right 2+ 2+ 2+ 2+ 2+ Downgoing Not present Left 2+ 2+ 2+ 2+ 2+ Downgoing Not present LABS: Labs reviewed as indicated below: CBC Results: Results for orders placed or performed in visit on 03/12/08 CBC Result Value Ref Range WBC 13.06 (H) 4.00 - 10.80 K/uL RBC 4.76 3.85 - 5.15 M/uL HGB 14.2 12.0 - 14.5 g/dL HCT 40.2 36.0 - 44.5 % MCV 84.4 81.5 - 97.5 fL MCH 29.8 27.0 - 34.0 pg MCHC 35.3 32.0 - 36.0 g/dL RDW 12.2 11.5 - 15.5 % PLT 308 150 - 400 K/uL MPV 8.2 6.6 - 11.1 fL Basic Panel Results: Results for orders placed or performed in visit on 07/10/22 BASIC METABOLIC PANEL Result Value Ref Range GLUCOSE-OUTSIDE LAB 106 70 - 110 MG/DL BUN-OUTSIDE LAB 15 6 - 25 MG/DL CREATININE-OUTSIDE LAB 0.8 0.5 - 1.2 MG/DL SODIUM-OUTSIDE LAB 143 135 - 145 MEQ/L POTASSIUM-OUTSIDE LAB 4.3 3.5 - 5.0 MEQ/L CHLORIDE-OUTSIDE LAB 106 95 - 107 MEQ/L CO2-OUTSIDE LAB 28 24 - 31 MEQ/L CALCIUM-OUTSIDE LAB 9.5 8.5 - 10.6 MG/DL EGFR-OUTSIDE LAB 73 >60 Lab Results Component Value Date/Time LDL (DIRECT MEASURE)-OUTSIDE LAB 105 08/14/2022 01:40 PM Past Neuroimaging: None IMPRESSION: 83 year old female presents for follow-up evaluation of advanced dementia. RECOMMENDATIONS: #1 Advanced dementia. I have reordered CT head. Vitamin B12 and TSH were normal. Score at the last appointment on cognitive testing was 08/18. She will continue with donepezil 10 mg daily. 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 Tracie Lorenzo MD 12/04/2023 6:17 PM documented in this encounter Plan of Treatment Upcoming Encounters Date Type Department Care Team (Late st Contact Info) Description 04/24/2024 9:30 AM EDT Imaging Breast Imaging [address] [address] 05/05/2024 8:00 AM EDT Office Visit [place] [facility] [place] [phone] Zan Walker MD [address] [phone] 05/30/2024 10:00 AM EDT Office Visit Neurology, [address] Bashir [address] [place] [phone] Tracie Lorenzo MD [address] [place] [address] Dr Bashir [address] [place] [id number] Scheduled Orders Name Type Priority Associated Diagnoses Orde r Schedule CT HEAD/BRAIN WO CONTRAST Medical Imaging Routine Aphasia Expected: 11/30/2023, Expires: 12/24/2024 Health Maintenance Due Date Last Done Comments [...] Not on filedocumented as of this encounter Visit Diagnoses Diagnosis Aphasia- Primary Dementia of the Alzheimer's type, with late onset, uncomplicated (HCC) Alzheimer's disease documented in this encounter Care Teams Asbestos Cloth Inspector Relationship Specialty Start Date End Date Rosamaria Day PA-C [address] [place] [address] [place] [id number] PCP - General Physician Scientific Software Developer 04/24/23 documented as of this encounter
--- OUTSIDE RECORDS SUMMARY | 2023-12-13 03:24 | External Medical Summary | Continuity of Care Document ---
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 [facility] - Female Pelvic Medicine and Reconstructive Surgery Care Team Information Community Health Counselor [phone] [facility] [place] Team Information Re ceiver [phone] Tracie Lorenzo MD Care Team Information Community Health Counselor [phone] Problems Active Problems Provider Date Chronic obstructive lung disease Lexa Angeles PA-C Onset: 08/28/2019 Essential hypertension Zach N DO Pablo Ledbettere t: 06/10/2019 Hyperlipidemia Lexa Angeles PA-C Onset: 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 Lexa Angeles PA-C Onset: 06/10/2019 Note: Document: 06/06/19 - O ld Records - breast center Malignant neoplasm of female breast Lexa lamar PA-C Onset: 06/10/2019 Smoker Madina Larson MD Onset: 06/20 Overactive bladder Lexa Angeles PA-C Onset: 05/19/2020 Note: Document: 05/19/20 - O bgyn Consult Urinary incontinence Rosamaria Day PA-C Onset : 06/29/2020 Personal history of primary malignant neoplasm of breast Alexandra Hercules PA-C Onset: 08/17/2021 Mild cognitive disorder Rosamaria Day PA-C On set: 09/18/2022 Atherosclerosis of aorta Rosamaria Day PA-C O nset: 05/17/2023 Social History Type Date Description Comments Sex Unknown Tobacco Use Start: Unknown Currently Smokes 1-5 Cigarettes Daily Smoking Status Reviewed: 08/20/23 Currently Smo kes 1-5 Cigarettes Daily Tobacco Use Start: Unknown Never Smoked Cigars Tobacco Use Start: Unknown Never Smoked A Pipe Smokeless Tobacco Never Used Smokeless To bacco ETOH Use Never used alcohol Recreational Drug Use Never Used Drugs Allergies and adverse reactions Active Allergies Criticality Reaction | Severity Comments Date Morphine Unable to assess criticality 03/31/2019 Effexor Unable to assess criticality 05/19/2019 Keppra Unable to assess criticality 05/19/2019 Dexamethasone Unable to assess criticality 05/19/2019 Droperidol / Fentanyl Unable to assess criticality 05/19/2019 Gabapentin Unable to assess criticality 05/19/2019 Indomethacin Unable to assess criticality 05/19/2019 Prednisone Unable to assess criticality 05/19/2019 Propoxyphene Unable to assess criticality 05/19/2019 Medications Active Medications SIG Qnty Indications Order ing Provider Date Oxybutynin Chloride ER5mg Tablets ER 24HR 1 by mouth every day 90Tablet N39.42 Madina Larson MD 08/20/[id number] 1 by mouth every day for 6 weeks 42caps R10.13 Nadir Sosa, 07/04/2023 Tizanidine HCL2mg Tablets 1-2 tablets by mouth at bedtime 14tabs R25.2 Madina Larson MD 02/27/2023 Dbsscnvysa11ll Tablets take 1 tablet by mouth twice a day as needed for acid reflux 60Tablet R10.13 Madina Larson MD 02/27/2023 Donepezil PXA61rw Tablets 1 tablets daily by mouth 30tabs G31.84 Zachgarrett Ledbetter, DO 01/26/2023 Anoro Dhtumtw79.5-25mcg/Act Aerosol 1 puff every day 60units J44.9 Zachgarrett Ledbetter, DO 09/07/2022 Lticgdbf745vh Tablets Take 1 Tablet Twice Daily With Meals 30tabs Zach Ledbetter, DO 07/10/2022 Airs Pediatric Aerosol MaskMisc use with nebulizer 1units Zach Ledbetter, DO 07/09/2021 Nebulizer Kit/Tubing/MouthpieceK it use with nebulizer needs mask 2units J44.9 Zach N Khloe, DO 06/16/2021 Amlodipine Hvpmioql4zw Tablets Take 1 Tablet By Mouth Daily 30tabs I10 Zachstaci Ledbetter, DO 10/09/2019 Ipratropium [place]/Albuterol Sulfate0.5-2.5(3)mg/3M L Solution inhale 3 milliliters via nebulizer every 4 hours as needed (shortness of breath). 360ml J44.9 Zach Ledbetter, DO 07/11/2019 NebulizerDevice use as directed. 1units J44.9 Mike Ledbetter, DO 07/11/2019 Proair RBK632(90Base) mcg/Act Aerosol 2 puffs every 4-6 hours as needed 25.5gm R06.02 Zachstaci Ledbetter, DO 04/28/2019 Tramadol DUM76os Tablets 1 by mouth three times a day as needed pain Parag ZAVALA, Dwaine Martines [facility] Calcium 600 & Vitamin [id number]-Omaa Tablets take 1 tablet by mouth twice a day Unknown [facility] Vitamin [id number] Tablets 1 by mouth every day Unknown History Medications Ohnnyjxb067kz Capsules take one capsule by mouth twice daily for 3 days. 6caps N39.42 Madina Larson MD 08/20/2023 - 08/23/2023 Immunizations CPT Code Status Date Vaccine Lot # [id number] Given 11/21/2021 Pfizer Sars-Cov -2 (Cov-19) vacc 30mcg/0.3ML 12Y+ EMR Doc Only 97428 Given 08/16/2021 Influenza Vaccine High Do se 0.5ML Age 65 & > 44914 Given 01/31/2021 Pfizer Sars-Cov -2 (Cov-19) vacc 30mcg/0.3ML 12Y+ EMR Doc Only 76640 Given 01/02/2021 Pfizer Sars-Cov -2 (Cov-19) vacc 30mcg/0.3ML 12Y+ EMR Doc Only 90126 Given 11/01/2020 Shingrix 03114 Given 07/28/2020 Shingrix 97023 Given 07/28/2020 Influenza Vaccine High Do se 0.5ML Age 65 & > 19100 Given 08/14/2019 Influenza Vacci ne, Inactivated, Subunit, Adjuvanted, For [facility] [id number] 09838 Given 12/01/2014 Pneumococcal Conjugate-Pr evnar 13 90479 Given 08/18/2009 Pneumococcal Vaccine/Pneu movax 23 12979 Refused 01/11/2021 Tdap (Tetanus, diphtheria & acel. pertussis) Adacel or Boostrix 28608 Refused 06/02/2019 Influenza Virus Vaccine, Quadrivalent, Im Use Vital Signs Date Vital Result Comment 08/20/2023 2:04pm BP Systolic 144 mmHg BP Diastolic 78 mmHg Body Temperature 97.6 F Heart Rate 90 /min Respiratory Rate 18 /min Weight 148.00 lb Weight 67.133 kg Height 61 inches 5'1" BMI (Body Mass Index) 28.0 kg/m2 [place] Body Weight 105 lb 07/04/2023 12:58pm BP Systolic 148 mmHg BP Diastolic 66 mmHg Body Temperature 97.8 F Heart Rate 63 /min Respiratory Rate 18 /min Weight 146.12 lb Weight 66.282 kg Height 61 inches 5'1" BMI (Body Mass Index) 27.6 kg/m2 O2 % BldC Oximetry 94 % [place] Body Weight 105 lb Results Test Acquired Date Facility Test Result H/L Range N ote Comp. Met 07/04/2023 [facility]. [address] [place] [address] [phone] Glucose 99 mg/dL 70-110 BUN 23 mg/dL 6-25 Creatinine 1.0 mg/dL 0.5-1.2 Sodium 140 mEq/L 135-145 Potassium 4.4 mEq/L 3.5-5.0 Chloride 103 mEq/L 95-107 Co-2 29 mEq/L 24-31 Alk Phos 84 IU/L 43-122 Alt(SGPT) 7 IU/L Low 10-40 Ast(Sgot) 14 IU/L 3-42 T.Bilirubin 0.6 mg/dL 0.1-1.3 Calcium 9.4 mg/dL 8.5-10.6 Tot.Protein 6.6 g/dL 5.8-8.0 Albumin 4.0 g/dL 3.0-5.2 Globulin 2.6 g/dL 2.0-3.4 GFR 56 ML/MIN/1.73SQM Low >60 CBC W/Diff 07/04/2023 [facility]. [address] [place] [address] [phone] WBC 11.3 10^3/M3 High 3.1-9.2 RBC 4.71 10^6/M3 3.70-5.50 HGB 13.2 GR/DL 11.5-16.1 HCT 40.1 % 34.5-47.8 MCV 85.1 CUMICR 82.6-95.8 MCH 28.0 PICOGR 27.9-32.9 MCHC 32.9 % 32.6-35.4 RDW 14.8 % High 11.4-14.6 PLT 323 10^3/M3 140-350 MPV 9.2 CUMICR 7.0-10.6 %Neut 66.0 % 40.0-75.0 %Lymph 26.4 % 17.0-45.0 %[place] 5.5 % 1.0-11.0 %Eos 1.5 % 0.0-6.0 %Baso 0.6 % 0.0-2.0 #Neut 7.5 10^3/M3 1.5-8.0 #Lymph 3.0 10^3/M3 0.8-3.2 #[place] 0.6 10^3/M3 0.0-0.8 #Eos 0.2 10^3/m3 0.0-0.4 #Bas[place] 0.1 10^3/m3 0.0-0.2 Lipid 05/04/2023 [facility] [address] [place] [address] [phone] Cholesterol 157 mg/dL 0-200 1, 2 Triglyceride 88 mg/dL 0-150 3 HDLD 43 mg/dL See Comment 4 Measured LDL 95 mg/dL 0-130 5 Calc VLDL 17.6 mg/dL See Comment 6 Chol/HDL 3.7 RATIO See Comment 7 Non-HDL 114 mg/dL See Comment 8 Comp. Met 05/04/2023 [facility] [address] [place] [address] [phone] Glucose 105 mg/dL 70-110 BUN 22 mg/dL 6-25 Creatinine 1.0 mg/dL 0.5-1.2 Sodium 143 mEq/L 135-145 Potassium 4.0 mEq/L 3.5-5.0 Chloride 106 mEq/L 95-107 Co-2 27 mEq/L 24-31 Alk Phos 80 IU/L 43-122 Alt(SGPT) 12 IU/L 10-40 Ast(Sgot) 16 IU/L 3-42 T.Bilirubin 0.6 mg/dL 0.1-1.3 Calcium 9.2 mg/dL 8.5-10.6 Tot.Protein 6.2 g/dL 5.8-8.0 Albumin 4.1 g/dL 3.0-5.2 Globulin 2.1 g/dL 2.0-3.4 GFR 56 ML/MIN/1.73SQM Low >60 Laboratory test finding 05/04/2023 [facility] [address] [place] [address] [phone] Vitd-25Oh 23 ng/mL Low 30-100 1 FASTING 2 CHOLESTEROL Less than 200mg/dl Low risk 201-239 mg/dl Borderline risk Equal to or greater 240mg/dl High risk 3 TRIGLYCERIDES Less than 150mg/dl Normal 150-199mg/dl Borderline 200-499mg/dl High Greater than 500mg/dl Very High 4 HDL <40mg/dl Elevated Risk 41-59mg/dl Risk >=60mg/dl Least Risk 5 LDL <100mg/dl Optimal 100-129mg/dl Near Optimal 130-159mg/dl Borderline High 160-189mg/dl High >=190 Very High 6 VLDL Less than 30mg/dl Normal 7 CHOL/HDL <4.0 Optimal 4.0-5.0 Borderline >6.0 High Risk 8 NON-HDL 30mg/dl higher than LDL Target Procedures Date Code Description Status 07/04/2023 52416 Venipuncture Routine Complet ed 05/17/2023 3079F PVRP Diastolic BP 80-89 MMHG Completed 05/17/2023 3077F PVRP Systolic BP >/= 140 MMH G Completed 05/04/2023 23403 Venipuncture Routine Complet ed 04/13/2022 [id number] Mammogram Completed 02/25/2018 [id number] Bone Mineral Density Test Co mpleted Medical Devices Description No Information Available Encounters Type Date Location Provider Dx Diagnosis Office Visit 08/20/2023 11:15a [facility] Alexandra Hercules PA-C N39.42 Incontinence without sensory awareness Office Visit 07/04/2023 2:00p [facility] Nadir Sosa, R10.13 Epigastric pa in Office Visit 05/17/2023 3:00p [facility] Rosamaria Day PA-C G31.84 Mild cognitive impairment of uncertain or unknown etiology I10 Essential (primary) hypertension I70.0 Atherosclerosis of a wilfrido Assessments Date Code Description Provider 08/20/2023 N39.42 Incontinence without sensory awareness Alexandra Hercules PA-C 07/04/2023 R10.13 Epigastric pain Nadir mcmahon, DO 05/17/2023 G31.84 Mild cognitive i mpairment of uncertain or unknown etiology Rosamaria Day PA-C 05/17/2023 I10 Essential (primary) hyperten tish Rosamaria Day PA-C 05/17/2023 I70.0 Atherosclerosis of aorta Crescencio Day PA-C 05/04/2023 I10 Essential (primary) hyperten tish Zach Ledbetter DO 05/04/2023 I10 Essential (primary) hyperten tish Lab - [facility] 05/04/2023 M81.0 Age-related oste oporosis without current pathological fracture Zcah Ledbetter DO Plan of Treatment Future Appointment(s):* 09/17/2023 2:00 pm - Rosamaria Day PA-C at [facility] 08/20/2023 - Alexandra Hercules PA-C* N39.42 Incontinence without sensory awareness* New Medication:* Oxybutynin Chloride ER 5 mg - 1 by mouth every day * Cefdinir 300 mg - take one capsule by mouth twice daily for 3 days. * Comments:* Patient unable to give urine specimen. I am concerned for infection as she seems more confused thanusual today although I think this is likely underlying incontinence. Will start abx for 3 days as well as oxybutynin daily. Call if no improvement or symptoms worsen. Prescriptions sent to [facility]. * Follow up:* As scheduled Functional Status Description No Information Available Mental Status Description No Information Available Referrals Description No Information Available
--- OUTSIDE RECORDS SUMMARY | 2023-12-13 03:24 | External Medical Summary | Continuity of Care Document ---
Author Name ROSAMARIA CROWLEY Address [address] [place] [address] Phone [phone] Organization [facility] Address [address] [place] [address] Phone [phone] Care Team Providers Care Tin Can Feeder Name Role Phone frame aligner [facility] - Female Pelvic Medicine and Reconstructive Surgery Care Team Information Campaign Analyst [phone] [facility] [place] [place] Care Team Information Re ceiver [phone] Tracie Lorenzo MD Care Team Information Campaign Analyst [phone] Problems Active Problems Provider Date Chronic obstructive lung disease Lexa Angeles PA-C Onset: 08/28/2019 Essential hypertension Zach N Khloe, DO Onse t: 06/10/2019 Hyperlipidemia Lexa Angeles PA-C Onset: 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 Lexa Angeles PA-C Onset: 06/10/2019 Note: Document: 06/06/19 - O ld Records - breast center Malignant neoplasm of female breast Lexa lamar PA-C Onset: 06/10/2019 Smoker Madina Larson MD Onset: 06/20 Overactive bladder Lexa Angeles PA-C Onset: 05/19/2020 Note: Document: 05/19/20 - O bgyn Consult Urinary incontinence Rosamaria Crowley PA-C Onset : 06/29/2020 Personal history of primary malignant neoplasm of breast Alexandra Hercules PA-C Onset: 08/17/2021 Mild cognitive disorder Rosamaria Crowley PA-C On set: 09/18/2022 Atherosclerosis of aorta Rosamaria Crowley PA-C O nset: 05/17/2023 Social History Type Date Description Comments Sex Unknown Tobacco Use Start: Unknown Currently Smokes 1-5 Cigarettes Daily Smoking Status Reviewed: 09/17/23 Currently Smo kes 1-5 Cigarettes Daily Tobacco [...] day 90Tablet N39.42 Madina Larson MD 08/20/[address] take 1 by mouth every day for 6 weeks 42caps R10.13 Nadir Sosa, 07/04/2023 Thwqjlmgvl37sn Tablets take 1 tablet by mouth twice a day as needed for acid reflux 60Tablet R10.13 Madina Larson MD 02/27/2023 Donepezil ADS16ko Tablets 1 tablets daily by mouth 30tabs G31.84 Zach Ledbetter, DO 01/26/2023 Anoro Wjvvpjt29.5-25mcg/Act Aerosol 1 puff every day 60units J44.9 Zach Ever Ledbetter, DO 09/07/2022 Yzssbyow294ho Tablets Take 1 Tablet Twice Daily With Meals 30tabs Zach Ledbetter, DO 07/10/2022 Airs Pediatric Aerosol MaskMisc use with nebulizer 1units Zach Ledbetter, DO 07/09/2021 Nebulizer Kit/Tubing/MouthpieceK it use with nebulizer needs mask 2units J44.9 Zach Ledbetter, DO 06/16/2021 Amlodipine Gjmtpdgo4ag Tablets Take 1 Tablet By Mouth Daily 30tabs I10 Zachstaci Ledbetter, DO 10/09/2019 Ipratropium [place]/Albuterol Sulfate0.5-2.5(3)mg/3M L Solution inhale 3 milliliters via nebulizer every 4 hours as needed (shortness of breath). 360ml J44.9 Zach Ledbetter, DO 07/11/2019 NebulizerDevice use as directed. 1units J44.9 Dom staci Ledbetter, DO 07/11/2019 Proair CXH936(90Base) mcg/Act Aerosol 2 puffs every 4-6 hours as needed 25.5gm R06.02 Zach Ledbetter, DO 04/28/2019 Tramadol SKE25tx Tablets 1 by mouth three times a day as needed pain Parag ZAVALA, Dwaine Martines [facility] Calcium 600 & Vitamin [id number]-Pakb Tablets take 1 tablet by mouth twice a day Unknown [facility] Vitamin E180476loa Tablets 1 by mouth every day Unknown History Medications Dwmvekdm540ra Capsules take one capsule by mouth twice daily for 3 days. 6caps N39.42 Madina Larson MD 08/20/2023 - 08/23/2023 Immunizations CPT Code Status Date Vaccine Lot # [id number] Given 11/21/2021 Pfizer Sars-Cov -2 (Cov-19) vacc 30mcg/0.3ML 12Y+ EMR Doc Only 94909 Given 08/16/2021 Influenza Vaccine High Do se 0.5ML Age 65 & > 14101 Given 01/31/2021 Pfizer Sars-Cov -2 (Cov-19) vacc 30mcg/0.3ML 12Y+ EMR Doc Only 64727 Given 01/02/2021 Pfizer Sars-Cov -2 (Cov-19) vacc 30mcg/0.3ML 12Y+ EMR Doc Only 75266 Given 11/01/2020 Shingrix 77732 Given 07/28/2020 Shingrix 86934 Given 07/28/2020 Influenza Vaccine High Do se 0.5ML Age 65 & > 47159 Given 08/14/2019 Influenza Vacci ne, Inactivated, Subunit, Adjuvanted, For [facility] 194710 68044 Given 12/01/2014 Pneumococcal Conjugate-Pr evnar 13 27042 Given 08/18/2009 Pneumococcal Vaccine/Pneu movax 23 98338 Refused 01/11/2021 Tdap (Tetanus, diphtheria & acel. pertussis) Adacel or Boostrix 08682 Refused 06/02/2019 Influenza Virus Vaccine, Quadrivalent, Im Use Vital Signs Date Vital Result Comment 09/17/2023 2:05pm BP Systolic 140 mmHg BP Diastolic 80 mmHg BP Systolic Recheck 136 mmHg BP Diastolic Recheck 80 mmHg Body Temperature 97.6 F Heart Rate 88 /min Respiratory Rate 18 /min Weight 150.25 lb Weight 68.153 kg Height 61 inches 5'1" BMI (Body Mass Index) 28.4 kg/m2 [place] Body Weight 105 lb 08/20/2023 2:04pm BP Systolic 144 mmHg BP Diastolic 78 mmHg Body Temperature 97.6 F Heart Rate 90 /min Respiratory Rate 18 /min Weight 148.00 lb Weight 67.133 kg Height 61 inches 5'1" BMI (Body Mass Index) 28.0 kg/m2 [place] Body Weight 105 lb Results Test Acquired Date Facility Test Result H/L Range N ote Comp. Met 07/04/2023 [facility]. [address] [place] [address] [phone] Glucose 99 mg/dL 70-110 BUN 23 mg/dL [...] 56 ML/MIN/1.73SQM Low >60 CBC W/Diff 07/04/2023 [facility]. [address] [place], [place] [id number] [phone] WBC 11.3 10^3/M3 High 3.1-9.2 RBC 4.71 10^6/M3 3.70-5.50 HGB 13.2 GR/DL 11.5-16.1 HCT 40.1 % 34.5-47.8 MCV 85.1 CUMICR 82.6-95.8 MCH 28.0 PICOGR 27.9-32.9 MCHC 32.9 % 32.6-35.4 RDW 14.8 % High 11.4-14.6 PLT 323 10^3/M3 140-350 MPV 9.2 CUMICR 7.0-10.6 %Neut 66.0 % 40.0-75.0 %Lymph 26.4 % 17.0-45.0 %[place] 5.5 % 1.0-11.0 %Eos 1.5 % 0.0-6.0 %Baso 0.6 % 0.0-2.0 #Neut 7.5 10^3/M3 1.5-8.0 #Lymph 3.0 10^3/M3 0.8-3.2 #[place] 0.6 10^3/M3 0.0-0.8 #Eos 0.2 10^3/m3 0.0-0.4 #[place] 0.1 10^3/m3 0.0-0.2 Lipid 05/04/2023 [facility]. [address] [place] [address] [phone] Cholesterol 157 mg/dL 0-200 1, 2 Triglyceride 88 mg/dL 0-150 3 HDLD 43 mg/dL See Comment 4 Measured LDL 95 mg/dL 0-130 5 Calc VLDL 17.6 mg/dL See Comment 6 Chol/HDL 3.7 RATIO See Comment 7 Non-HDL 114 mg/dL See Comment 8 Comp. Met 05/04/2023 [facility]. [address] [place] [address] [phone] Glucose 105 mg/dL 70-110 BUN 22 mg/dL [...] ML/MIN/1.73SQM Low >60 Laboratory test finding 05/04/2023 [facility]. [address] [place] [address] [phone] Vitd-25Oh 23 ng/mL Low 30-100 1 FASTING [...] LDL Target Procedures Date Code Description Status 09/17/2023 3079F PVRP Diastolic BP 80-89 MMHG Completed 09/17/2023 3075F PVRP Systolic BP 130 To 139 MMHG Completed 07/04/2023 16184 Venipuncture Routine Complet ed 05/17/2023 3079F PVRP Diastolic BP 80-89 MMHG Completed 05/17/2023 3077F PVRP Systolic BP >/= 140 MMH G Completed 05/04/2023 07775 Venipuncture Routine [facility] ed 04/13/2022 [id number] Mammogram Completed 02/25/2018 [id number] Bone Mineral Density Test Co mpleted Medical Devices Description No Information Available Encounters Type Date Location Provider Dx Diagnosis Office Visit 09/17/2023 [facility] I70.0 Atherosclerosis of aorta G31.84 Mild cognitive impai rment of uncertain or unknown etiology I10 Essential (primary) hypertension E78.5 Hyperlipidemia, unsp ecified J44.9 Chronic obstructive pulmonary disease, unspecified N64.59 Other signs and symp toms in breast Office Visit 08/20/2023 11:15a [facility] PA-C N39.42 Incontinence without sensory awareness Office Visit 07/04/2023 2:00p [facility] Nadir N. Sm ith, DO R10.13 Epigastric pain Office Visit 05/17/2023 3:00p [facility] PA-C G31.84 Mild cognitive impairment of uncertain or unknown etiology I10 Essential (primary) hypertension I70.0 Atherosclerosis of a wilfrido Assessments Date Code Description Provider 09/17/2023 I70.0 Atherosclerosis of aorta [place] EDWARDO StrattonC 09/17/2023 G31.84 Mild cognitive i mpairment of uncertain or unknown etiology GUERRERO Carter-C 09/17/2023 I10 Essential (primary) hyperten tish GUERRERO Carter-C 09/17/2023 E78.5 Hyperlipidemia, unspecified Rosamaria [facility], PA-C 09/17/2023 J44.9 Chronic obstruct torres pulmonary disease, unspecified Rosamaria Crowley, GUERRERO-C 09/17/2023 N64.59 Other signs and symptoms in breast EDWARDO CarterC 08/20/2023 N39.42 Incontinence without sensory awareness EDWARDO BergmanC 07/04/2023 R10.13 Epigastric pain Nadir N. Smi th, DO 05/17/2023 G31.84 Mild cognitive i mpairment of uncertain or unknown etiology EDWARDO CarterC 05/17/2023 I10 Essential (primary) hyperten tish Rosamaria GUERRERO Crowley-C 05/17/2023 I70.0 Atherosclerosis of aorta [place] GUERRERO Stratton-C 05/04/2023 I10 Essential (primary) hyperten tish Zach N [place], DO 05/04/2023 I10 Essential (primary) hyperten tish Lab - [facility] 05/04/2023 M81.0 Age-related oste oporosis without current pathological fracture Zach Ledbetter DO Plan of Treatment Future Appointment(s):* 03/24/2024 1:30 pm - Rosamaria Crowley PA-C at [facility] * 03/18/2024 10:15 am - [facility] Functional Status Description No Information Available Mental Status Description No Information Available Referrals Description No Information Available
--- OUTSIDE RECORDS SUMMARY | 2023-12-13 03:24 | External Medical Summary | Continuity of Care Document ---
Author Name ROSAMARIA CROWLEY Address [address] [place] [address] Phone [phone] Organization [facility] Address [address] [place] [address] Phone [phone] Care Team Providers Care Helper/Driver Name Role Phone technology recruiter Associates [facility] - Female Pelvic Medicine and Reconstructive Surgery Care Team Information Garment Alteration Examiner [phone] [place], Located Within [facility] [place] Care Team Information Re ceiver [phone] Tracie Lorenzo MD Care Team Information Garment Alteration Examiner [phone] Problems Active Problems Provider Date Chronic obstructive [...] day 90Tablet N39.42 Madina Larson MD 08/20/[address] take 1 by mouth every day for 6 weeks 42caps R10.13 Nadir Sosa, 07/04/2023 Yzcmshfkmh42cx Tablets take 1 tablet by mouth twice a day as needed for acid reflux 60Tablet R10.13 Madina Larson MD 02/27/2023 Donepezil CAM59ss Tablets 1 tablets daily by mouth 30tabs G31.84 Zach Ledbetter, DO 01/26/2023 Anoro Tkmbrqj25.5-25mcg/Act Aerosol 1 puff every day 60units J44.9 Zach Ever Ledbetter, DO 09/07/2022 Ipzsuomf377xu Tablets Take 1 Tablet Twice Daily With Meals 30tabs Zach Ledbetter, DO 07/10/2022 Airs Pediatric Aerosol MaskMisc use with nebulizer 1units Zach Ledbetter, DO 07/09/2021 Nebulizer Kit/Tubing/MouthpieceK it use with nebulizer needs mask 2units J44.9 Zach Ledbetter, DO 06/16/2021 Amlodipine Nqnznlrl2pv Tablets Take 1 Tablet By Mouth Daily 30tabs I10 Zachstaci Ledbetter, DO 10/09/2019 Ipratropium [place]/Albuterol Sulfate0.5-2.5(3)mg/3M L Solution inhale 3 milliliters via nebulizer every 4 hours as needed (shortness of breath). 360ml J44.9 Zach Ledbetter, DO 07/11/2019 NebulizerDevice use as directed. 1units J44.9 Dom staci Ledbetter, DO 07/11/2019 Proair DAF103(90Base) mcg/Act Aerosol 2 puffs every 4-6 hours as needed 25.5gm R06.02 Zach Ledbetter, DO 04/28/2019 Tramadol FIP03un Tablets 1 by mouth three times a day as needed pain Parag ZAVALA, Dwaine Martines [facility] Calcium 600 & Vitamin S0139-321lt-Vezy Tablets take 1 tablet by mouth twice a day Unknown [facility] Vitamin [id number] Tablets 1 by mouth every day Unknown History Medications Sbpynrmk470lt Capsules take one capsule by mouth twice daily for 3 days. 6caps N39.42 Madina Larson MD 08/20/2023 - 08/23/2023 Immunizations CPT Code Status Date Vaccine Lot # [id number] Given 11/21/2021 Pfizer Sars-Cov -2 (Cov-19) vacc 30mcg/0.3ML 12Y+ EMR Doc Only 27083 Given 08/16/2021 Influenza Vaccine High Do se 0.5ML Age 65 & > 92142 Given 01/31/2021 Pfizer Sars-Cov -2 (Cov-19) vacc 30mcg/0.3ML 12Y+ EMR Doc Only 98199 Given 01/02/2021 Pfizer Sars-Cov -2 (Cov-19) vacc 30mcg/0.3ML 12Y+ EMR Doc Only 47939 Given 11/01/2020 Shingrix 44937 Given 07/28/2020 Shingrix 67223 Given 07/28/2020 Influenza Vaccine High Do se 0.5ML Age 65 & > 90550 Given 08/14/2019 Influenza Vacci ne, Inactivated, Subunit, Adjuvanted, For Intrm[facility] 240389 81024 Given 12/01/2014 Pneumococcal Conjugate-Pr evnar 13 71953 Given 08/18/2009 Pneumococcal Vaccine/Pneu movax 23 24676 Refused 01/11/2021 Tdap (Tetanus, diphtheria & acel. pertussis) Adacel or Boostrix 67365 Refused 06/02/2019 Influenza Virus Vaccine, Quadrivalent, Im Use Vital Signs Date Vital Result Comment 09/17/2023 2:05pm BP Systolic 140 mmHg BP Diastolic 80 mmHg BP Systolic Recheck 136 mmHg BP Diastolic Recheck 80 mmHg Body Temperature 97.6 F Heart Rate 88 /min Respiratory Rate 18 /min Weight 150.25 lb Weight 68.153 kg Height 61 inches 5'1" BMI (Body Mass Index) 28.4 kg/m2 [place] Body Weight 105 lb 08/20/2023 2:04pm BP Systolic 144 mmHg BP Diastolic 78 mmHg Body Temperature 97.6 F Heart Rate 90 /min Respiratory Rate 18 /min Weight 148.00 lb Weight 67.133 kg Height 61 inches 5'1" BMI (Body Mass Index) 28.0 kg/m2 [place] Body Weight 105 lb Results Test Acquired Date Facility Test Result H/L Range N ote Comp. Met 07/04/2023 [facility] [address] [place] [address] [phone] Glucose 99 mg/dL 70-110 BUN 23 mg/dL [...] 56 ML/MIN/1.73SQM Low >60 CBC W/Diff 07/04/2023 [facility] [address] [place], [place] [address] [phone] WBC 11.3 10^3/M3 High 3.1-9.2 RBC 4.71 10^6/M3 3.70-5.50 HGB 13.2 GR/DL 11.5-16.1 HCT 40.1 % 34.5-47.8 MCV 85.1 CUMICR 82.6-95.8 MCH 28.0 PICOGR 27.9-32.9 MCHC 32.9 % 32.6-35.4 RDW 14.8 % High 11.4-14.6 PLT 323 10^3/M3 140-350 MPV 9.2 CUMICR 7.0-10.6 %Neut 66.0 % 40.0-75.0 %Lymph 26.4 % 17.0-45.0 %[place] 5.5 % 1.0-11.0 %Eos 1.5 % 0.0-6.0 %Baso 0.6 % 0.0-2.0 #Neut 7.5 10^3/M3 1.5-8.0 #Lymph 3.0 10^3/M3 0.8-3.2 #[place] 0.6 10^3/M3 0.0-0.8 #Eos 0.2 10^3/m3 0.0-0.4 #Baso 0.1 10^3/m3 0.0-0.2 Lipid 05/04/2023 [facility] [address] [place] [address] [phone] Cholesterol 157 mg/dL 0-200 1, 2 Triglyceride 88 mg/dL 0-150 3 HDLD 43 mg/dL See Comment 4 Measured LDL 95 mg/dL 0-130 5 Calc VLDL 17.6 mg/dL See Comment 6 Chol/HDL 3.7 RATIO See Comment 7 Non-HDL 114 mg/dL See Comment 8 Comp. Met 05/04/2023 [facility] [address] [place] [address] [phone] Glucose 105 mg/dL 70-110 BUN 22 mg/dL [...] ML/MIN/1.73SQM Low >60 Laboratory test finding 05/04/2023 [facility] [address] [place] [address] [phone] Vitd-25Oh 23 ng/mL Low 30-100 1 FASTING [...] BP 130 To 139 MMHG Completed 07/04/2023 72527 Venipuncture Routine Complet ed 05/17/2023 3079F PVRP Diastolic BP 80-89 MMHG Completed 05/17/2023 3077F PVRP Systolic BP >/= 140 MMH G Completed 05/04/2023 44963 Venipuncture Routine [facility] ed 04/13/2022 [id number] Mammogram Completed 02/25/2018 [id number] Bone Mineral Density Test Co mpleted Medical Devices Description No Information Available Encounters Type Date Location Provider Dx Diagnosis Office Visit [facility] I70.0 Atherosclerosis of aorta G31.84 Mild cognitive impai rment of uncertain or unknown etiology I10 Essential (primary) hypertension E78.5 Hyperlipidemia, unsp ecified J44.9 Chronic obstructive pulmonary disease, unspecified N64.59 Other signs and symp toms in breast Office Visit 08/20/2023 11[facility] N39.42 Incontinence without sensory awareness Office Visit 07/04/2023 2:00p [facility] Nadir N. Sm ith, DO R10.13 Epigastric pain Office Visit 05/17/2023 3:[facility]p [facility] G31.84 Mild cognitive impairment of [...] I10 Essential (primary) hyperten tish Zach N [place], DO 05/04/2023 I10 Essential (primary) hyperten tish Lab - [facility] 05/04/2023 M81.0 Age-related oste oporosis without current pathological fracture Zach Ledbetter DO Plan of Treatment Future Appointment(s):* 03/24/2024 1:30 pm - Rosamaria Crowley PA-C at [facility] * 03/18/2024 10:15 am - [facility] - [facility] Functional Status Description No Information Available Mental Status Description No Information Available Referrals Description No Information Available
--- OUTSIDE RECORDS SUMMARY | 2023-12-13 03:24 | External Medical Summary | Continuity of Care Document ---
Author Name DUANE SOSA Ever Address [address] [place] [address] Phone [phone] Organization [facility] Address [address] [place] [address] Phone [phone] Care Team Providers Care Inking Machine Tender Name Role Phone quartz cutter Associates [facility] - Female Pelvic Medicine and Reconstructive Surgery Care Team Information Aircraft Sales Representative [phone] [facility] [place] Care Team Information Re ceiver [phone] Tracie Lorenzo MD Care Team Information Aircraft Sales Representative [phone] Problems Active Problems Provider Date Chronic obstructive lung disease Lexa Angeles PA-C Onset: 08/28/2019 Essential hypertension Zach Ever Ledbetter DO Onse t: 06/10/2019 Hyperlipidemia Lexa Angeles [...] Smokes 1-5 Cigarettes Daily Smoking Status Reviewed: 07/04/23 Currently Smo kes 1-5 Cigarettes Daily Tobacco [...] SIG Qnty Indications Order ing Provider Date Colheopvlf38sd Capsules DR 1 by mouth every day for 6 weeks 42caps R10.13 Duane Sosa, DO 07/04/2023 Tizanidine HCL2mg Tablets 1-2 tablets by mouth at bedtime 14tabs R25.2 Madina Larson MD 02/27/2023 Wenpfocjcr47rl Tablets take 1 tablet by mouth twice a day as needed for acid reflux 60Tablet R10.13 Madina Larson MD 02/27/2023 Donepezil DBP54cq Tablets 1 tablets daily by mouth 30tabs G31.84 Zach Ever Ledbetter, DO 01/26/2023 Anoro Leptbnt57.5-25mcg/Act Aerosol 1 puff every day 60units J44.9 Zach Ever Ledbetter, DO 09/07/2022 Gbtyiias295or Tablets Take 1 Tablet Twice Daily With Meals 30tabs Zach Ledbetter, DO 07/10/2022 Airs Pediatric Aerosol MaskMisc use with nebulizer 1units Zach Ever Ledbetter, DO 07/09/2021 Nebulizer Kit/Tubing/MouthpieceK it use with nebulizer needs mask 2units J44.9 Zach Ledbetter, DO 06/16/2021 Amlodipine Fhktdfuw5yf Tablets Take 1 Tablet By Mouth Daily 30tabs I10 Zachstaci Ledbetter, DO 10/09/2019 Ipratropium [place]/Albuterol Sulfate0.5-2.5(3)mg/3M L Solution inhale 3 milliliters via nebulizer every 4 hours as needed (shortness of breath). 360ml J44.9 Zach Ledbetter, DO 07/11/2019 NebulizerDevice use as directed. 1units J44.9 Dom staci Ledbetter, DO 07/11/2019 Proair WWM051(90Base) mcg/Act Aerosol 2 puffs every 4-6 hours as needed 25.5gm R06.02 Zach Ledbetter, DO 04/28/2019 Tramadol SWM91tb Tablets 1 by mouth three times a day as needed pain Parag ZAVALA, Dwaine Martines [facility] Calcium 600 & Vitamin G9994-370ki-Plco Tablets take 1 tablet by mouth twice a day Unknown [facility] Vitamin D433455uqh Tablets 1 by mouth every day Unknown Immunizations CPT Code Status Date Vaccine Lot # [id number] Given 11/21/2021 Pfizer Sars-Cov -2 (Covid-19) vaccine, 30mcg/0.3ML 12Y+ 62900 Given 08/16/2021 Influenza Vaccine High Do se 0.5ML 80769 Given 01/31/2021 Pfizer Sars-Cov -2 (Covid-19) vaccine, 30mcg/0.3ML 12Y+ 29670 Given 01/02/2021 Pfizer Sars-Cov -2 (Covid-19) vaccine, 30mcg/0.3ML 12Y+ 18873 Given 11/01/2020 Shingrix 92728 Given 07/28/2020 Shingrix 19433 Given 07/28/2020 Influenza Vaccine High Do se 0.5ML 74243 Given 08/14/2019 Influenza Vacci ne, Inactivated, Subunit, Adjuvanted, For [facility] [id number] 07716 Given 12/01/2014 Pneumococcal Conjugate-Pr evnar 13 30682 Given 08/18/2009 Pneumococcal Vaccine/Pneu movax 23 97205 Refused 01/11/2021 Tdap (Tetanus, diphtheria & acel. pertussis) Adacel or Boostrix 35840 Refused 06/02/2019 Influenza Virus Vaccine, Quadrivalent, Im Use Vital Signs Date Vital Result Comment 07/04/2023 12:58pm BP Systolic 148 mmHg BP Diastolic 66 mmHg Body Temperature 97.8 F Heart Rate 63 /min Respiratory Rate 18 /min Weight 146.12 lb Weight 66.282 kg Height 61 inches 5'1" BMI (Body Mass Index) 27.6 kg/m2 O2 % BldC Oximetry 94 % [place] Body Weight 105 lb 05/17/2023 3:05pm BP Systolic 176 mmHg BP Diastolic 80 mmHg Body Temperature 97.9 F Heart Rate 76 /min Respiratory Rate 18 /min Weight 152.00 lb Weight 68.947 kg Height 61 inches 5'1" BMI (Body Mass Index) 28.7 kg/m2 [place] Body Weight 105 lb Results Test Acquired Date Facility Test Result H/L Range N ote Comp. Met 07/04/2023 [facility]. [address] [place] [address] [phone] Glucose 99 mg/dL 70-110 BUN 23 mg/dL [...] 56 ML/MIN/1.73SQM Low >60 CBC W/Diff 07/04/2023 [facility] [address] [place], [place] [address] [phone] WBC 11.3 10^3/M3 High 3.1-9.2 RBC 4.71 10^6/M3 3.70-5.50 HGB 13.2 GR/DL 11.5-16.1 HCT 40.1 % 34.5-47.8 MCV 85.1 CUMICR 82.6-95.8 MCH 28.0 PICOGR 27.9-32.9 MCHC 32.9 % 32.6-35.4 RDW 14.8 % High 11.4-14.6 PLT 323 10^3/M3 140-350 MPV 9.2 CUMICR 7.0-10.6 %Neut 66.0 % 40.0-75.0 %Lymph 26.4 % 17.0-45.0 %[place] 5.5 % 1.0-11.0 %Eos 1.5 % 0.0-6.0 %Baso 0.6 % 0.0-2.0 #Neut 7.5 10^3/M3 1.5-8.0 #Lymph 3.0 10^3/M3 0.8-3.2 #[place] 0.6 10^3/M3 0.0-0.8 #Eos 0.2 10^3/m3 0.0-0.4 #Baso 0.1 10^3/m3 0.0-0.2 Lipid 05/04/2023 [facility]. [address] [place] [address] [phone] Cholesterol 157 mg/dL 0-200 1, 2 Triglyceride 88 mg/dL 0-150 3 HDLD 43 mg/dL See Comment 4 Measured LDL 95 mg/dL 0-130 5 Calc VLDL 17.6 mg/dL See Comment 6 Chol/HDL 3.7 RATIO See Comment 7 Non-HDL 114 mg/dL See Comment 8 Comp. Met 05/04/2023 [facility]. [address] [place], [place] [address] [phone] Glucose 105 mg/dL 70-110 BUN 22 mg/dL [...] ML/MIN/1.73SQM Low >60 Laboratory test finding 05/04/2023 [facility]. [address] [place], [place] [address] [phone] Vitd-25Oh 23 ng/mL Low 30-100 1 FASTING [...] Target Procedures Date Code Description Status 07/04/2023 50091 Venipuncture Routine [facility] ed 05/17/2023 3079F PVRP Diastolic BP 80-89 MMHG Completed 05/17/2023 3077F PVRP Systolic BP >/= 140 MMH G Completed 05/04/2023 94323 Venipuncture Routine [facility] ed 01/26/2023 3078F PVRP Diastolic BP <80 mmHg C ompleted 01/26/2023 3075F PVRP Systolic BP 130 To 139 MMHG Completed 01/26/2023 1101F PT SCR Future Fall Risk, No Fall Or 1 W/Out Injury Completed 04/13/2022 [id number] Mammogram Completed 02/25/2018 [id number] Bone Mineral Density Test Co mpleted Medical Devices Description No Information Available Encounters Type Date Location Provider Dx Diagnosis Office Visit 07/04/2023 2:00p Natty Sosa DO R10.13 Epigastric pa in Office Visit 05/17/2023 3:00p [facility] Rosamaria Day PA-C G31.84 Mild cognitive impairment of uncertain or unknown etiology I10 Essential (primary) hypertension I70.0 Atherosclerosis of a wilfrido Office Visit 02/27/2023 9:15a [facility] Alexandra rausch PA-C R25.2 Cramp and spasm R10.13 Epigastric pain Office Visit 01/26/2023 1:30p [facility] Rosamaria reed PA-C Z00.00 Encntr for general adult medical exam w/o abnormal findings G31.84 Mild cognitive impai rment of uncertain or unknown etiology I10 Essential (primary) hypertension E78.5 Hyperlipidemia, unsp ecified J44.9 Chronic obstructive pulmonary disease, unspecified Assessments Date Code Description Provider 07/04/2023 R10.13 Epigastric pain Duane Deborah vIy , DO 05/17/2023 G31.84 Mild cognitive i mpairment of uncertain or unknown etiology Rosamaria Day PA-C 05/17/2023 I10 Essential (primary) hyperten tish Rosamaria Day PA-C 05/17/2023 I70.0 Atherosclerosis of aorta Crescencio Day PA-C 05/04/2023 I10 Essential (primary) hyperten tish Zach Ever Ledbetter, DO 05/04/2023 I10 Essential (primary) hyperten tish Lab [facility] 05/04/2023 M81.0 Age-related oste oporosis without current pathological fracture Zach Ledbetter, DO 02/27/2023 R25.2 Cramp and spasm Alexandra cui PA-C 02/27/2023 R10.13 Epigastric pain Alexandra cui PA-C 01/26/2023 Z00.00 Encounter for ge neral adult medical examination without abnormal findings Rosamaria Day PA-C 01/26/2023 G31.84 Mild cognitive i mpairment of uncertain or unknown etiology Rosamaria Day PA-C 01/26/2023 I10 Essential (primary) hyperten tish Rosamaria Day PA-C 01/26/2023 E78.5 Hyperlipidemia, unspecified Rosamaria Day PA-C 01/26/2023 J44.9 Chronic obstruct torres pulmonary disease, unspecified Rosamaria Day PA-C Plan of Treatment Future Appointment(s):* 09/17/2023 2:00 pm - Rosamaria Day PA-C at [facility] 07/04/2023 - Duane Sosa, * R10.13 Epigastric pain* New Medication:* Omeprazole 20 mg - 1 by mouth every day for 6 weeks * New Xrays:* CT Abdomen And Pelvis W Contrast, Ordered: 07/04/23 * Comments:* Symptoms consistent with GERD. She is already taking Famotidine. I recommend adding Omeprazole. Will get CT w/ contrast to r/o any anatomic abnormalities. Will get labs as well. Functional Status Description No Information Available Mental Status Description No Information Available Referrals Description No Information Available
--- OUTSIDE RECORDS SUMMARY | 2023-12-13 03:24 | External Medical Summary | Continuity of Care Document ---
Author Name DUANE SOSA Ever Address [address] [place] [address] Phone [phone] Organization [facility] Address [address] [place] [address] Phone [phone] Care Team Providers Care Doctor Of Podiatry Name Role Phone film critic Associates [facility] - Female Pelvic Medicine and Reconstructive Surgery Care Team Information Juvenile Probation Officer [phone] [facility] [place] Care Team Information Re ceiver [phone] Tracie Lorenzo MD Care Team Information Juvenile Probation Officer [phone] Problems Active Problems Provider Date Chronic obstructive [...] SIG Qnty Indications Order ing Provider Date Zebhqjeobk96uj Capsules DR 1 by mouth every day for 6 weeks 42caps R10.13 Duane Sosa, DO 07/04/2023 Tizanidine HCL2mg Tablets 1-2 tablets by mouth at bedtime 14tabs R25.2 Madina Larson MD 02/27/2023 Rrzakikzke24iv Tablets take 1 tablet by mouth twice a day as needed for acid reflux 60Tablet R10.13 Madina Larson MD 02/27/2023 Donepezil DVN84tz Tablets 1 tablets daily by mouth 30tabs G31.84 Zach Ever Ledbetter, DO 01/26/2023 Anoro Ezyvnxg72.5-25mcg/Act Aerosol 1 puff every day 60units J44.9 Zach Ever Ledbetter, DO 09/07/2022 Mkgiytht370aq Tablets Take 1 Tablet Twice Daily With Meals 30tabs Zach Ledbetter, DO 07/10/2022 Airs Pediatric Aerosol MaskMisc use with nebulizer 1units Zach Ever Ledbetter, DO 07/09/2021 Nebulizer Kit/Tubing/MouthpieceK it use with nebulizer needs mask 2units J44.9 Zach Ledbetter, DO 06/16/2021 Amlodipine Mncgheyo8zj Tablets Take 1 Tablet By Mouth Daily 30tabs I10 Zachstaci Ledbetter, DO 10/09/2019 Ipratropium [place]/Albuterol Sulfate0.5-2.5(3)mg/3M L Solution inhale 3 milliliters via nebulizer every 4 hours as needed (shortness of breath). 360ml J44.9 Zach Ledbetter, DO 07/11/2019 NebulizerDevice use as directed. 1units J44.9 Dom staci Ledbetter, DO 07/11/2019 Proair VRM518(90Base) mcg/Act Aerosol 2 puffs every 4-6 hours as needed 25.5gm R06.02 Zach Ledbetter, DO 04/28/2019 Tramadol QVJ79cg Tablets 1 by mouth three times a day as needed pain Parag ZAVALA, Dwaine Martines [facility] Calcium 600 & Vitamin Q6158-182rd-Vent Tablets take 1 tablet by mouth twice a day Unknown [facility] Vitamin [id number] Tablets 1 by mouth every day Unknown Immunizations CPT Code Status Date Vaccine Lot # [id number] Given 11/21/2021 Pfizer Sars-Cov -2 (Cov-19) vacc 30mcg/0.3ML 12Y+ EMR Doc Only 16581 Given 08/16/2021 Influenza Vaccine High Do se 0.5ML 81049 Given 01/31/2021 Pfizer Sars-Cov -2 (Cov-19) vacc 30mcg/0.3ML 12Y+ EMR Doc Only 46759 Given 01/02/2021 Pfizer Sars-Cov -2 (Cov-19) vacc 30mcg/0.3ML 12Y+ EMR Doc Only 85848 Given 11/01/2020 Shingrix 08876 Given 07/28/2020 Shingrix 07522 Given 07/28/2020 Influenza Vaccine High Do se 0.5ML 41402 Given 08/14/2019 Influenza Vacci ne, Inactivated, Subunit, Adjuvanted, For [facility] [id number] 35423 Given 12/01/2014 Pneumococcal Conjugate-Pr evnar 13 71993 Given 08/18/2009 Pneumococcal Vaccine/Pneu movax 23 64988 Refused 01/11/2021 Tdap (Tetanus, diphtheria & acel. pertussis) Adacel or Boostrix 71524 Refused 06/02/2019 Influenza Virus Vaccine, Quadrivalent, Im Use Vital Signs Date Vital Result Comment 07/04/2023 12:58pm BP Systolic 148 mmHg BP Diastolic 66 mmHg Body Temperature 97.8 F Heart Rate 63 /min Respiratory Rate 18 /min Weight 146.12 lb Weight 66.282 kg Height 61 inches 5'1" BMI (Body Mass Index) 27.6 kg/m2 O2 % BldC Oximetry 94 % [place] Body Weight 105 lb 05/17/2023 3:05pm BP Systolic 176 mmHg BP Diastolic 80 mmHg Body Temperature 97.9 F Heart Rate 76 /min Respiratory Rate 18 /min Weight 152.00 lb Weight 68.947 kg Height 61 inches 5'1" BMI (Body Mass Index) 28.7 kg/m2 [place] Body Weight 105 lb Results Test Acquired Date Facility Test Result H/L Range N ote Comp. Met 07/04/2023 [facility]. [address] [place] [address] [phone] Glucose 99 mg/dL 70-110 BUN 23 mg/dL [...] 56 ML/MIN/1.73SQM Low >60 CBC W/Diff 07/04/2023 [facility]. [address] [place], [place] [address] [phone] WBC 11.3 10^3/M3 High 3.1-9.2 RBC 4.71 10^6/M3 3.70-5.50 HGB 13.2 GR/DL 11.5-16.1 HCT 40.1 % 34.5-47.8 MCV 85.1 CUMICR 82.6-95.8 MCH 28.0 PICOGR 27.9-32.9 MCHC 32.9 % 32.6-35.4 RDW 14.8 % High 11.4-14.6 PLT 323 10^3/M3 140-350 MPV 9.2 CUMICR 7.0-10.6 %Neut 66.0 % 40.0-75.0 %Lymph 26.4 % 17.0-45.0 %[place] 5.5 % 1.0-11.0 %Eos 1.5 % 0.0-6.0 %Baso 0.6 % 0.0-2.0 #Neut 7.5 10^3/M3 1.5-8.0 #Lymph 3.0 10^3/M3 0.8-3.2 #Bond 0.6 10^3/M3 0.0-0.8 #Eos 0.2 10^3/m3 0.0-0.4 #Baso 0.1 10^3/m3 0.0-0.2 Lipid 05/04/2023 [facility]. [address] [place] [address] [phone] Cholesterol 157 mg/dL 0-200 1, 2 Triglyceride 88 mg/dL 0-150 3 HDLD 43 mg/dL See Comment 4 Measured LDL 95 mg/dL 0-130 5 Calc VLDL 17.6 mg/dL See Comment 6 Chol/HDL 3.7 RATIO See Comment 7 Non-HDL 114 mg/dL See Comment 8 Comp. Met 05/04/2023 [facility]. [address] [place] [address] [phone] Glucose 105 mg/dL 70-110 BUN 22 mg/dL [...] ML/MIN/1.73SQM Low >60 Laboratory test finding 05/04/2023 [facility]. [address] [place], [place] [address] [phone] Vitd-25Oh 23 ng/mL Low 30-100 1 FASTING [...] Target Procedures Date Code Description Status 07/04/2023 32716 Venipuncture Routine [facility] ed 05/17/2023 3079F PVRP Diastolic BP 80-89 MMHG Completed 05/17/2023 3077F PVRP Systolic BP >/= 140 MMH G Completed 05/04/2023 13610 Venipuncture Routine [facility] ed 01/26/2023 3078F PVRP Diastolic BP <80 mmHg C ompleted 01/26/2023 3075F PVRP Systolic BP 130 To 139 MMHG Completed 01/26/2023 1101F PT SCR Future Fall Risk, No Fall Or 1 W/Out Injury Completed 04/13/2022 [id number] Mammogram Completed 02/25/2018 [id number] Bone Mineral Density Test Co mpleted Medical Devices Description No Information Available Encounters Type Date Location Provider Dx Diagnosis Office Visit 07/04/2023 2:00p Natty Sosa DO R10.13 Epigastric pa in Office Visit 05/17/2023 3:00p [facility] Rosamaria Day PA-C G31.84 Mild cognitive impairment of uncertain or unknown etiology I10 Essential (primary) hypertension I70.0 Atherosclerosis of a wilfrido Office Visit 02/27/2023 9:15a [facility] Alexandra rausch PA-C R25.2 Cramp and spasm R10.13 Epigastric pain Office Visit 01/26/2023 1:30p [facility] Rosamaria reed PA-C Z00.00 Encntr for general adult medical exam w/o abnormal findings G31.84 Mild cognitive impai rment of uncertain or unknown etiology I10 Essential (primary) hypertension E78.5 Hyperlipidemia, unsp ecified J44.9 Chronic obstructive pulmonary disease, unspecified Assessments Date Code Description Provider 07/04/2023 R10.13 Epigastric pain Duane Deborah Ivy , DO 05/17/2023 G31.84 Mild cognitive i mpairment of uncertain or unknown etiology Rosamaria Day PA-C 05/17/2023 I10 Essential (primary) hyperten tish Rosamaria Day PA-C 05/17/2023 I70.0 Atherosclerosis of aorta Crescencio Day PA-C 05/04/2023 I10 Essential (primary) hyperten tish Zach Ever Ledbetter, DO 05/04/2023 I10 Essential (primary) hyperten tish Lab [facility] 05/04/2023 M81.0 Age-related oste oporosis without [...] 2:00 pm - Rosamaria Day PA-C at [facility] 07/04/2023 - Duane Sosa, * R10.13 Epigastric [...]
--- OUTSIDE RECORDS SUMMARY | 2023-12-13 03:24 | External Medical Summary | Continuity of Care Document ---
Author Name ROSAMARIA CROWLEY Address [address] [place] [address] Phone [phone] Organization [place] Address [address] [place] [address] Phone [phone] Care Team Providers Care Corporate Legal Intern Name Role Phone composition floor layer Associates [facility] - Female Pelvic Medicine and Reconstructive Surgery Care Team Information Boat Outfitting Supervisor [phone] Formerly [facility] Care Team Information Re ceiver [phone] Tracie Lorenzo MD Care Team Information Boat Outfitting Supervisor [phone] Problems Active Problems Provider Date Chronic obstructive [...] day 90Tablet N39.42 Madina Larson MD 08/20/[address] take 1 by mouth every day for 6 weeks 42caps R10.13 Nadir Sosa, 07/04/2023 Xambnnuftw47ik Tablets take 1 tablet by mouth twice a day as needed for acid reflux 60Tablet R10.13 Madina Larson MD 02/27/2023 Donepezil XQV52gl Tablets 1 tablets daily by mouth 30tabs G31.84 Zach Ledbetter, DO 01/26/2023 Anoro Xkegysd33.5-25mcg/Act Aerosol 1 puff every day 60units J44.9 Zach Ever Ledbetter, DO 09/07/2022 Hngvtdnf442oz Tablets Take 1 Tablet Twice Daily With Meals 30tabs Zach Ledbetter, DO 07/10/2022 Airs Pediatric Aerosol MaskMisc use with nebulizer 1units Zach Ledbetter, DO 07/09/2021 Nebulizer Kit/Tubing/MouthpieceK it use with nebulizer needs mask 2units J44.9 Zach Ledbetter, DO 06/16/2021 Amlodipine Wjphixvx4kc Tablets Take 1 Tablet By Mouth Daily 30tabs I10 Zachstaci Ledbetter, DO 10/09/2019 Ipratropium [place]/Albuterol Sulfate0.5-2.5(3)mg/3M L Solution inhale 3 milliliters via nebulizer every 4 hours as needed (shortness of breath). 360ml J44.9 Zach Ledbetter, DO 07/11/2019 NebulizerDevice use as directed. 1units J44.9 Dom staci Ledbetter, DO 07/11/2019 Proair PFJ994(90Base) mcg/Act Aerosol 2 puffs every 4-6 hours as needed 25.5gm R06.02 Zach Ledbetter, DO 04/28/2019 Tramadol SMH05rp Tablets 1 by mouth three times a day as needed pain Parag ZAVALA, Dwaine Martines [facility] Calcium 600 & Vitamin J5681-180kz-Oegc Tablets take 1 tablet by mouth twice a day Unknown [facility] Vitamin [id number] Tablets 1 by mouth every day Unknown History Medications Rjqmzgth629eo Capsules take one capsule by mouth twice daily for 3 days. 6caps N39.42 Madina Larson MD 08/20/2023 - 08/23/2023 Immunizations CPT Code Status Date Vaccine Lot # [id number] Given 11/21/2021 Pfizer Sars-Cov -2 (Cov-19) vacc 30mcg/0.3ML 12Y+ EMR Doc Only 59050 Given 08/16/2021 Influenza Vaccine High Do se 0.5ML Age 65 & > 93617 Given 01/31/2021 Pfizer Sars-Cov -2 (Cov-19) vacc 30mcg/0.3ML 12Y+ EMR Doc Only 70032 Given 01/02/2021 Pfizer Sars-Cov -2 (Cov-19) vacc 30mcg/0.3ML 12Y+ EMR Doc Only 95260 Given 11/01/2020 Shingrix 24110 Given 07/28/2020 Shingrix 04395 Given 07/28/2020 Influenza Vaccine High Do se 0.5ML Age 65 & > 87109 Given 08/14/2019 Influenza Vacci ne, Inactivated, Subunit, Adjuvanted, For [facility] 245812 52919 Given 12/01/2014 Pneumococcal Conjugate-Pr evnar 13 10149 Given 08/18/2009 Pneumococcal Vaccine/Pneu movax 23 45994 Refused 01/11/2021 Tdap (Tetanus, diphtheria & acel. pertussis) Adacel or Boostrix 35492 Refused 06/02/2019 Influenza Virus Vaccine, Quadrivalent, Im Use Vital Signs Date Vital Result Comment 09/17/2023 2:05pm BP Systolic 140 mmHg BP Diastolic 80 mmHg BP Systolic Recheck 136 mmHg BP Diastolic Recheck 80 mmHg Body Temperature 97.6 F Heart Rate 88 /min Respiratory Rate 18 /min Weight 150.25 lb Weight 68.153 kg Height 61 inches 5'1" BMI (Body Mass Index) 28.4 kg/m2 [place] Body Weight 105 lb 08/20/2023 2:04pm BP Systolic 144 mmHg BP Diastolic 78 mmHg Body Temperature 97.6 F Heart Rate 90 /min Respiratory Rate 18 /min Weight 148.00 lb Weight 67.133 kg Height 61 inches 5'1" BMI (Body Mass Index) 28.0 kg/m2 [place] Body Weight 105 lb Results Test Acquired Date Facility Test Result H/L Range N ote Comp. Met 07/04/2023 [facility]. [address] [place] [address] [phone] Glucose 99 mg/dL 70-110 BUN 23 mg/dL [...] 56 ML/MIN/1.73SQM Low >60 CBC W/Diff 07/04/2023 [facility]. [address], [place] [id number] [phone] WBC 11.3 10^3/M3 High 3.1-9.2 RBC 4.71 10^6/M3 3.70-5.50 HGB 13.2 GR/DL 11.5-16.1 HCT 40.1 % 34.5-47.8 MCV 85.1 CUMICR 82.6-95.8 MCH 28.0 PICOGR 27.9-32.9 MCHC 32.9 % 32.6-35.4 RDW 14.8 % High 11.4-14.6 PLT 323 10^3/M3 140-350 MPV 9.2 CUMICR 7.0-10.6 %Neut 66.0 % 40.0-75.0 %Lymph 26.4 % 17.0-45.0 %[place] 5.5 % 1.0-11.0 %Eos 1.5 % 0.0-6.0 %Baso 0.6 % 0.0-2.0 #Neut 7.5 10^3/M3 1.5-8.0 #Lymph 3.0 10^3/M3 0.8-3.2 #[place] 0.6 10^3/M3 0.0-0.8 #Eos 0.2 10^3/m3 0.0-0.4 #Baso 0.1 10^3/m3 0.0-0.2 Lipid 05/04/2023 [facility]. [address] [place] [address] [phone] Cholesterol 157 mg/dL 0-200 1, 2 Triglyceride 88 mg/dL 0-150 3 HDLD 43 mg/dL See Comment 4 Measured LDL 95 mg/dL 0-130 5 Calc VLDL 17.6 mg/dL See Comment 6 Chol/HDL 3.7 RATIO See Comment 7 Non-HDL 114 mg/dL See Comment 8 Comp. Met 05/04/2023 [facility]. [address] [place] [address] [phone] Glucose 105 mg/dL 70-110 BUN 22 mg/dL [...] ML/MIN/1.73SQM Low >60 Laboratory test finding 05/04/2023 [facility]. [address] [place] [address] [phone] Vitd-25Oh 23 ng/mL Low 30-100 1 FASTING [...] BP 130 To 139 MMHG Completed 07/04/2023 63462 Venipuncture Routine Complet ed 05/17/2023 3079F PVRP Diastolic BP 80-89 MMHG Completed 05/17/2023 3077F PVRP Systolic BP >/= 140 MMH G Completed 05/04/2023 01825 Venipuncture Routine [facility] ed 04/13/2022 [id number] Mammogram Completed 02/25/2018 [id number] Bone Mineral Density Test Co mpleted Medical Devices Description No Information Available Encounters Type Date Location Provider Dx Diagnosis Office Visit 09/17/2023 2:00p [facility] I70.0 Atherosclerosis of aorta G31.84 Mild cognitive impai rment of uncertain or unknown etiology I10 Essential (primary) hypertension E78.5 Hyperlipidemia, unsp ecified J44.9 Chronic obstructive pulmonary disease, unspecified N64.59 Other signs and symp toms in breast Office Visit 08/20/2023 11:15a [facility] PA-C N39.42 Incontinence without sensory awareness Office Visit 07/04/2023 2:00p [place] Nadir N. Sm ith, DO R10.13 Epigastric pain Office Visit 05/17/2023 3:00p [facility] PA-C G31.84 Mild cognitive impairment of [...] I10 Essential (primary) hyperten tish Zach N Sidon, DO 05/04/2023 I10 Essential (primary) hyperten tish Lab - [place] 05/04/2023 M81.0 Age-related oste oporosis without current pathological fracture Zach Ledbetter DO Plan of Treatment Future Appointment(s):* 03/24/2024 1:30 pm - Rosamaria Crowley PA-C at [place] * 03/18/2024 10:15 am - [facility] [place] [facility] [place] Functional Status Description No Information Available Mental Status Description No Information Available Referrals Description No Information Available
--- OUTSIDE RECORDS SUMMARY | 2023-12-13 03:24 | External Medical Summary | Continuity of Care Document ---
Author Name ALEXANDRA HERCULES Address [address] [place] [address] Phone [phone] Organization [facility] Address [address] [place] [address] Phone [phone] Care Team Providers Care Jewelry Casting Model Maker Name Role Phone field project manager Associates [facility] - Female Pelvic Medicine and Reconstructive Surgery Care Team Information Social Welfare Research Worker [phone] Formerly [facility] Care Team Information Re ceiver [phone] Tracie Lorenzo MD Care Team Information Social Welfare Research Worker [phone] Problems Active Problems Provider Date Chronic obstructive [...] SIG Qnty Indications Order ing Provider Date Ofdoeuli594cs Capsules take one capsule by mouth twice daily for 3 days. 6caps N39.42 Madina Larson MD 08/20/2023 - 08/23/2023 Oxybutynin Chloride ER5mg Tablets ER 24HR 1 by mouth every day 90Tablet N39.42 Madina Larson MD 08/20/[address] 1 by mouth every day for 6 weeks 42caps R10.13 Nadir Sosa DO 07/04/2023 Tizanidine HCL2mg Tablets 1-2 tablets by mouth at bedtime 14tabs R25.2 Madina Larson MD 02/27/2023 Tjymwtwepv60az Tablets take 1 tablet by mouth twice a day as needed for acid reflux 60Tablet R10.13 Madina Larson MD 02/27/2023 Donepezil OVC67rf Tablets 1 tablets daily by mouth 30tabs G31.84 Zach Ledbetter DO 01/26/2023 Anoro Hxeibkg15.5-25mcg/Act Aerosol 1 puff every day 60units J44.9 Zach Ever Ledbetter, DO 09/07/2022 Eyiksfcg203lf Tablets Take 1 Tablet Twice Daily With Meals 30tabs Zach Ever Ledbetter, DO 07/10/2022 Airs Pediatric Aerosol MaskMisc use with nebulizer 1units Zach N Khloe, DO 07/09/2021 Nebulizer Kit/Tubing/MouthpieceK it use with nebulizer needs mask 2units J44.9 Zach N Khloe, DO 06/16/2021 Amlodipine Qhdzujso1iv Tablets Take 1 Tablet By Mouth Daily 30tabs I10 Zach N Khloe, DO 10/09/2019 Ipratropium [place]/Albuterol Sulfate0.5-2.5(3)mg/3M L Solution inhale 3 milliliters via nebulizer every 4 hours as needed (shortness of breath). 360ml J44.9 Zach N Khloe, DO 07/11/2019 NebulizerDevice use as directed. 1units J44.9 Dom staci Ledbetter, DO 07/11/2019 Proair GOT161(90Base) mcg/Act Aerosol 2 puffs every 4-6 hours as needed 25.5gm R06.02 Zach N Khloe, DO 04/28/2019 Tramadol VIC64fg Tablets 1 by mouth three times a day as needed pain Parag ZAVALA, Dwaine Martines [facility] Calcium 600 & Vitamin O4076-541bi-Nxpj Tablets take 1 tablet by mouth twice a day Unknown [facility] Vitamin [id number] Tablets 1 by mouth every day Unknown Immunizations CPT Code Status Date Vaccine Lot # [id number] Given 11/21/2021 Pfizer Sars-Cov -2 (Cov-19) vacc 30mcg/0.3ML 12Y+ EMR Doc Only 28044 Given 08/16/2021 Influenza Vaccine High Do se 0.5ML Age 65 & > 91561 Given 01/31/2021 Pfizer Sars-Cov -2 (Cov-19) vacc 30mcg/0.3ML 12Y+ EMR Doc Only 07088 Given 01/02/2021 Pfizer Sars-Cov -2 (Cov-19) vacc 30mcg/0.3ML 12Y+ EMR Doc Only 23782 Given 11/01/2020 Shingrix 16995 Given 07/28/2020 Shingrix 69529 Given 07/28/2020 Influenza Vaccine High Do se 0.5ML Age 65 & > 71931 Given 08/14/2019 Influenza Vacci ne, Inactivated, Subunit, Adjuvanted, For [facility] [id number] 41036 Given 12/01/2014 Pneumococcal Conjugate-Pr evnar 13 26381 Given 08/18/2009 Pneumococcal Vaccine/Pneu movax 23 19294 Refused 01/11/2021 Tdap (Tetanus, diphtheria & acel. pertussis) Adacel or Boostrix 43780 Refused 06/02/2019 Influenza Virus Vaccine, Quadrivalent, Im Use Vital Signs Date Vital Result Comment 08/20/2023 2:04pm BP Systolic 144 mmHg BP Diastolic 78 mmHg Body Temperature 97.6 F Heart Rate 90 /min Respiratory Rate 18 /min Weight 148.00 lb Weight 67.133 kg Height 61 inches 5'1" BMI (Body Mass Index) 28.0 kg/m2 [place] Body Weight 105 lb 07/04/2023 12:58pm BP Systolic 148 mmHg BP Diastolic 66 mmHg Body Temperature 97.8 F Heart Rate 63 /min Respiratory Rate 18 /min Weight 146.12 lb Weight 66.282 kg Height 61 inches 5'1" BMI (Body Mass Index) 27.6 kg/m2 O2 % BldC Oximetry 94 % [place] Body Weight 105 lb Results Test Acquired Date Facility Test Result H/L Range N ote Comp. Met 07/04/2023 [facility]. [address] [place] [address] [phone] Glucose 99 mg/dL 70-110 BUN 23 mg/dL [...] 56 ML/MIN/1.73SQM Low >60 CBC W/Diff 07/04/2023 [facility]. [address] [place] [address] [phone] WBC 11.3 10^3/M3 High 3.1-9.2 RBC 4.71 10^6/M3 3.70-5.50 HGB 13.2 GR/DL 11.5-16.1 HCT 40.1 % 34.5-47.8 MCV 85.1 CUMICR 82.6-95.8 MCH 28.0 PICOGR 27.9-32.9 MCHC 32.9 % 32.6-35.4 RDW 14.8 % High 11.4-14.6 PLT 323 10^3/M3 140-350 MPV 9.2 CUMICR 7.0-10.6 %Neut 66.0 % 40.0-75.0 %Lymph 26.4 % 17.0-45.0 %[place] 5.5 % 1.0-11.0 %Eos 1.5 % 0.0-6.0 %Baso 0.6 % 0.0-2.0 #Neut 7.5 10^3/M3 1.5-8.0 #Lymph 3.0 10^3/M3 0.8-3.2 #[place] 0.6 10^3/M3 0.0-0.8 #Eos 0.2 10^3/m3 0.0-0.4 #Baso 0.1 10^3/m3 0.0-0.2 Lipid 05/04/2023 [facility]. [address] [place] [address] [phone] Cholesterol 157 mg/dL 0-200 1, 2 Triglyceride 88 mg/dL 0-150 3 HDLD 43 mg/dL See Comment 4 Measured LDL 95 mg/dL 0-130 5 Calc VLDL 17.6 mg/dL See Comment 6 Chol/HDL 3.7 RATIO See Comment 7 Non-HDL 114 mg/dL See Comment 8 Comp. Met 05/04/2023 [facility]. [address] [place] [address] [phone] Glucose 105 mg/dL 70-110 BUN 22 mg/dL [...] ML/MIN/1.73SQM Low >60 Laboratory test finding 05/04/2023 [facility]. [address] [place] [address] [phone] Vitd-25Oh 23 ng/mL Low 30-100 1 FASTING [...] Target Procedures Date Code Description Status 07/04/2023 57782 Venipuncture Routine Complet ed 05/17/2023 3079F PVRP Diastolic BP 80-89 MMHG Completed 05/17/2023 3077F PVRP Systolic BP >/= 140 MMH G Completed 05/04/2023 62480 Venipuncture Routine Complet ed 04/13/2022 [id number] Mammogram Completed 02/25/2018 [id number] Bone Mineral Density Test Co mpleted Medical Devices Description No Information Available Encounters Type Date Location Provider Dx Diagnosis Office Visit 08/20/2023 11:15a [facility] Alexandra Hercules PA-C N39.42 Incontinence without sensory awareness Office Visit 07/04/2023 2:00p [facility] Nadir Sosa, DO R10.13 Epigastric pa in Office Visit 05/17/2023 3:00p [facility] Rosamaria Day PA-C G31.84 Mild cognitive impairment of uncertain or unknown etiology I10 Essential (primary) hypertension I70.0 Atherosclerosis of a wilfrido Office Visit 02/27/2023 9:15a [facility] Alexandra rausch PA-C R25.2 Cramp and spasm R10.13 Epigastric pain Assessments Date Code Description Provider 08/20/2023 N39.42 Incontinence without sensory awareness Alexandra Hercules PA-C 07/04/2023 R10.13 Epigastric pain Nadir mcmahon, 05/17/2023 G31.84 Mild cognitive i mpairment of uncertain or unknown etiology Rosamaria Day PA-C 05/17/2023 I10 Essential (primary) hyperten tish Rosamaria Day PA-C 05/17/2023 I70.0 Atherosclerosis of aorta Crescencio Day PA-C 05/04/2023 I10 Essential (primary) hyperten tish Zach Ever Ledbetter, 05/04/2023 I10 Essential (primary) hyperten tish Lab - [facility] 05/04/2023 M81.0 Age-related oste oporosis without current pathological fracture Zach Ledbetter, 02/27/2023 R25.2 Cramp and spasm Alexandra cui PA-C 02/27/2023 R10.13 Epigastric pain Alexandra cui PA-C Plan of Treatment Future Appointment(s):* 09/17/2023 2:00 pm - Rosamaria Day PA-C at [facility] 08/20/2023 - Alexandra Hercules PA-C* N39.42 Incontinence [...]
--- OUTSIDE RECORDS SUMMARY | 2023-12-13 03:25 | External Medical Summary ---
Author Name Unknown Address Unknown Organization [facility]:[address] [place] [address] Laboratory Report Ordering Provider Test Date Status DANETTE ZEPEDA 07/04/2023 13:26 Final Observation Date Value Abnormality Reference (Units ) Status WBC 07/05/2023 09:25 11.3 Above high normal 3.1-9.2 (10^3/M3) Final RBC 07/05/2023 09:25 4.71 3.70-5.50 (10^6/M3) Final Hemoglobin 07/05/2023 09:25 13.2 11.5-16.1 (GR/DL) Final HCT 07/05/2023 09:25 40.1 34.5-47.8 (%) Final MCV 07/05/2023 09:25 85.1 82.6-95.8 (CU MICR) Final MCH 07/05/2023 09:25 28.0 27.9-32.9 (OFELIA GR) Final MCHC 07/05/2023 09:25 32.9 32.6-35.4 (%) Final RDW 07/05/2023 09:25 14.8 Above high normal 11.4-14.6 (%) Final PLT 07/05/2023 09:25 323 140-350 (10^3/M3) Final MPV 07/05/2023 09:25 9.2 7.0-10.6 (CU MICR) Final Neutrophils/100 leukocytes in Blood 07/05/2023 09:25 66.0 40.0-75.0 (%) Final Lymphs % 07/05/2023 09:25 26.4 17.0-45.0 (%) Final Monos 07/05/2023 09:25 5.5 1.0-11.0 (%) Final %EOS 07/05/2023 09:25 1.5 0.0-6.0 (%) Final Basos 07/05/2023 09:25 0.6 0.0-2.0 (%) Final Neutrophils [#/volume] in [place] by Manual count 07/05/2023 09:25 7.5 1.5-8.0 (10^3/M3) Final Lymphs % 07/05/2023 09:25 3.0 0.8-3.2 (10^3/M3) Final Monos 07/05/2023 09:25 0.6 0.0-0.8 (10^3/M3) Final #EOS 07/05/2023 09:25 0.2 0.0-0.4 (10^3/m3) Final #BASO 07/05/2023 09:25 0.1 0.0-0.2 (10^3/m3) Final Performing Location [facility] [address] [place] [address]
--- OUTSIDE RECORDS SUMMARY | 2023-12-13 03:25 | External Medical Summary | Continuity of Care Document ---
Author Name DUANE SOSA Ever Address [address] [place] [address] Phone [phone] Organization [facility] Address [address] [place] [address] Phone [phone] Care Team Providers Care Stereo Compiler Name Role Phone test equipment mechanic Associates [facility] - Female Pelvic Medicine and Reconstructive Surgery Care Team Information Child Daycare Worker [phone] [facility] Care Team Information Re ceiver [phone] Tracie Lorenzo MD Care Team Information Child Daycare Worker [phone] Problems Active Problems Provider Date Chronic obstructive [...] SIG Qnty Indications Order ing Provider Date Edwvhrojaq31fk Capsules DR 1 by mouth every day for 6 weeks 42caps R10.13 Duane Sosa, DO 07/04/2023 Tizanidine HCL2mg Tablets 1-2 tablets by mouth at bedtime 14tabs R25.2 Madina Larson MD 02/27/2023 Zvydeqbnzr88ko Tablets take 1 tablet by mouth twice a day as needed for acid reflux 60Tablet R10.13 Madina Larson MD 02/27/2023 Donepezil XYY24ll Tablets 1 tablets daily by mouth 30tabs G31.84 Zach Ever Ledbetter, DO 01/26/2023 Anoro Nwxayag22.5-25mcg/Act Aerosol 1 puff every day 60units J44.9 Zach Ever Ledbetter, DO 09/07/2022 Zuorfqdw599gm Tablets Take 1 Tablet Twice Daily With Meals 30tabs Zach Ledbetetr, DO 07/10/2022 Airs Pediatric Aerosol MaskMisc use with nebulizer 1units Zach Ever Ledbetter, DO 07/09/2021 Nebulizer Kit/Tubing/MouthpieceK it use with nebulizer needs mask 2units J44.9 Zach Ledbetter, DO 06/16/2021 Amlodipine Qxdbmthq3ba Tablets Take 1 Tablet By Mouth Daily 30tabs I10 Zachstaci Ledbetter, DO 10/09/2019 Ipratropium [place]/Albuterol Sulfate0.5-2.5(3)mg/3M L Solution inhale 3 milliliters via nebulizer every 4 hours as needed (shortness of breath). 360ml J44.9 Zach Ledbetter, DO 07/11/2019 NebulizerDevice use as directed. 1units J44.9 Dom staci Ledbetter, DO 07/11/2019 Proair XSB459(90Base) mcg/Act Aerosol 2 puffs every 4-6 hours as needed 25.5gm R06.02 Zach Ledbetter, DO 04/28/2019 Tramadol WSE89xj Tablets 1 by mouth three times a day as needed pain Parag ZAVALA, Dwaine Martines [facility] Calcium 600 & Vitamin D7499-660an-Grlh Tablets take 1 tablet by mouth twice a day Unknown [facility] Vitamin C143325vmh Tablets 1 by mouth every day Unknown Immunizations CPT Code Status Date Vaccine Lot # [id number] Given 11/21/2021 Pfizer Sars-Cov -2 (Covid-19) vaccine, 30mcg/0.3ML 12Y+ 43174 Given 08/16/2021 Influenza Vaccine High Do se 0.5ML 75789 Given 01/31/2021 Pfizer Sars-Cov -2 (Covid-19) vaccine, 30mcg/0.3ML 12Y+ 02342 Given 01/02/2021 Pfizer Sars-Cov -2 (Covid-19) vaccine, 30mcg/0.3ML 12Y+ 94814 Given 11/01/2020 Shingrix 53373 Given 07/28/2020 Shingrix 75911 Given 07/28/2020 Influenza Vaccine High Do se 0.5ML 10648 Given 08/14/2019 Influenza Vacci ne, Inactivated, Subunit, Adjuvanted, For [facility] [id number] 80302 Given 12/01/2014 Pneumococcal Conjugate-Pr evnar 13 25619 Given 08/18/2009 Pneumococcal Vaccine/Pneu movax 23 47478 Refused 01/11/2021 Tdap (Tetanus, diphtheria & acel. pertussis) Adacel or Boostrix 51102 Refused 06/02/2019 Influenza Virus Vaccine, Quadrivalent, Im Use Vital Signs Date Vital Result Comment 07/04/2023 12:58pm BP Systolic 148 mmHg BP Diastolic 66 mmHg Body Temperature 97.8 F Heart Rate 63 /min Respiratory Rate 18 /min Weight 146.12 lb Weight 66.282 kg Height 61 inches 5'1" BMI (Body Mass Index) 27.6 kg/m2 O2 % BldC Oximetry 94 % [place] Body Weight 105 lb 05/17/2023 3:05pm BP Systolic 176 mmHg BP Diastolic 80 mmHg Body Temperature 97.9 F Heart Rate 76 /min Respiratory Rate 18 /min Weight 152.00 lb Weight 68.947 kg Height 61 inches 5'1" BMI (Body Mass Index) 28.7 kg/m2 [place] Body Weight 105 lb Results Test Acquired Date Facility Test Result H/L Range N ote Lipid 05/04/2023 [facility]. [address] [place] [address] [phone] Cholesterol 157 mg/dL 0-200 1, 2 Triglyceride 88 mg/dL 0-150 3 HDLD 43 mg/dL See Comment 4 Measured LDL 95 mg/dL 0-130 5 Calc VLDL 17.6 mg/dL See Comment 6 Chol/HDL 3.7 RATIO See Comment 7 Non-HDL 114 mg/dL See Comment 8 Comp. Met 05/04/2023 [facility]. [address] [place], [place] [id number] [phone] Glucose 105 mg/dL 70-110 BUN 22 mg/dL [...] ML/MIN/1.73SQM Low >60 Laboratory test finding 05/04/2023 [facility]. [address] [place] [address] [phone] Vitd-25Oh 23 ng/mL Low 30-100 1 FASTING [...] Target Procedures Date Code Description Status 07/04/2023 58709 Venipuncture Routine [facility] ed 05/17/2023 3079F PVRP Diastolic BP 80-89 MMHG Completed 05/17/2023 3077F PVRP Systolic BP >/= 140 MMH G Completed 05/04/2023 94668 Venipuncture Routine [facility] ed 01/26/2023 3078F PVRP Diastolic BP <80 mmHg C ompleted 01/26/2023 3075F PVRP Systolic BP 130 To 139 MMHG Completed 01/26/2023 1101F PT SCR Future Fall Risk, No Fall Or 1 W/Out Injury Completed 04/13/2022 [id number] Mammogram Completed 02/25/2018 [id number] Bone Mineral Density Test Co mpleted Medical Devices Description No Information Available Encounters Type Date Location Provider Dx Diagnosis Office Visit 07/04/2023 2:00p Natty Sosa DO R10.13 Epigastric pa in Office Visit 05/17/2023 3:00p Natty Day PA-C G31.84 Mild cognitive impairment of uncertain or unknown etiology I10 Essential (primary) hypertension I70.0 Atherosclerosis of a wilfrido Office Visit 02/27/2023 9:15a [facility] Alexandra rausch PA-C R25.2 Cramp and spasm R10.13 Epigastric pain Office Visit 01/26/2023 1:30p [facility] Rosamaria reed PA-C Z00.00 Encntr for general adult medical exam w/o abnormal findings G31.84 Mild cognitive impai rment of uncertain or unknown etiology I10 Essential (primary) hypertension E78.5 Hyperlipidemia, unsp ecified J44.9 Chronic obstructive pulmonary disease, unspecified Assessments Date Code Description Provider 07/04/2023 R10.13 Epigastric pain Duane NRuddy Smi th, DO 05/17/2023 G31.84 Mild cognitive i mpairment of uncertain or unknown etiology Rosamaria Day PA-C 05/17/2023 I10 Essential (primary) hyperten tish Rosamaria Day PA-C 05/17/2023 I70.0 Atherosclerosis of aorta Crescencio Day PA-C 05/04/2023 I10 Essential (primary) hyperten tish Zach Ever Ledbetter, DO 05/04/2023 I10 Essential (primary) hyperten tish Lab - [facility] 05/04/2023 M81.0 Age-related oste oporosis without current pathological fracture Zach Ever Ledbetter, DO 02/27/2023 R25.2 Cramp and spasm [...] 2:00 pm - Rosamaria Day PA-C at [facility] 07/04/2023 - Duane Sosa, DO* R10.13 Epigastric pain* New Medication:* Omeprazole 20 [...]
--- OUTSIDE RECORDS SUMMARY | 2023-12-13 03:25 | External Medical Summary | Summary of Care ---
Author Name Unknown Organization [facility] Address [address] [facility] [place] [address] Care Team Providers Care Sales Engineer Account Manager Name Role Phone Rosamaria Day PA-C Primary Care Provid er Reason for Visit * Reason Comments Return Neuro Encounter Details Date Type Department Care Team Description 05/25/2023 Office Visit Neurology, [address] [place] [phone] Tracie Lorenzo MD [address] [place] [address] [address] [place] [address] Dementia of the Alzheimer's type, with late onset, uncomplicated (HCC)* Allergies Active Allergy Reactions Severity Noted Date Comments Dexamethasone 02/15/2004 Venlafaxine Itching,Nausea/vomit in g 01/25/2017 Fentanyl And Related Nausea/vomiting 01/25/2017 Indomethacin 02/15/2004 Levetiracetam Nausea/vomiting 01/25/2017 Pregabalin Other (Please comment) 03/11/2019 Stroke like symptoms Morphine Nausea/vomiting 01/25/2017 Gabapentin 03/14/2006 depression Prednisone Nausea/vomiting 01/25/2017 Propoxyphene Napsylate 02/17/2003 depression documented as of this encounter (statuses as of 07/03/2023) Medications Medication Sig Dispensed Refills Start Date End Date Status traMADol (ULTRAM) 50 MG Tablet Take 1 Tablet by mouth 2 times a day as needed for Pain. 0 Active albuterol-ipratr opium (DUONEB) 2.5-0.5 MG/3ML nebulizer solution Inhale 3 [...] 1 Tablet by mouth daily. 0 Active Umeclidinium-Bernard anterol 62.5-25 MCG/ACT Inhalation Aerosol Powder Breath Activated [...] of the day.. 90 Tablet 3 05/25/2023 08/23/2024 Active Donepezil HCl 5 MG Oral Tablet (Aricept) Take 1 Tablet by mouth daily. 0 05/25/2023 Discontinued documented as of this encounter (statuses as of 07/03/2023) Active Problems Problem Noted Date History of breast cancer 04/24/2023 ADVANCE DIRECTIVE INFORMATION 03/31/2008 Overview: No, Advance Directive brochure offered , patient declined. Benign neoplasm of colon 01/17/2007 Overview: repeat colonoscopy in 5 years CHEST [id number] 08/29/2006 Myalgia and myositis 03/14/2006 DISC DIS IIN-IVU-GCGWIA 03/14/2006 documented as of this encounter (statuses as of 07/03/2023) Resolved Problems Problem Noted Date Resolved Date Malignant neoplasm of upper-outer quadrant of fe male breast 04/30/2008 04/24/2023 Pain in limb 03/14/2006 04/24/2023 CA IN SITU BREAST 06/09/2003 04/24/2023 documented as of this encounter (statuses as of 07/03/2023) Immunizations Name Administration Dates Next Due COVID-19 mRNA, LNP-s, No Pre serve, 2-Dose Series (Pfizer) 01/31/2021,01/02/2021 Pneumococcal Polysaccharide PPV23 (Pneumovax) Seasonal Influenza, Split, IIV3, With Preserve, Inj 08/19/2006 documented as of this encounter Social History Tobacco Use Types Packs/Day Years Used Date Smoking Tobacco: Former Cigarettes 0.5 25 Smokeless Tobacco: Never Alcohol Use Standard Drinks/Week Comments Never 0 (1 standard drink = 0.6 oz pur e alcohol) Sex Assigned at Date Recorded Not on file Job Start Date Occupation Industry Not on file Not on file Not on file documented as of this encounter Progress Notes * Tracie Lorenzo MD - 07/03/2023 5:28 PM EDT PROGRESS NOTE - [facility] Name: Daniela Minor Date: 05/25/2023 SUBJECTIVE: Daniela Minor is a 83 year old Female with advanced dementia. At the last appointment with myself she scored 9/30 on cognitive assessment which is consistent with advanced dementia. We performed work-up including vitamin B12 and TSH level which were unremarkable. She was unable to tolerate MRI brain due to claustrophobia. CT head was not obtained as ordered. She is not allowed to d rive based on her score on cognitive assessment. I will submit paperwork to have her license revoked. There is nobody present in the appointment with her today for collateral information and she is apoor historian. She has continued donepezil 10 mg daily which I recommend she continue. ROS: Review of systems are as per [...] level: Not on file Occupational History Occupation: [employer] Tobacco Use Smoking status: Former Packs/day: 0.50 Years: 25.00 Pack years: 12.50 Types: Cigarettes Smokeless tobacco: Never [...] file Housing Stability: Not on file OBJECTIVE: Exam: Constitutional: Appearance normally developed, well nourished, [...] Distress Orientation: Awake, Alert, and Oriented x 1 Mental status: alert Memory: Registation 0/3 Recall 0/3 Attention: Normal Knowledge: Limited Language: Very limited verbal output. She does not know the date or the month or the year. She doesnot know the president. she cannot spell world forwards or backwards. She cannot perform serial seven subtractions. 3 word recall at 5 minutes is 0/3. Speech: No dysarthria Cranial Nerves: 2 No [...] Neuroimaging: None IMPRESSION: 83 year old female Presents for follow-up evaluation of advanced dementia. RECOMMENDATIONS: #1 advanced dementia. Unfortunately she has been unable to obtain the CT head which was ordered. I did remind her today that she should have this completed. Vitamin B12 and TSH checked recently were normal. 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 Score at the last appointment on cognitive testing was 08/18. She will continue donepezil 10 mg daily. Tracie Lorenzo MD 07/03/2023 5:28 PM documented in this encounter Plan of Treatment Upcoming Encounters Date Type Specialty Care Team Description 11/23/2023 Office Visit Neurology Tracie Lorenzo MD [address] [place] [address] [place] [id number] 04/24/2024 Imaging Radiology 05/01/2024 Office Visit General Surgery Zan Walker MD [address] [place] [address] Health Maintenance Due Date Last Done Comments DXA Scan 1938 Depression Screening, Annual for Pts 12 and Over 1950 DTaP,Tdap,and Td Vaccines (1 - Tdap) 1959 Pneumococcal Vaccine: 65+ Years (2 - PCV) 09/19/2004 09/19/2003 COVID-19 Vaccine (4 - Pfizer series) 01/16/2022 11/21/2021, 01/31/2021, 01/02/2021 Influenza Vaccine (FLU shot) (#1) 2023 08/16/2021, 07/28/2020, 08/14/2019, Additional history exists Zoster Vaccines Completed 11/01/2020, 07/28/2020 GARDASIL-HPV IMMUNIZATION [...] as of this encounter Visit Diagnoses Diagnosis Dementia of the Alzheimer's type, with late onset, uncomplicated (HCC)- Primary Alzheimer's disease documented in this encounter Care Teams Sales Engineer Account Manager Relationship Specialty Start Date End Date Rosamaria Day PA-C [address] [facility] [address] PCP - General Physician Monument Mason 04/24/23 documented as of this encounter
--- OUTSIDE RECORDS SUMMARY | 2023-12-13 03:25 | External Medical Summary ---
Author Name Unknown Address Unknown Organization [facility]:[address] [place] [address] Laboratory Report Ordering Provider Test Date Status DANETTE ZEPEDA 07/04/2023 13:26 Final Observation Date Value Abnormality Reference (Units ) Status Glucose 07/05/2023 09:45 99 70-110 (MG/DL) Final BUN 07/05/2023 09:45 23 6-25 (MG/DL) Final Creatinine 07/05/2023 09:45 1.0 0.5-1.2 (MG/DL) Final Sodium 07/05/2023 09:45 140 135-145 (MEQ/L) Final Potassium 07/05/2023 09:45 4.4 3.5-5.0 (MEQ/L) Final Cl 07/05/2023 09:45 103 95-107 (MEQ/L) Final CO2 07/05/2023 09:45 29 24-31 (MEQ/L) Final Alk Phos 07/05/2023 09:45 84 43-122 (IU/L) Final ALT (Alanine aminotransferase) 07/05/2023 09:45 7 Below low normal 10-40 (IU/L) Final AST (Aspartate aminotransferase) 07/05/2023 09:45 14 3-42 (IU/L) Final Bilirubin, Total 07/05/2023 09:45 0.6 0.1-1.3 (MG/DL) Final Calcium 07/05/2023 09:45 9.4 8.5-10.6 (MG/DL) Final Protein 07/05/2023 09:45 6.6 5.8-8.0 (G/DL) Final Albumin 07/05/2023 09:45 4.0 3.0-5.2 (G/DL) Final GLOBULIN 07/05/2023 09:45 2.6 2.0-3.4 (G/DL) Final GFR (estimated) 07/05/2023 09:45 56 Below low normal >60 (ML/MIN/1.73 SQM) Final Performing Location [facility] [address] [place] [address]
[2023-12-13] MEDS: DONEPEZIL HCL 10 MG TAB PO SCH (08:45)
[2023-12-13] MEDS: UMECLIDINIUM/VILANTEROL 62.5/25MCG 7 PUFFS/INHALER INH SCH (08:45)
[2023-12-13] MEDS: PANTOprazole 40 MG TAB PO SCH (08:45)
--- NOTE | 2023-12-13 19:02 | Hospitalist Progress Note ---
Date of Service December 13, 2023 Assessment & Plan (1) Dementia: Plan: Appears to be chronic and progressive, has reached the point where she is not safe at homeher current living situation partners have made it clear to case management so they do not feel that she can be at home alone anymore, but unfortunately do not seem to be able to/and are not willing to be part of her decision-making process. PT/OT eval and treat, case management working on placement options. Patient does appear to be medically stable. (2) Failure to thrive in adult: Plan: See above, see case management notes. Will need disposition to a safe environment. (3) COPD (chronic obstructive pulmonary disease): Plan: No acute exacerbation suspected Continue maintenance inhalers (4) Hypertension: Plan: Seems to be asymptomatic, pressure is reasonable given the situation. Continue to follow (5) Chronic low back pain: Plan: Continue naproxen, reduced to 250 mg p.o. BID Plan VTE prophylaxis - lovenox Diet - regular Disposition -anticipate need for SNF Admission and Anticipated Discharge Date Admission Date: December 12, 2023 Subjective No meaningful HPI review of systems obtainable. Patient does note that she misses her cat. Case management tried to reach out to familywere not able to get any relatives or people that would be able to service her legal decision maker. Unfortunately the people she was able to get a hold of essentially yelled at hersee case management notes for more detail. Greatly appreciate her efforts. Review of Systems Review of Systems: Unobtainable due to cognitive status Physical Exam Physical Exam: Awake but disoriented. Does not appear to be in any physical distress. Breathing unlabored no accessory muscle use good effort. Skin without rashes pallor or icterus. Neuro without focal deficits. Results & Data Results & Data Vital Signs (Past 12 Hours) Vital Signs Temp Pulse Resp BP Pulse Ox O2 Del Method 12/13/23 14:44 98.1 F 61 18 168/72 H 97 Room Air 12/13/23 07:22 97.7 F 63 17 178/80 H 97 Room Air PG Care Time/CCT Total # of Minutes Spent Total Time Spent with Patient: Total time spent is greater than 50% in coordination of care (as documented) at patient's floor/unit and/or counseling patient: Coding Level of Care Code 54810 SUB INP/OBS CARE 1/25MIN Diagnoses Dementia F03.90 Failure to thrive in adult R62.7 COPD (chronic obstructive pulmonary disease) J44.9 Hypertension I10 Chronic low back pain M54.5; G89.29
--- NOTE | 2023-12-13 19:42 | Electrocardiogram Report ---
Test Reason : Blood Pressure : / mmHG Vent. Rate : 068 BPM Atrial Rate : 068 BPM P-R Int : 132 ms QRS Dur : 076 ms QT Int : 390 ms P-R-T Axes : 071 050 061 degrees QTc Int : 414 ms Normal sinus rhythm Poor R wave progression, consider anterior NC vs. lead placement vs. LVH Abnormal ECG No previous ECGs available Confirmed by John Obrien ([id number]) on 12/13/2023 7:42:04 PM Referred By: Confirmed By:Vinicius Obrien
[2023-12-14] MEDS: ENOXAPARIN INJ 40 MG/0.4 ML SYR SQ SCH (08:39)
--- NOTE | 2023-12-14 10:18 | Hospitalist Progress Note ---
Date of Service December 14, 2023 Assessment & Plan (1) Dementia: Plan: Appears to be chronic and progressive, has reached the point where she is not safe at homeher current living situation partners have made it clear to case management so they do not feel that she can be at home alone anymore, but unfortunately do not seem to be able to/and are not willing to be part of her decision-making process. PT/OT eval and treat, case management working on placement options. Patient is medically stable for transfer once bed and insurance are available . (2) Failure to thrive in adult: Plan: See above, see case management notes. Will need disposition to a safe environment. (3) COPD (chronic obstructive pulmonary disease): Plan: No acute exacerbation suspected Continue maintenance inhalers (4) Hypertension: Plan: Seems to be asymptomatic, pressure is reasonable given the situation. Continue to follow (5) Chronic low back pain: Plan: Continue naproxen, reduced to 250 mg p.o. BID Plan VTE prophylaxis - lovenox Diet - regular Disposition -anticipate need for SNF Admission and Anticipated Discharge Date Admission Date: December 12, 2023 Subjective Patient is pleasantly confused she states she wants to go home she is not oriented to place or time she cannot make appropriate decisions for even simple task questions and her safety at home will be greatly in question about 11/06 365 care Physical Exam Physical Exam: Pleasant and in no distress cardiac is regular lungs are clear Results & Data Results & Data Vital Signs (Past 12 Hours) Vital Signs Temp Pulse Resp BP Pulse Ox O2 Del Method 12/14/23 07:32 198/79 H 12/14/23 07:03 98.1 F 58 L 16 219/82 H 93 Room Air 12/13/23 23:50 98.2 F 64 18 157/86 H 96 Room Air PG Care Time/CCT Total # of Minutes Spent Total Time Spent with Patient: Total time spent is greater than 50% in coordination of care (as documented) at patient's floor/unit and/or counseling patient: Coding Level of Care Code 56365 SUB INP/OBS CARE 12/13MIN Diagnoses Dementia F03.90 Failure to thrive in adult R62.7 COPD (chronic obstructive pulmonary disease) J44.9 Hypertension I10 Chronic low back pain M54.5; G89.29
[2023-12-14] MEDS: cloNIDine HCL 0.1 MG TAB PO PRN (20:01)
[2023-12-14] MEDS: ACETAMINOPHEN 325 MG TAB PO PRN (21:21)
--- NOTE | 2023-12-15 15:24 | Hospitalist Progress Note ---
Date of Service December 15, 2023 Assessment & Plan (1) Dementia: Plan: Appears to be chronic and progressive, has reached the point where she is not safe at home Patient's SO Bill now agreeable to make decisions for patient. Patient's sister Kelsea also involved in decision-making PT/OT, case management working on placement options - referrals placed to [facility] [place] and checking on Phyllis. Patient is medically stable for transfer once bed and insurance are available Observation checks Q15min with bed/chair alarm (2) Failure to thrive in adult: Plan: See above, see case management notes. Will need disposition to a safe environment. (3) COPD (chronic obstructive pulmonary disease): Plan: No acute exacerbation suspected Continue maintenance inhalers (4) Hypertension: Plan: Seems to be asymptomatic, pressure is reasonable given the situation. Continue to follow Clonidine ordered PRN while inpatient (5) Chronic low back pain: Plan: Continue naproxen, reduced to 250 mg p.o. BID Plan VTE prophylaxis - lovenox Diet - regular Disposition -anticipate need for SNF Admission and Anticipated Discharge Date Admission Date: December 12, 2023 Subjective No acute concerns, tearful after being informed she is staying the day Review of Systems Review of Systems: Per subjective Physical Exam Physical Exam: General: NAD Cardiovascular: RRR, no M/R/G Pulmonary: CTAB, no W/R/R Abdomen: Soft, NT/ND, no guarding Extremities: Moving all extremities Integumentary: No suspicious rash or lesion on exposed skin Neurologic: Oriented to first name self only Psychiatric: Intermittently tearful Results & Data Results & Data Vital Signs (Past 12 Hours) Vital Signs Temp Pulse Pulse Resp BP Pulse Ox O2 Del Method 12/15/23 15:03 36.7 C 63 16 209/78 H 97 Room Air 12/15/23 09:29 57 L 138/75 12/15/23 07:31 36.6 C 60 18 189/70 H 95 Room Air PG Care Time/CCT Total # of Minutes Spent Total Time Spent with Patient: Total time spent is greater than 50% in coordination of care (as documented) at patient's floor/unit and/or counseling patient: Coding Level of Care Code 16037 SUB INP/OBS CARE 1/25MIN Diagnoses Dementia F03.90 Failure to thrive in adult R62.7 COPD (chronic obstructive pulmonary disease) J44.9 Hypertension I10 Chronic low back pain M54.5; G89.29
--- NOTE | 2023-12-16 14:26 | Hospitalist Progress Note ---
Date of Service December 16, 2023 Assessment & Plan (1) Dementia: Plan: Appears to be chronic and progressive, has reached the point where she is not safe at home Patient's SO Bill now agreeable to make decisions for patient. Patient's sister Kelsea also involved in decision-making PT/OT, case management working on placement options - referrals placed to [facility] and checking on Phyll[facility]. Patient is medically stable for transfer once bed and insurance are available Observation checks Q15min with bed/chair alarm (2) Failure to thrive in adult: Plan: See above, see case management notes. Will need disposition to a safe environment. (3) COPD (chronic obstructive pulmonary disease): Plan: No acute exacerbation suspected Continue maintenance inhalers (4) Hypertension: Plan: Seems to be asymptomatic, pressure is reasonable given the situation. Continue to follow Clonidine ordered PRN while inpatient (5) Chronic low back pain: Plan: Continue naproxen, reduced to 250 mg p.o. BID Plan VTE prophylaxis - lovenox Diet - regular Disposition -anticipate need for SNF Admission and Anticipated Discharge Date Admission Date: December 12, 2023 Subjective No acute concerns - denies pain, SOB, CP, though with dementia difficult to fully assess Review of Systems Review of Systems: Per subjective Physical Exam Physical Exam: General: Well-appearing, NAD, sitting in chair next to bed HEENT: EOM grossly intact, normal conjunctivae Pulmonary: Breathing comfortably on RA, no active cough Integumentary: No suspicious rash or lesion on exposed skin Neurologic: Oriented to first name only Psychiatric: Appropriate mood/affect Results & Data Results & Data Vital Signs (Past 12 Hours) Vital Signs Temp Pulse Resp BP Pulse Ox O2 Del Method 12/16/23 08:27 36.4 C L 58 L 16 165/59 H 96 Room Air PG Care Time/CCT Total # of Minutes Spent Total Time Spent with Patient: Total time spent is greater than 50% in coordination of care (as documented) at patient's floor/unit and/or counseling patient: Coding Level of Care Code 31740 SUB INP/OBS CARE 1/25MIN Diagnoses Dementia F03.90 Failure to thrive in adult R62.7 COPD (chronic obstructive pulmonary disease) J44.9 Hypertension I10 Chronic low back pain M54.5; G89.29
[2023-12-16] MEDS: OLANZAPINE 2.5 MG TAB PO PRN (20:12)
--- NOTE | 2023-12-17 13:07 | Hospitalist Progress Note ---
Date of Service December 17, 2023 Assessment & Plan (1) Dementia: Plan: Appears to be chronic and progressive, has reached the point where she is not safe at home Patient's SO Bill now agreeable to make decisions for patient. Patient's sister Kelsea also involved in decision-making PT/OT, case management involved - referrals placed to [facility] and checking on [place]. Patient is medically stable for transfer once bed and insurance are available Observation checks Q15min with bed/chair alarm (2) Failure to thrive in adult: Plan: See above, see case management notes. Will need disposition to a safe environment. -Weight stable from 2019 (3) COPD (chronic obstructive pulmonary disease): Plan: No acute exacerbation suspected Continue maintenance inhalers (4) Hypertension: Plan: Per last PCP note was supposed to be on amlodipine 5mg and receiving pill packs from pharmacy --> given persistent elevations will restart 12/18 Will keep clonidine 0.1mg prn for now (5) Chronic low back pain: Plan: Continue naproxen, reduced to 250 mg p.o. BID Plan VTE prophylaxis - lovenox Disposition -continued inpatient stay, medically stable Admission and Anticipated Discharge Date Admission Date: December 12, 2023 Subjective Patient with dementia, unable to answer my questions appropriately. Rummaging through her bag. . Review of Systems Review of Systems: Unobtainable due to cognitive status Physical Exam Physical Exam: General: sitting up in the chair, tearful at times VS as above Resp: normal respiratory effort, lungs clear to auscultation CV: RRR, no murmur, Extremities: Moves all extremities, no edema Neuro: Alert and oriented to self Results & Data Results & Data Vital Signs (Past 12 Hours) Vital Signs Temp Pulse Resp BP Pulse Ox O2 Del Method 12/17/23 08:01 36.7 C 61 16 178/69 H 96 Room Air PG Care Time/CCT Total # of Minutes Spent Total Time Spent with Patient: Total time spent is greater than 50% in coordination of care (as documented) at patient's floor/unit and/or counseling patient: Coding Level of Care Code 48973 SUB INP/OBS CARE 2/35MIN Diagnoses Dementia F03.90 Failure to thrive in adult R62.7 COPD (chronic obstructive pulmonary disease) J44.9 Hypertension I10 Chronic low back pain M54.5; G89.29
[2023-12-18] MEDS: amLODIPine BESYLATE 5 MG TAB PO SCH (08:23)
--- NOTE | 2023-12-18 11:30 | Hospitalist Progress Note ---
Date of Service December 18, 2023 Assessment & Plan (1) Dementia: Plan: Appears to be chronic and progressive, has reached the point where she is not safe at home Patient's SO Bill now agreeable to make decisions for patient. Patient's sister Kelsea also involved in decision-making PT/OT, case management involved - referrals placed to [facility] and checking on [place]. Patient is medically stable for transfer once bed and insurance are available Observation checks Q15min with bed/chair alarm Patient has required multiple doses of zyprexa for agitation Will start 12.5mg Seroquel at bedtime (2) Failure to thrive in adult: Plan: See above, see case management notes. Will need disposition to a safe environment. -Weight stable from 2019 (3) COPD (chronic obstructive pulmonary disease): Plan: No acute exacerbation suspected Continue maintenance inhalers (4) Hypertension: Plan: Per last PCP note was supposed to be on amlodipine 5mg and receiving pill packs from pharmacy --> given persistent elevations will restart 12/18 Will keep clonidine 0.1mg prn for now (5) Chronic low back pain: Plan: Continue naproxen, reduced to 250 mg p.o. BID Plan VTE prophylaxis - lovenox Disposition -continued inpatient stay, medically stable Admission and Anticipated Discharge Date Admission Date: December 12, 2023 Subjective Patient with significant dementia and confusion, most of her talking is incomprehensible. Requiring very frequent redirection required from nursing. Roams in the room. Provided with ice cream and magazine for redirection. Review of Systems Review of Systems: Unobtainable due to cognitive status Physical Exam Physical Exam: General: ambulates in room, often incomprehensible speech, flight of ideas Resp: normal respiratory effort, lungs clear to auscultation CV: RRR, no murmur, Extremities: Moves all extremities, Neuro: Alert and oriented to self Results & Data Results & Data Vital Signs (Past 12 Hours) Vital Signs Temp Pulse Resp BP Pulse Ox O2 Del Method 12/18/23 07:54 36.7 C 71 18 164/76 H 98 Room Air PG Care Time/CCT Total # of Minutes Spent Total Time Spent with Patient: Total time spent is greater than 50% in coordination of care (as documented) at patient's floor/unit and/or counseling patient: Coding Level of Care Code 09313 SUB INP/OBS CARE 235MIN Diagnoses Dementia F03.90 Failure to thrive in adult R62.7 COPD (chronic obstructive pulmonary disease) J44.9 Hypertension I10 Chronic low back pain M54.5; G89.29
[2023-12-18] MEDS: QUEtiapine FUMARATE 25 MG TABLET PO SCH (20:31)
[2023-12-19] MEDS: COUGH DROP (SUGAR FREE) LOZ 24 LOZ/1 BOX BUCCAL ONE (10:00)
--- NOTE | 2023-12-19 11:02 | Hospitalist Progress Note ---
Date of Service December 19, 2023 Assessment & Plan (1) Dementia: Plan: Appears to be chronic and progressive, has reached the point where she is not safe at home Patient's SO Bill now agreeable to make decisions for patient. Patient's sister Kelsea also involved in decision-making PT/OT, case management involved - referrals placed to [facility] and checking on [facility]. 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 Will need disposition to a safe environment. -Weight stable from 2019 (3) COPD (chronic obstructive pulmonary disease): Plan: No acute exacerbation suspected Continue maintenance inhalers (4) Hypertension: Plan: Per last PCP note was supposed to be on amlodipine 5mg and receiving pill packs from pharmacy --> given persistent elevations will restart 12/18 (5) Chronic low back pain: Plan: Continue naproxen, reduced to 250 mg p.o. BID Plan VTE prophylaxis - lovenox Disposition -continued inpatient stay, medically stable Admission and Anticipated Discharge Date Admission Date: December 12, 2023 Subjective Patient seen sitting on the side of the bed. Alert to self only. Does report that her brother was here yesterday. Per nursing slept better with seroquel last night. Review of Systems Review of Systems: All systems reviewed & are unremarkable except as noted in Subjective Physical Exam Physical Exam: General: ambulates in room, often incomprehensible speech, flight of ideas Resp: normal respiratory effort, lungs clear to auscultation CV: RRR, no murmur, Extremities: Moves all extremities, Neuro: Alert and oriented to self Results & Data Results & Data Vital Signs (Past 12 Hours) Vital Signs Temp Pulse Resp BP Pulse Ox O2 Del Method 12/19/23 09:54 191/84 H 12/19/23 07:52 36.6 C 63 17 97 Room Air PG Care Time/CCT Total # of Minutes Spent Total Time Spent with Patient: Total time spent is greater than 50% in coordination of care (as documented) at patient's floor/unit and/or counseling patient: Coding Level of Care Code 59237 SUB INP/OBS CARE 12/13MIN Diagnoses Dementia F03.90 Failure to thrive in adult R62.7 COPD (chronic obstructive pulmonary disease) J44.9 Hypertension I10 Chronic low back pain M54.5; G89.29
[2023-12-20] MEDS: amLODIPine BESYLATE 5 MG TAB PO SCH (08:56)
--- NOTE | 2023-12-20 12:05 | Hospitalist Progress Note ---
Date of Service December 20, 2023 Assessment & Plan (1) Dementia: Plan: Appears to be chronic and progressive, has reached the point where she is not safe at home Patient's SO Bill agreeable to make decisions for patient, however is on hospice. Other family have been involved but have not wanted to be POA. 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 Will need disposition to a safe environment. -Weight stable from 2019 (3) COPD (chronic obstructive pulmonary disease): Plan: No acute exacerbation suspected Continue maintenance inhalers (4) Hypertension: Plan: Per last PCP note was supposed to be on amlodipine 5mg and receiving pill packs from pharmacy --> given persistent elevations will restart increased to 10mg 12/20 (5) Chronic low back pain: Plan: Continue naproxen, reduced to 250 mg p.o. BID Plan VTE prophylaxis - lovenox Disposition -continued inpatient stay, medically stable Admission and Anticipated Discharge Date Admission Date: December 12, 2023 Subjective Patient seen sitting on the side of the bed. Seems more calm today continues to be very confused Review of Systems Review of Systems: Unobtainable due to cognitive status Physical Exam Physical Exam: General: ambulates in room, often incomprehensible speech, flight of ideas Resp: normal respiratory effort, lungs clear to auscultation CV: RRR, no murmur, Extremities: Moves all extremities, Neuro: Alert and oriented to self Results & Data Results & Data Vital Signs (Past 12 Hours) Vital Signs Temp Pulse Resp BP Pulse Ox O2 Del Method 12/20/23 07:53 36.8 C 61 15 192/72 H 96 Room Air PG Care Time/CCT Total # of Minutes Spent Total Time Spent with Patient: Total time spent is greater than 50% in coordination of care (as documented) at patient's floor/unit and/or counseling patient: Coding Level of Care Code 71799 SUB INP/OBS CARE 2/35MIN Diagnoses Dementia F03.90 Failure to thrive in adult R62.7 COPD (chronic obstructive pulmonary disease) J44.9 Hypertension I10 Chronic low back pain M54.5; G89.29
--- NOTE | 2023-12-21 10:19 | Hospitalist Progress Note ---
Date of Service December 21, 2023 Assessment & Plan (1) Dementia: Plan: Appears to be chronic and progressive, has reached the point where she is not safe at home Patient's SO Bill agreeable to make decisions for patient, however is on hospice. Other family (niece) have been involved but have not wanted to be POA. 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 Will need disposition to a safe environment. -Weight stable from 2019 (3) COPD (chronic obstructive pulmonary disease): Plan: No acute exacerbation suspected Continue maintenance inhalers (4) Hypertension: Plan: Per last PCP note was supposed to be on amlodipine 5mg and receiving pill packs from pharmacy --> given persistent elevations will restart increased to 10mg 12/20 (5) Chronic low back pain: Plan: Continue naproxen, reduced to 250 mg p.o. BID Plan VTE prophylaxis - lovenox Disposition -continued inpatient stay, medically stable Admission and Anticipated Discharge Date Admission Date: December 12, 2023 Subjective Patient seen in room making her bed. confused. voices no acute concerns. Review of Systems Review of Systems: Unobtainable due to cognitive status Physical Exam Physical Exam: General: ambulates in room, often incomprehensible speech, flight of ideas Resp: normal respiratory effort, lungs clear to auscultation CV: RRR, no murmur, Extremities: Moves all extremities, Neuro: Alert and oriented to self Results & Data Results & Data Vital Signs (Past 12 Hours) Vital Signs Temp Pulse Resp BP Pulse Ox O2 Del Method 12/21/23 08:27 176/68 H 12/21/23 07:12 36.7 C 66 18 195/68 H 96 Room Air PG Care Time/CCT Total # of Minutes Spent Total Time Spent with Patient: Total time spent is greater than 50% in coordination of care (as documented) at patient's floor/unit and/or counseling patient: Coding Level of Care Code 97905 SUB INP/OBS CARE 25MIN Diagnoses Dementia F03.90 Failure to thrive in adult R62.7 COPD (chronic obstructive pulmonary disease) J44.9 Hypertension I10 Chronic low back pain M54.5; G89.29
[2023-12-22] MEDS: COUGH DROP (SUGAR FREE) LOZ 24 LOZ/1 BOX BUCCAL PRN (09:07)
--- NOTE | 2023-12-22 12:04 | Hospitalist Progress Note ---
Date of Service December 22, 2023 Assessment & Plan (1) Dementia: Plan: Appears to be chronic and progressive, has reached the point where she is not safe at home Patient's SO Bill agreeable to make decisions for patient, however is on hospice. Other family (niece) have been involved but have not wanted to be POA. 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 Will need disposition to a safe environment. -Weight stable from 2019 (3) COPD (chronic obstructive pulmonary disease): Plan: No acute exacerbation suspected Continue maintenance inhalers (4) Hypertension: Plan: Per last PCP note was supposed to be on amlodipine 5mg and receiving pill packs from pharmacy --> given persistent elevations will restart increased to 10mg 12/20 (5) Chronic low back pain: Plan: Continue naproxen, reduced to 250 mg p.o. BID Plan VTE prophylaxis - lovenox Disposition -continued inpatient stay, medically stable Admission and Anticipated Discharge Date Admission Date: December 12, 2023 Subjective Patient seen ambulating in the room, continues to be confused. No acute concerns at this time Review of Systems Review of Systems: Unobtainable due to cognitive status Physical Exam Physical Exam: General: ambulates in room, often incomprehensible speech, flight of ideas Resp: normal respiratory effort, lungs clear to auscultation CV: RRR, no murmur, Extremities: Moves all extremities, Neuro: Alert and oriented to self Results & Data Results & Data Vital Signs (Past 12 Hours) Vital Signs Temp Pulse Resp BP Pulse Ox O2 Del Method 12/22/23 08:22 36.7 C 66 16 175/66 H 98 Room Air PG Care Time/CCT Total # of Minutes Spent Total Time Spent with Patient: Total time spent is greater than 50% in coordination of care (as documented) at patient's floor/unit and/or counseling patient: Coding Level of Care Code 70696 SUB INP/OBS CARE 12/13MIN Diagnoses Dementia F03.90 Failure to thrive in adult R62.7 COPD (chronic obstructive pulmonary disease) J44.9 Hypertension I10 Chronic low back pain M54.5; G89.29
--- NOTE | 2023-12-23 11:27 | Hospitalist Progress Note ---
Date of Service December 23, 2023 Assessment & Plan (1) Dementia: Plan: Appears to be chronic and progressive, has reached the point where she is not safe at home Patient's SO Bill agreeable to make decisions for patient, however was on hospice and passed (pt unaware) - Other family (niece) have been involved but have not wanted to be POA. 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 Will need disposition to a safe environment. -Weight stable from 2019 (3) COPD (chronic obstructive pulmonary disease): Plan: No acute exacerbation suspected Continue maintenance inhalers (4) Hypertension: Plan: Per last PCP note was supposed to be on amlodipine 5mg and receiving pill packs from pharmacy --> given persistent elevations will restart increased to 10mg 12/20 (5) Chronic low back pain: Plan: Continue naproxen, reduced to 250 mg p.o. BID Plan VTE prophylaxis - lovenox Disposition -continued inpatient stay, medically stable Admission and Anticipated Discharge Date Admission Date: December 12, 2023 Subjective Patient sitting on the side of the bed. Does talk about wanting to leave, but is easily redirectable. No acute concerns at this time Review of Systems Review of Systems: Unobtainable due to cognitive status Physical Exam Physical Exam: General: ambulates in room, often incomprehensible speech, flight of ideas Resp: normal respiratory effort, lungs clear to auscultation CV: RRR, no murmur, Extremities: Moves all extremities, Neuro: Alert and oriented to self Results & Data Results & Data Vital Signs (Past 12 Hours) Vital Signs Temp Pulse Resp BP Pulse Ox O2 Del Method 12/23/23 07:25 36.8 C 61 16 161/71 H 98 Room Air PG Care Time/CCT Total # of Minutes Spent Total Time Spent with Patient: Total time spent is greater than 50% in coordination of care (as documented) at patient's floor/unit and/or counseling patient: Coding Level of Care Code 85483 SUB INP/OBS CARE Diagnoses Dementia F03.90 Failure to thrive in adult R62.7 COPD (chronic obstructive pulmonary disease) J44.9 Hypertension I10 Chronic low back pain M54.5; G89.29
--- NOTE | 2023-12-24 10:30 | Discharge Summary ---
Discharge Summary Date of Service December 24, 2023 Notes For Next Care Provider amlodipine increased to 10mg Seroquel started Medication Changes From Visit amlodipine increased to 10mg Seroquel started Admission HPI Per Admitting Provider Daniela Minor is an 83-year-old female who presents to the ER with her partner's sister and partner's sister's due to need for placement. The patient is unsure why she is here. She reports having left-sided back pain but cannot expand on this in any way. She usually lives with her partner (Ethan) who is listed as her primary contact but currently not available via phone and reportedly was recently life flighted to [facility] due to a heart attack recently. She is not but has a sister in [place] (Kelsea [phone]) and estranged children whom reportedly she has not seen in 50 to 60 years. After her partner was life flighted there was concern from her sister who couldn't get a hold of her and contacted her neighbors that she was confused and wandering in her back garden. She has been living with her partner's sister and partner's sister's (Adelfo listed as secondary contact) for the last few nights but they are unable to care for her and they are looking at long-term placement options as unclear even when her partner gets out of hospital whether he will be able to continue to care for her. At the very least they are looking for respite care. There is less of a concern for acute confusion and they feel her confusion is longer standing. They report her driving license was taken away 2 years ago due to dementia. Discussed care with her primary care office Alexandra Hercules PA-C who is aware of the patient and is not surprised that she would end up in hospital due to her dementia if upon it was thought that to care for her. She has a diagnosis of mild cognitive impairment on her chart so she thinks this is an understatement. Requested fax for previous neurology notes, PCP note and prior imaging. Discussed with her sister in [place] ([phone]) who is presumably along with her sisters and brothers the next of kin since the patient is not ma rried and children are estranged and raised by other families. She has 3 brothers and 2 other sisters. Wendie Aguilera Iván [phone], Kelli Coates [phone], Jaxon, [place]. Her sister reports around [place] she was taking care of her house and keeping it clean with taking care of the dogs although she does note the patient has chronic short-term memory loss it appears to be much worse than around this time. Principal Dx & Hospital Course #1 = Principal Diagnosis (1) Dementia: Appears to be chronic and progressive, has reached the point where she is not safe at home Patient's SO Bill agreeable to make decisions for patient, however was on hospice and passed (pt unaware) Patient is medically stable for transfer once bed and insurance are available --> discharge to [facility] 12/24 (all medications were sent to their facility 12/21/2023) Continue 12.5mg Seroquel at bedtime (2) Failure to thrive in adult: Will need disposition to a safe environment. -Weight stable from 2019 (3) COPD (chronic obstructive pulmonary disease): No acute exacerbation suspected Continue maintenance inhalers (4) Hypertension: Continue amlodipine 10mg daily (5) Chronic low back pain: Continue naproxen, reduced to 250 mg p.o. BID Plan Dispo: discharge to [facility] today Discharge Exam General: ambulates in room, often incomprehensible speech, flight of ideas Resp: normal respiratory effort, lungs clear to auscultation CV: RRR, no murmur, Extremities: Moves all extremities, Neuro: Alert and oriented to self Updated Medication List Medication Instructions Recorded Confirmed Type fluticasone propionate 50 2 spray intranasal BID 08/16/18 05/29/20 History mcg/actuation nasal spray,suspension (Flonase Allergy Relief) acetaminophen 325 mg tablet 650 mg (2 x 325 mg) PO Q4H PRN 12/21/23 Rx Pain 30 days #60 tabs albuterol sulfate 90 mcg/actuation 2 puff inhalation Q6H PRN Wheezing 12/21/23 Rx aerosol inhaler #8.5 grams amlodipine 5 mg tablet (Norvasc) 10 mg (2 x 5 mg) PO QAM 90 days 12/21/23 Rx #180 tabs calcium carbonate 500 mg-vitamin 1 tab PO QAM 90 days #90 tabs 12/21/23 Rx D3 5 mcg (200 unit) tablet donepezil 10 mg tablet 10 mg PO DAILY 90 days #90 tabs 12/21/23 Rx lorazepam 0.5 mg tablet 0.25 mg (1/2 x 0.5 mg) PO DAILY 12/21/23 Rx PRN anxiety #6 tabs multivitamin 1 tab PO QAM 30 days #30 tabs 12/21/23 Rx naproxen 250 mg tablet 250 mg PO BIDM 30 days #60 tabs 12/21/23 Rx omeprazole 20 mg capsule,delayed 20 mg PO DAILY .for 6 weeks 30 12/21/23 Rx release days #30 caps quetiapine 25 mg tablet 12.5 mg (1/2 x 25 mg) PO QPM 90 12/21/23 Rx days #45 tabs umeclidinium 62.5 mcg-vilanterol 1 inh inhalation DAILY #60 ea 12/21/23 Rx 25 mcg/actuation powdr for inhalation (Anoro Ellipta) Hospital Stay Data Consultations 12/12/23 15:26 ED Decision to Admit Stat Diagnostic Imagining Performed 12/12/23 16:00 CT head/brain wo con Stat Pending Results Patient Have Any Pending Studies at Discharge: No Discharge Instructions Given to Patient (Per Discharging Provider) Sleep/wake cycles much improved after starting Seroquel Amlodipine was increased to 10mg during stay Will need safe environment. Reorients well. Did not complain of back pain while here. Medications [facility]. Total Time Total Time Spent Total Time Spent (In Minutes): Time spend day of discharge 35 minutes including direct patient care, medication reconciliation, documentation, review of labs and images, and coordination of care. Coding Level of Care Code 92535 INP/OBS DISCH >30 MIN Diagnoses Dementia F03.90 Failure to thrive in adult R62.7 COPD (chronic obstructive pulmonary disease) J44.9 Hypertension I10 Chronic low back pain M54.5; G89.29
== END 2023-12-24 12:28 | disposition home or self-care (01) ==
LOC: EDBD → ED 11:58 → MERGE 11:58 → 3N 15:32 → INTOOBSV 15:32 → SUATTDRO 15:32 → 3N 18:10